=== PATIENT | female | born 1940 | race Caucasian/White ===

== ENCOUNTER 2023-11-29 09:17 | Inpatient (IN) | payer MEDICARE, SELFPAY ==
[2023-11-29] VITALS (11 sets, daily range): BP systolic 111–133; BP diastolic 34–78; PULSE 69–78; RESP 16–38; TEMP 36.6–37.2; O2SAT 96–100; BMI 28.1; BMI 28.0
--- NOTE | 2023-11-29 | ECG_ITS ---
Test Reason : SOB/CHEST PAIN Blood Pressure : / mmHG Vent. Rate : 070 BPM Atrial Rate : 070 BPM P-R Int : 278 ms QRS Dur : 142 ms QT Int : 422 ms P-R-T Axes : 090 -73 059 degrees QTc Int : 455 ms Atrial-paced rhythm with prolonged AV conduction Right bundle branch block Left anterior fascicular block Bifascicular block Abnormal ECG No previous ECGs available Referred By: Lulu Lew Electronically Signed By:WILFREDO ERICKSON
--- NOTE | ~2023-11-29 | XR_ITS ---
EXAMINATION: XR CHEST CLINICAL INFORMATION: Congestive heart failure COMPARISON: None available. TECHNIQUE: Frontal view of the chest was obtained. FINDINGS: Dual lead pacer noted unchanged and intact. Sternotomy wires intact. No significant abnormality is noted involving the heart, lungs, mediastinum, bony thorax or soft tissues. XR/XR chest 1V IMPRESSION: Unremarkable examination. Electronically signed by: Usama Brito MD 12/08/2023 11:06 AM EDT RP
--- NOTE | ~2023-11-29 | XR_ITS ---
EXAMINATION: XR CHEST CLINICAL INFORMATION: Dyspnea. COMPARISON: None available. TECHNIQUE: Frontal view of the chest was obtained. FINDINGS: Left-sided pacer with leads overlying the expected location of the right atrium and right ventricle. Median sternotomy wires. Coronary artery calcifications versus stent. No significant cardiomediastinal contour abnormality. No dense consolidation, pleural effusion or pneumothorax. No acute osseous findings. XR/XR chest 1V IMPRESSION: No acute cardiopulmonary findings. Electronically signed by: Jo Baez MD 11/29/2023 11:39 AM EDT
--- NOTE | ~2023-11-29 | XR_ITS ---
EXAMINATION: XR CHEST CLINICAL INFORMATION: Increased shortness of breath. COMPARISON: Chest radiograph dated 11/29/2023. TECHNIQUE: Frontal view of the chest was obtained. FINDINGS: The lungs are clear. The cardiomediastinal silhouette is normal in size. There is no pleural effusion or pneumothorax. No acute osseous abnormality. XR/XR chest 1V IMPRESSION: No acute cardiopulmonary findings. Electronically signed by: Naman James MD 12/01/2023 09:51 AM EDT
--- NOTE | 2023-11-29 09:49 | ED.SOB ---
HPI - SOB/Dyspnea General Chief Complaint: General Medical Stated Complaint: SOB, weakness, A&OX4 Time Seen by Provider: 11/29/23 09:22 Source: patient and old records reviewed Mode of arrival: EMS Limitations: no limitations History of Present Illness ED Provider: RENETTA DUONG Narrative: 83 yo female with PMH of STEMI on plavix, VTE on eliquis, CHF on diuretics, ASD repair s/p sternotomy, HTN, DM, HLD, GERD, PPM for SSS here with c/o getting her Pfizer COVID vaccine on Saturday and then that night started to feel ill with fevers, malaise, chest pain, dyspnea. She feels overall not well. She denies this happening before. She takes all of her medications. Her doctors are at [facility]. She has used inhalers in the past. Her breathing is labored with ambulation. [facility] 2022 hemoglobin 10.2 MD elicited complaint: shortness of breath Pertinent past history: congestive heart failure Onset (ago): day(s) (1) Context: other (s/p vaccine) Timing: constant Severity: moderate Exacerbating factors: exertion Relieving factors: rest Known history of: congestive heart failure Associated symptoms: chest pain, fever and other (malaise, fatigue chills) Treatment prior to arrival: none Related Data Home Medications ?Medication ?Instructions ?Recorded ?Confirmed apixaban 5 mg tablet (Eliquis) 5 mg PO BID 11/29/23 aripiprazole 10 mg tablet 10 mg PO BEDTIME 11/29/23 clopidogrel 75 mg tablet 75 mg PO DAILY 11/29/23 duloxetine 60 mg capsule,delayed 120 mg PO DAILY 11/29/23 release empagliflozin 25 mg tablet 25 mg PO DAILY 11/29/23 (Jardiance) ezetimibe 10 mg tablet 10 mg PO DAILY 11/29/23 glipizide 5 mg tablet, extended 5 mg PO DAILY 11/29/23 release 24 hr lamotrigine 100 mg tablet 100 mg PO BEDTIME 11/29/23 lorazepam 0.5 mg tablet 0.5 mg PO DAILY PRN anxiety attack 11/29/23 metoprolol succinate 100 mg 50 mg PO DAILY 11/29/23 tablet,extended release 24 hr pantoprazole 40 mg tablet,delayed 40 mg PO BID 11/29/23 release ranolazine 500 mg tablet,extended 500 mg PO BID 11/29/23 release,12 hr rosuvastatin 40 mg tablet 40 mg PO DAILY 11/29/23 sitagliptin phosphate 100 mg 100 mg PO DAILY 11/29/23 tablet (Januvia) torsemide 10 mg tablet mg PO 11/29/23 Allergies Allergy/AdvReac Type Severity Reaction Status Date / Time Penicillins Allergy Anaphylaxis Verified 11/29/23 09:26 vancomycin Allergy Hives Verified 11/29/23 09:26 Review of Systems Review of Systems: Constitutional : No Fever, No Chills ENT/Mouth : No Hoarseness, No sore throat, No Rhinorrhea Eyes: No Redness, No Discharge, No Vision Changes Cardiovascular : pos Chest Pain, positive SOB, positive Dyspnea on Exertion, No Edema, pos orthopnea Respiratory : positive Cough, No Sputum, no Wheezing, Gastrointestinal : No Nausea, No Vomiting, No Diarrhea, No abdominal Pain Genitourinary : No Dysuria, No Hematuria Musculoskeletal : No joint pain, No Myalgias Skin : No rash Neuro : No Weakness, No Numbness, No Headache Psych : No anxiety, depression All other systems reviewed and are negative [facility] Past Medical History Attestation statement: The following information was validated with the patient. Source: old records reviewed Medical History Sick sinus syndrome Pacemaker Diabetes Hyperlipidemia HTN (hypertension) Pulmonary embolus ASD (atrial septal defect) CAD (coronary artery disease) Social History Social History (Updated 11/29/23 @ 09:53 by Lulu Lew DO) Patient Tobacco Use Status: Never used Tobacco Smoked in Last 30 Days: No Use of substances other than those prescribed or required for medical reasons: No Advance Directives: Yes Advance Directives Information Provided: Yes Advance Directives on File: No Physical Exam Vital Signs: Vital Signs: Last Vital Signs Temp 98.8 F 11/29/23 11:50 Pulse 70 11/29/23 11:50 Resp 23 H 11/29/23 11:50 BP 126/54 L 11/29/23 11:50 Pulse Ox 99 11/29/23 11:09 O2 Del Method Nasal Cannula 11/29/23 11:09 O2 Flow Rate 2 11/29/23 11:09 BMI result Body Mass Index 28.1 Appearance: Alert. Oriented X3. No acute distress. Eyes: Pupils equal, round and reactive to light. ENT: Pharynx normal. Neck: Normal inspection. Neck supple. CVS: Normal heart rate and rhythm. Pulses normal. Respiratory: No respiratory distress. Breath sounds bases diminished Abdomen: Soft and nontender. Skin: Skin warm and dry. pale appearing skin color. Normal skin turgor. Extremities: No lower extremity edema. No calf ttp Neuro: Oriented X 3. No motor deficit. No sensory deficit. Course Course Course Narrative: recent CAD and STEMI crit under 30 has had on and off black stools type and screen one unit of blood and likely IV lasix after ordered denies rectal bleeding that she is aware of IV protonix ordered Medications Administered Discontinued Medications Generic Name Dose Route Start Last Admin Trade Name Freq PRN Reason Stop Dose Admin Pantoprazole Sodium 40 mg 11/29/23 10:18 11/29/23 11:06 Pantoprazole Sodium 40 Mg/10 Ml Vial IVPUSH 11/29/23 10:19 40 mg ONCE ONE Administration Medical Decision Making Medical Decision Making [facility] Narrative: 83 yo female with PMH of STEMI on plavix, VTE on eliquis, CHF on diuretics, ASD repair s/p sternotomy, HTN, DM, HLD, GERD, PPM for SSS here with c/o fatigue, fevers, chills, MACIAS and chest pains post COVID vaccine on Saturday. She became ill the night of her vaccine. At this time will need basic labs, CXR, viral panel, BNP and troponin. Doubt VTE given her very aggressive plavix and eliquis use - she states her applied psychology chair is aware. At this time could viral syndrome, CHF, pneumonitis, anemia given pallor Differential Diagnosis Differential Diagnoses: The differential diagnosis associated with the presentation includes viral syndrome, CHF, pneumonitis, anemia Admission/Observation Consideration of admission/observation: Escalation of care including admission/observation considered admit Consult Healthcare Provider Management of the patient was discussed with: Hospitalist Lab Data [facility] Lab Attestation statement: I reviewed the patient's lab results. 11/29/23 10:05 11/29/23 10:05 Labs: Lab Results 11/29/23 11/29/23 11/29/23 Range/Units 10:04 10:05 10:12 WBC 7.5 (4.8-10.8) X10*3/uL RBC 3.89 L (4.20-5.50) X10*6/uL Hgb 7.1 L (12.0-16.0) g/dl Hct 26.4 L (37.0-47.0) % MCV 67.9 L (80.0-98.0) fL MCH 18.3 L (27.0-33.0) pg MCHC 26.9 L (31.0-35.0) g/dl RDW 18.8 H (11.0-16.0) % Plt Count 322 (160-400) X10*3/uL MPV 9.8 (9.4-12.3) fL Immature Gran % (Auto) 0.4 (0.0-0.4) % Neut % (Auto) 80.4 H (45-73) % Lymph % (Auto) 6.8 L (20-40) % [place] % (Auto) 10.3 (2-11) % Eos % (Auto) 1.6 (0-4) % Baso % (Auto) 0.5 (0-2) % Lymph # (Auto) 0.5 L (1.2-4.9) X10*3/uL [place] # (Auto) 0.8 (0.1-1.2) X10*3/uL Eos # (Auto) 0.1 (0.0-0.4) X10*3/uL Baso # (Auto) 0.0 (0.0-0.2) X10*3/uL Abs Immat Gran (auto) 0.03 (0.00-0.03) X10*3/uL Absolute Neuts (auto) 6.0 (2.0-8.3) x10*3/uL Absolute Nucleated RBC 0.030 H (0.0-0.012) X10*3/uL Nucleated RBC % (auto) 0.4 H (0.0-0.2) /100WBC VBG pH 7.37 (7.32-7.43) VBG pCO2 58 mmHg VBG pO2 49 mmHg VBG HCO3 34 H (22-26) mmol/L VBG O2 Saturation 73.0 % VBG Base Excess 8.0 mmol/L Sodium 141 (135-145) mmol/L Potassium 3.4 (3.3-5.1) mmol/L Chloride 102 (96-108) mmol/L Carbon Dioxide 33 H (22-29) mmol/L Anion Gap 9 L (12-20) BUN 16 (9-16) mg/dL Creatinine 0.88 (0.5-1.4) mg/dL Estim Creat Clear Calc 51.3 Estimated GFR > 60 Random Glucose 214 H (60-115) mg/dL Calcium 9.2 (8.4-10.2) mg/dL Magnesium 2.4 (1.6-2.6) mg/dL Total Bilirubin 0.5 (0.0-1.0) mg/dL Direct Bilirubin 0.2 (0.0-0.5) mg/dL AST 15 (5-31) U/L ALT 12 (0-31) U/L Alkaline Phosphatase 100 (39-117) U/L Troponin I High Sens 9.8 (<3.5-17.0) ng/L C-Reactive Protein 1.22 H (< or = 0.50) mg/dL B-Natriuretic Peptide 726 H (<100) pg/mL Total Protein 6.7 (6.5-8.0) g/dL Albumin 3.8 (3.5-5.0) g/dL Lipase 19 (8-78) U/L Procalcitonin 0.13 ng/mL Urine Color Yellow Urine Appearance Clear Urine pH 5.5 (5.0-9.0) Ur Specific [place] 1.015 (1.005-1.025) Urine Protein Trace (Neg-Trace) mg/dL Urine Glucose (UA) >=1000 H (Negative) mg/dL Urine Ketones Negative (Negative) mg/dL Urine Blood Negative (Negative) Urine Nitrite Negative (Negative) Ur Leukocyte Esterase Small (1+) H (Negative) Urine RBC 0-2 (0-2) /HPF Urine WBC 21-50 H (0-5) /HPF Ur Squamous Epith Cells 3-5 (0-2) /HPF Urine Bacteria None Seen (None Seen) Hyaline Casts 0-2 (0-2) /LPF Stool Occult Blood (NEGATIVE) Influenza Type A (PCR) NEGATIVE (Negative) Influenza Type B (PCR) NEGATIVE (Negative) RSV RNA Qual (PCR) NEGATIVE (Negative) SARS-CoV-2 RNA (RT-PCR) NEGATIVE (Negative) Blood Type Antibody Screen Crossmatch 11/29/23 Range/Units 10:30 WBC (4.8-10.8) X10*3/uL RBC (4.20-5.50) X10*6/uL Hgb (12.0-16.0) g/dl Hct (37.0-47.0) % MCV (80.0-98.0) fL MCH (27.0-33.0) pg MCHC (31.0-35.0) g/dl RDW (11.0-16.0) % Plt Count (160-400) X10*3/uL MPV (9.4-12.3) fL Immature Gran % (Auto) (0.0-0.4) % Neut % (Auto) (45-73) % Lymph % (Auto) (20-40) % [place] % (Auto) (2-11) % Eos % (Auto) (0-4) % Baso % (Auto) (0-2) % Lymph # (Auto) (1.2-4.9) X10*3/uL [place] # (Auto) (0.1-1.2) X10*3/uL Eos # (Auto) (0.0-0.4) X10*3/uL Baso # (Auto) (0.0-0.2) X10*3/uL Abs Immat Gran (auto) (0.00-0.03) X10*3/uL Absolute Neuts (auto) (2.0-8.3) x10*3/uL Absolute Nucleated RBC (0.0-0.012) X10*3/uL Nucleated RBC % (auto) (0.0-0.2) /100WBC VBG pH (7.32-7.43) VBG pCO2 mmHg VBG pO2 mmHg VBG HCO3 (22-26) mmol/L VBG O2 Saturation % VBG Base Excess mmol/L Sodium (135-145) mmol/L Potassium (3.3-5.1) mmol/L Chloride (96-108) mmol/L Carbon Dioxide (22-29) mmol/L Anion Gap (12-20) BUN (9-16) mg/dL Creatinine (0.5-1.4) mg/dL Estim Creat Clear Calc Estimated GFR Random Glucose (60-115) mg/dL Calcium (8.4-10.2) mg/dL Magnesium (1.6-2.6) mg/dL Total Bilirubin (0.0-1.0) mg/dL Direct Bilirubin (0.0-0.5) mg/dL AST (5-31) U/L ALT (0-31) U/L Alkaline Phosphatase (39-117) U/L Troponin I High Sens (<3.5-17.0) ng/L C-Reactive Protein (< or = 0.50) mg/dL B-Natriuretic Peptide (<100) pg/mL Total Protein (6.5-8.0) g/dL Albumin (3.5-5.0) g/dL Lipase (8-78) U/L Procalcitonin ng/mL Urine Color Urine Appearance Urine pH (5.0-9.0) Ur Specific [place] (1.005-1.025) Urine Protein (Neg-Trace) mg/dL Urine Glucose (UA) (Negative) mg/dL Urine Ketones (Negative) mg/dL Urine Blood (Negative) Urine Nitrite (Negative) Ur Leukocyte Esterase (Negative) Urine RBC (0-2) /HPF Urine WBC (0-5) /HPF Ur Squamous Epith Cells (0-2) /HPF Urine Bacteria (None Seen) Hyaline Casts (0-2) /LPF Stool Occult Blood NEGATIVE (NEGATIVE) Influenza Type A (PCR) (Negative) Influenza Type B (PCR) (Negative) RSV RNA Qual (PCR) (Negative) SARS-CoV-2 RNA (RT-PCR) (Negative) Blood Type A Positive Antibody Screen NEGATIVE Crossmatch See Detail Independent Interpretation I performed an independent interpretation of an: EKG and Plain X-Ray Interpretation: Rate: 70 Rhythm: av paced [place]: left Normal P waves. 1st degree RBBB ST T wave : no COLT inverted t waves V1-V2. qTC: 455 prior studies: no prior but no acute ischemia The study has been interpreted contemporaneously by me. . Radiology Impression Discussion of test interpretation with radiology: I have reviewed the radiologist's reading. Independent Historian Clinical information obtained from an independent historian. History obtained from or confirmed by: EMS External Record Review External record reviewed: Outpatient record Critical Care Time Critical Care Time Critical Care Time: Yes Total Critical Care Time: 35 Attestation: IV lasix, nitro paste, consult, ECHO, review of records I attest to this time spent taking care of the patient Discharge Plan Discharge Clinical Impression: Malaise CHF (congestive heart failure) Qualifiers: Heart failure type: unspecified Heart failure chronicity: acute on chronic Qualified Code(s): I50.9 - Heart failure, unspecified Anemia Qualifiers: Anemia type: unspecified type Qualified Code(s): D64.9 - Anemia, unspecified Patient Disposition: Admitted As Inpatient Print Language: [place]
--- NOTE | 2023-11-29 09:50 | PC.NURSE ---
Pt brought in by ambulance from home, reports she got the covid booster on Saturday and since then has felt unwell. Pt reports S/S of SOB, sharp chest pains on left chest, general malaise. Pt has significant cardiac hx, pacemaker on demand. Alert and oriented, breathing even and unlabored while at rest, noted to have increased SOB with talking. Skin warm and dry. No O2 at baseline.
[2023-11-29 10:10] LABS: MANUAL DIFF FLAG NO
--- NOTE | 2023-11-29 10:13 | MHC.EDTECH ---
Patient change attendant, EKG was taken and read by the provider, Blood drawn and send to the lab,vitals taken and call dan within pt reach
[2023-11-29 10:15] LABS: Basophils Percent Auto 0.5 % (0-2); Eosinophils Absolute Auto 0.1 X10*3/uL (0.0-0.4); Eosinophils Percent Auto 1.6 % (0-4); Hematocrit 26.4 % (37.0-47.0); Hemoglobin 7.1 g/dl (12.0-16.0); Imm Gran Abs Auto 0.03 X10*3/uL (0.00-0.03); Imm Gran Pct Auto 0.4 % (0.0-0.4); Lymphocytes Absolute Auto 0.5 X10*3/uL (1.2-4.9); Lymphocytes Percent Auto 6.8 % (20-40); Mean Corpuscular HGB Conc 26.9 g/dl (31.0-35.0); Mean Corpuscular Hemoglobin 18.3 pg (27.0-33.0); Mean Corpuscular Volume 67.9 fL (80.0-98.0); Mean Platelet Volume 9.8 fL (9.4-12.3); Monocytes Absolute Auto 0.8 X10*3/uL (0.1-1.2); Monocytes Percent Auto 10.3 % (2-11); NRBC Pct Auto 0.4 /100WBC (0.0-0.2); Neutrophils Percent Auto 80.4 % (45-73); Platelet Count 322 X10*3/uL (160-400); Red Blood Count 3.89 X10*6/uL (4.20-5.50); Red Cell Distribution Width 18.8 % (11.0-16.0); White Blood Count 7.5 X10*3/uL (4.8-10.8)
[2023-11-29 10:15] LABS: Venous Blood Gas Refer to POC result
[2023-11-29 10:16] LABS: VBG HCO3 34 mmol/L (22-26); VBG pCO2 58 mmHg; VBG pH 7.37 (7.32-7.43); VBG pO2 49 mmHg
[2023-11-29 10:21] LABS: Appearance Urine Clear; Color Urine Yellow; Glucose Urine UA >=1000 mg/dL (Negative); Leukocyte Esterase Urine Small (1+) (Negative); Nitrite Urine Negative (Negative); PH 5.5 (5.0-9.0); Specific Gravity - Urine 1.015 (1.005-1.025); UMIC TRIGGER UACC YES; Urine Blood Negative (Negative); Urine Ketones Negative (Negative); Urine Protein Trace mg/dL (Neg-Trace)
[2023-11-29 10:26] LABS: Bacteria Urine None Seen (None Seen); Hyaline Casts Urine 0-2 /LPF (0-2); RBC Urine 0-2 /HPF (0-2); UACC Culture Trigger YES; WBC Urine 21-50 /HPF (0-5)
--- NOTE | 2023-11-29 10:28 | MHC.EDTECH ---
Called Hemo lab at [facility] Pt last lab was 01/17/23 HgB was 10.2 faxing results
--- NOTE | 2023-11-29 10:29 | MHC.EDTECH ---
called [facility] lab at [facility] most recent CBC is 01/17/23 HgB was 10.2 faxing results
[2023-11-29 10:34] LABS: B Type Natriuretic Peptide 726 pg/mL (<100)
[2023-11-29 10:38] LABS: Alanine Aminotransferase 12 U/L (0-31); Albumin Level 3.8 g/dL (3.5-5.0); Alkaline Phosphatase 100 U/L (39-117); Anion Gap 9 (12-20); Aspartate Amino Transferase 15 U/L (5-31); Bilirubin Direct 0.2 mg/dL (0.0-0.5); Bilirubin Total 0.5 mg/dL (0.0-1.0); Blood Urea Nitrogen 16 mg/dL (9-16); C Reactive Protein 1.22 mg/dL (< or = 0.50); Calcium 9.2 mg/dL (8.4-10.2); Carbon Dioxide 33 mmol/L (22-29); Chloride 102 mmol/L (96-108); Creatinine Clr Calc Pharmacy 51.3; Estimated Glomerular Filt Rate > 60; Glucose Random 214 mg/dL (60-115); Lipase 19 U/L (8-78); Magnesium 2.4 mg/dL (1.6-2.6); Potassium 3.4 mmol/L (3.3-5.1); Sodium 141 mmol/L (135-145); Total Protein 6.7 g/dL (6.5-8.0)
[2023-11-29 10:39] LABS: Troponin-I High Sensitivity 9.8 ng/L (<3.5-17.0)
[2023-11-29 10:45] LABS: OBS Int Ctl Valid YES; OBS1 NEGATIVE (NEGATIVE)
[2023-11-29 10:52] LABS: Procalcitonin 0.13 ng/mL
[2023-11-29 10:53] LABS: Influenza A PCR NEGATIVE (Negative); Influenza B PCR NEGATIVE (Negative); Resp Syncy Virus RNA Qual PCR NEGATIVE (Negative); SARS COV2 PCR INHOUSE NEGATIVE (Negative)
[2023-11-29] MEDS: Pantoprazole Sodium 40 MG/10 ML VIAL IVPUSH ×2 (11:06→18:29)
--- NOTE | 2023-11-29 11:22 | PC.NURSE ---
Pt has two points of IV access, VSS. Placed on O2 via 2L NC for comfort per MD. Alert and oriented, on dental service technician.
--- NOTE | 2023-11-29 11:51 | PC.NURSE ---
This RN remained in the room for first 15 mins of transfusion. Vitals remained stable, pt denied any new complaints or changes. No transfusion-related reaction at this time
[2023-11-29] MEDS: Furosemide 20 MG/2 ML VIAL IVPUSH (12:54)
--- NOTE | 2023-11-29 12:55 | PC.NURSE ---
Per provider, orders to give the lasix approx half way through blood transfusion. Pt is tolerating well, denies new symptoms
--- NOTE | 2023-11-29 13:04 | PHA.MEDREC ---
Addendum entered by Ezra Alcaraz 11/29/23 13:39: Reviewed by [facility] Original Note: Pharmacy Consult ? Medication Reconciliation Pharmacy has completed the medication reconciliation. Spoke to patient to confirm med list. Patient states she does not take Lorazepam 0.5 mg. Patient confirmed she does take both Eliquis 5 mg and Clopidogrel 75 mg, however she thinks the Dr will be change one of them.
--- NOTE | 2023-11-29 14:35 | PC.NURSE ---
Blood transfusion ended, pt reports feeling well. VSS. No signs of resp distress. No signs of transfusion-related reactions.
--- NOTE | 2023-11-29 15:46 | PM.IMHP ---
History of Present Illness Date of Service: 11/29/23 Attending physician on admission: Omer Rosa Chief Complaint: SOB, generalized weakness Pt is an 83-year-old female with a PMH significant for?CAD, NSTEMI on Plavix, AFib on Eliquis, unspecified CHF, HTN, [id number] type 2 diabetes, SSS s/p pacemaker in place, HTN, HLD, and GERD who presents to the ED with?SOB, MACIAS, and malaise x2 days. Patient reports symptoms began shortly after receiving a COVID booster shot on Saturday. Initially felt sore in both of her upper arms, but then began experiencing shortness a breath, dyspnea, and unsteadiness on her feet especially with exertion. Also perhaps has had worsening lightheadedness and dizziness, though patient admits these symptoms are chronic and is difficult for her to say. Has been experiencing dark colored stools for a long time though unable to further specify length. Denies any nausea, vomiting, abdominal pain. No chest pain/pressure or palpitations. Denies any GERD like symptoms. No hematemesis, hemoptysis, or hematochezia. Denies any NSAID use. No recent falls at home. Denies lower leg edema. Follows with [facility]. In the ED pt was tachypneic up to 28 and soft BP as low as 111/51. Labs were significant for microcytic anemia of 7.1/26.4 and MCV 69, BNP 726, and procalcitonin of 0.13. No leukocytosis No significant electrolyte abnormalities. Renal function and hepatic function baseline. Stool negative for occult blood. UA with small amount of leukocyte esterase and wbc's 21-50, but no bacteria seen. Tested negative for flu, COVID, RSV. CXR showed no acute cardiopulmonary. EKG demonstrated atrial paced rhythm with prolonged AV conduction with RBBB, but no significant ST elevations or depressions. Pt was treated with furosemide 20 mg IV, Protonix, and transfused 1 unit PRBCs. Pt will be admitted to the hospital for treatment and further evaluation of symptomatic anemia likely from UGIB. Review of Systems Review of Systems: SOB, MACIAS Lightheadedness, dizziness Generalized weakness, malaise Dark-colored stools Denies fever, chills, nausea, vomiting, abdominal pain No hematemesis, hemoptysis, or hematochezia No chest pain/pressure, palpitations [facility] Medical History Sick sinus syndrome Pacemaker Diabetes Hyperlipidemia HTN (hypertension) Pulmonary embolus ASD (atrial septal defect) CAD (coronary artery disease) Social History Patient Tobacco Use Status: Never used Tobacco Smoked in Last 30 Days: No Use of substances other than those prescribed or required for medical reasons: No Advance Directives: Yes Advance Directives Information Provided: Yes Advance Directives on File: No Meds Allergies Allergy/AdvReac Type Severity Reaction Status Date / Time Penicillins Allergy Anaphylaxis Verified 11/29/23 09: vancomycin Allergy Hives Verified 11/29/23 09:26 Home Medications ?Medication ?Instructions ?Recorded ?Confirmed ?Last Taken ?Type apixaban 5 mg tablet (Eliquis) 5 mg PO BID 11/29/23 11/29/23 11/29/23 History aripiprazole 10 mg tablet 10 mg PO BEDTIME 11/29/23 11/29/23 11/28/23 History clopidogrel 75 mg tablet 75 mg PO DAILY 11/29/23 11/29/23 11/29/23 History duloxetine 60 mg capsule,delayed 120 mg PO DAILY 11/29/23 11/29/23 11/29/23 History release empagliflozin 25 mg tablet 25 mg PO DAILY 11/29/23 11/29/23 11/29/23 History (Jardiance) ezetimibe 10 mg tablet 10 mg PO DAILY 11/29/23 11/29/23 11/29/23 History glipizide 5 mg tablet, extended 5 mg PO DAILY 11/29/23 11/29/23 11/29/23 History release 24 hr lamotrigine 100 mg tablet 100 mg PO BEDTIME 11/29/23 11/29/23 11/28/23 History metoprolol succinate 100 mg 50 mg PO DAILY 11/29/23 11/29/23 11/29/23 History tablet,extended release 24 hr pantoprazole 40 mg tablet,delayed 40 mg PO BID 11/29/23 11/29/23 11/29/23 History release ranolazine 500 mg tablet,extended 500 mg PO BID 11/29/23 11/29/23 11/29/23 History release,12 hr rosuvastatin 40 mg tablet 40 mg PO DAILY 11/29/23 11/29/23 11/29/23 History sitagliptin phosphate 100 mg 100 mg PO DAILY 11/29/23 11/29/23 11/29/23 History tablet (Januvia) torsemide 10 mg tablet 20 mg PO DAILY 11/29/23 11/29/23 11/29/23 History Physical Exam Vital Signs and Narrative: Vital Signs: Last Vital Signs Temp 99 F 11/29/23 14:33 Pulse 71 11/29/23 14:33 Resp 28 H 11/29/23 14:33 BP 125/53 L 11/29/23 14:33 Pulse Ox 100 11/29/23 14:05 O2 Del Method Nasal Cannula 11/29/23 14:05 O2 Flow Rate 2 11/29/23 14:05 BMI result Body Mass Index 28.1 General: AOx3, no acute distress Resp: CTA bilaterally CVS: S1, S2, RRR, 2/6 murmur GI: +BS, NT, no distention Skin: Warm, dry Neuro: Cranial nerves II-XII grossly intact bilaterally. Motor grossly intact bilaterally Extremities: No edema Psych: Appropriate affect Results Labs 11/29/23 10:05 11/29/23 10:05 Labs: Laboratory Results - last 24 hr 11/29/23 11/29/23 11/29/23 10:04 10:05 10:12 MCV 67.9 L MCH 18.3 L MCHC 26.9 L RDW 18.8 H Plt Count 322 MPV 9.8 Immature Gran % (Auto) 0.4 Neut % (Auto) 80.4 H Lymph % (Auto) 6.8 L [place] % (Auto) 10.3 Eos % (Auto) 1.6 Baso % (Auto) 0.5 Lymph # (Auto) 0.5 L [place] # (Auto) 0.8 Eos # (Auto) 0.1 Baso # (Auto) 0.0 Abs Immat Gran (auto) 0.03 Absolute Neuts (auto) 6.0 Absolute Nucleated RBC 0.030 H Nucleated RBC % (auto) 0.4 H VBG pH 7.37 VBG pCO2 58 VBG pO2 49 VBG HCO3 34 H VBG O2 Saturation 73.0 VBG Base Excess 8.0 Anion Gap 9 L Estim Creat Clear Calc 51.3 Estimated GFR > 60 Random Glucose 214 H Calcium 9.2 Magnesium 2.4 Total Bilirubin 0.5 Direct Bilirubin 0.2 AST 15 ALT 12 Alkaline Phosphatase 100 Troponin I High Sens 9.8 C-Reactive Protein 1.22 H B-Natriuretic Peptide 726 H Total Protein 6.7 Albumin 3.8 Lipase 19 Procalcitonin 0.13 Urine Color Yellow Urine Appearance Clear Urine pH 5.5 Ur Specific [place] 1.015 Urine Protein Trace Urine Glucose (UA) >=1000 H Urine Ketones Negative Urine Blood Negative Urine Nitrite Negative Ur Leukocyte Esterase Small (1+) H Urine RBC 0-2 Urine WBC 21-50 H Ur Squamous Epith Cells 3-5 Urine Bacteria None Seen Hyaline Casts 0-2 Stool Occult Blood Influenza Type A (PCR) NEGATIVE Influenza Type B (PCR) NEGATIVE RSV RNA Qual (PCR) NEGATIVE SARS-CoV-2 RNA (RT-PCR) NEGATIVE Blood Type Antibody Screen Crossmatch 11/29/23 10:30 MCV MCH MCHC RDW Plt Count MPV Immature Gran % (Auto) Neut % (Auto) Lymph % (Auto) [place] % (Auto) Eos % (Auto) Baso % (Auto) Lymph # (Auto) [place] # (Auto) Eos # (Auto) Baso # (Auto) Abs Immat Gran (auto) Absolute Neuts (auto) Absolute Nucleated RBC Nucleated RBC % (auto) VBG pH VBG pCO2 VBG pO2 VBG HCO3 VBG O2 Saturation VBG Base Excess Anion Gap Estim Creat Clear Calc Estimated GFR Random Glucose Calcium Magnesium Total Bilirubin Direct Bilirubin AST ALT Alkaline Phosphatase Troponin I High Sens C-Reactive Protein B-Natriuretic Peptide Total Protein Albumin Lipase Procalcitonin Urine Color Urine Appearance Urine pH Ur Specific [place] Urine Protein Urine Glucose (UA) Urine Ketones Urine Blood Urine Nitrite Ur Leukocyte Esterase Urine RBC Urine WBC Ur Squamous Epith Cells Urine Bacteria Hyaline Casts Stool Occult Blood NEGATIVE Influenza Type A (PCR) Influenza Type B (PCR) RSV RNA Qual (PCR) SARS-CoV-2 RNA (RT-PCR) Blood Type A Positive Antibody Screen NEGATIVE Crossmatch See Detail Imaging Radiologist's Impressions: Impressions Chest X-Ray 11/29/23 09:38 IMPRESSION: No acute cardiopulmonary findings. Electronically signed by: Jo Baez MD 11/29/2023 11:39 AM EDT Assessment and Plan (1) Anemia: Qualifiers: Anemia type: unspecified type Qualified Code(s): D64.9 - Anemia, unspecified Status: Acute Plan Pt is an 83-year-old female with a PMH significant for?CAD, NSTEMI on Plavix, AFib on Eliquis, unspecified CHF, HTN, [id number]-[id number] type 2 diabetes, SSS s/p pacemaker in place, HTN, HLD, and GERD who presents to the ED with?SOB, MACIAS, and malaise x2 days. Pt will be admitted to the hospital for treatment and further evaluation of symptomatic anemia likely from UGIB. Symptomatic anemia Patient with SOB, MACIAS, malaise, lightheadedness and dizziness, dark-colored stools for past weeks to months H&H 7.1/26.7 with MCV 67.9 Concerning for UGIB in the setting of Plavix and Eliquis Patient given IV Protonix and transfused 1 unit PRBCs in the ED Will treat with Protonix b.i.d. Hold Plavix and Eliquis GI consult NPO after midnight for likely EGD Check iron studies Follow CBC CHF unspecified Not in acute exacerbation BNP elevated, but baseline unknown and likely in the setting of anemia Clinically patient appears euvolemic; CXR negative for pulmonary edema or pleural effusions Continue home torsemide AFib Hold Eliquis Continue metoprolol CAD/HLD Hold Plavix Continue ezetimibe, statin, ranolazine [id number]-npwuvxtpl type 2 diabetes Continue glipizide, Januvia Sliding-scale insulin Diabetic diet Mood disorder Continue omeprazole, duloxetine, lamotrigine DNR/DNI, verified with pt and family at bedside Attending:?Dr. Rosa DVT Prophylaxis: Pneumatic compression due to anemia Pt will require a hospitalization of at least two nights for treatment of?symptomatic anemia concerning for UGIB. Patient has been transfused 1 unit of PRBCs and will require additional hospitalization for close monitoring of labs as well as consultation with Gastroenterology and likely endoscopy. Quality Stroke Does the patient have a stroke diagnosis?: No VTE Prior VTE?: No VTE Risk Level:: Medical - moderate - high VTE Device Contraindication: Treatment Not Indicated VTE Drug Contraindication: N/A - Med Ordered
[2023-11-29 17:48] LABS: Iron 11 mcg/dL (30-160); Percent Iron Saturation 3 % (15-50); Total Iron Binding Capacity 384 mcg/dL (228-428); Unsaturated Iron Binding 373 ug/dL
[2023-11-29 18:37] LABS: Glucose, Whole Blood 142 mg/dL (60-115)
[2023-11-29] MEDS: ARIPiprazole 10 MG TABLET PO (20:18)
[2023-11-29] MEDS: lamoTRIgine 100 MG TABLET PO (20:18)
[2023-11-29] MEDS: Acetaminophen 325 MG TABLET 650 MG PO (20:18)
[2023-11-29] MEDS: Ranolazine 500 MG TAB.ER.12H PO (20:18)
[2023-11-29 20:19] LABS: Glucose, Whole Blood 179 mg/dL (60-115)
[2023-11-29] MEDS: 0.9 % Sodium Chloride Flush 3 ML SYRINGE IVFLUSH (20:23)
[2023-11-29] MEDS: Insulin Lispro 100 UNIT/ML 3 ML VIAL SUBCUT (21:03)
[2023-11-30 04:00] VITALS: BP 128/73; PULSE 80; RESP 18; TEMP 36; O2SAT 100
[2023-11-30] MEDS: Pantoprazole Sodium 40 MG/10 ML VIAL IVPUSH ×2 (05:33→16:11)
[2023-11-30 07:09] VITALS: BP 131/58; PULSE 86; RESP 16; TEMP 36.3; O2SAT 100
[2023-11-30 07:32] LABS: Hematocrit 30.2 % (37.0-47.0); Hemoglobin 8.5 g/dl (12.0-16.0); Mean Corpuscular HGB Conc 28.1 g/dl (31.0-35.0); Mean Corpuscular Volume 71.1 fL (80.0-98.0); Platelet Count 297 X10*3/uL (160-400); Red Blood Count 4.25 X10*6/uL (4.20-5.50); Red Cell Distribution Width 20.4 % (11.0-16.0); White Blood Count 10.3 X10*3/uL (4.8-10.8)
[2023-11-30] MEDS: DULoxetine HCl 60 MG CAPSULE.DR 120 MG PO (07:39)
[2023-11-30] MEDS: Ranolazine 500 MG TAB.ER.12H PO ×2 (07:39→20:32)
[2023-11-30] MEDS: Atorvastatin Calcium 80 MG TABLET PO (07:39)
[2023-11-30] MEDS: Ezetimibe 10 MG TABLET PO (07:39)
[2023-11-30] MEDS: 0.9 % Sodium Chloride Flush 3 ML SYRINGE IVFLUSH ×3 (07:40→20:32)
[2023-11-30] MEDS: Torsemide 20 MG TABLET PO (07:40)
[2023-11-30] MEDS: Metoprolol Succinate ER 50 MG TAB.ER.24H PO (07:40)
[2023-11-30 07:44] LABS: Anion Gap 9 (12-20); Blood Urea Nitrogen 16 mg/dL (9-16); Calcium 9.5 mg/dL (8.4-10.2); Carbon Dioxide 36 mmol/L (22-29); Chloride 102 mmol/L (96-108); Estimated Glomerular Filt Rate 58; Glucose Random 104 mg/dL (60-115); Potassium 3.6 mmol/L (3.3-5.1); Sodium 143 mmol/L (135-145)
[2023-11-30 07:56] LABS: Glucose, Whole Blood 113 mg/dL (60-115)
[2023-11-30 07:59] VITALS: O2SAT 95
[2023-11-30 11:25] LABS: Glucose, Whole Blood 103 mg/dL (60-115)
--- NOTE | 2023-11-30 12:06 | MHC.CM.PN ---
CM attempted to meet with patient for CM assessment. Patient visiting w/ family and requests this CM return later this afternoon.
--- NOTE | 2023-11-30 12:58 | HO.PM.IMPN ---
Subjective Subjective Date of Service: 11/30/23 Interval History: Offers no acute complaints this morning feels better denies shortness of breath, no chest pain, no lightheadedness, no dizziness, no palpitations, no acute overnight events Denies melena, no hematemesis. Review of Systems All other system reviewed and are negative. Physical Exam Vital Signs: Vital Signs: Last Vital Signs Temp 97.4 F 11/30/23 07:09 Pulse 86 11/30/23 07:09 Resp 16 11/30/23 07:09 BP 131/58 L 11/30/23 07:09 Pulse Ox 95 11/30/23 07:59 O2 Del Method Nasal Cannula 11/30/23 07:59 O2 Flow Rate 2 11/30/23 07:59 BMI result Body Mass Index 28.0 Const: Other: General resting comfortably in no acute distress. Neck supple no JVD. CVS regular rate rhythm, Respiratory lungs clear to auscultation, no respiratory distress, no wheeze, no rhonchi. Gastrointestinal abdomen soft, non tender, bowel sounds audible Extremities no edema. Neuro non focal Skin no rash Psych appropriate affect Objective Data Active Medications Acetaminophen (Acetaminophen 325 Mg Tablet) 650 mg PO Q6H PRN PRN Reason: Pain, Mild (Pain Scale 1-3), fever or headache Last Admin: 11/29/23 20:18 Dose: 650 mg Documented By: CHRISTOPHE Aripiprazole (Aripiprazole 10 Mg Tablet) 10 mg PO BEDTIME [facility] Last Admin: 11/29/23 20:18 Dose: 10 mg Documented By: CHRISTOPHE Atorvastatin Calcium (Atorvastatin Calcium 80 Mg Tablet) 80 mg PO DAILY [facility] Last Admin: 11/30/23 07:39 Dose: 80 mg Documented By: LINDA Benzonatate (Benzonatate 100 Mg Capsule) 100 mg PO TID PRN PRN Reason: Cough Calcium Carbonate (Calcium Carbonate 750 Mg Tab.Chew) 750 mg PO Q4H PRN PRN Reason: Heartburn Duloxetine HCl (Duloxetine Hcl 60 Mg Capsule.Dr) 120 mg PO DAILY [facility] Last Admin: 11/30/23 07:39 Dose: 120 mg Documented By: LINDA Ezetimibe (Ezetimibe 10 Mg Tablet) 10 mg PO DAILY [facility] Last Admin: 11/30/23 07:39 Dose: 10 mg Documented By: LINDA Glipizide (Glipizide Xl 5 Mg Tab.Er.24) 5 mg PO DAILY [facility] Last Admin: 11/30/23 07:37 Dose: Not Given Documented By: LINDA Non-Admin Reason: NPO Glucose (Glucose Gel 15 Gm Gel..Gram.) 15 gm PO Q15M PRN; Protocol PRN Reason: per Hypoglycemia Standing Ord. Dextrose (D10) 250 mls @ 750 mls/hr IV Q15M PRN; Protocol PRN Reason: per Hypoglycemia Standing Ord. Insulin Human Lispro (Insulin Lispro 100 Unit/Ml 3 Ml Vial) 0 unit SUBCUT QIDACHS [facility]; Protocol Last Admin: 11/30/23 11:52 Dose: Not Given Documented By: LINDA Non-Admin Reason: No Insulin Coverage Lamotrigine (Lamotrigine 100 Mg Tablet) 100 mg PO BEDTIME [facility] Last Admin: 11/29/23 20:18 Dose: 100 mg Documented By: CHRISTOPHE Magnesium Hydroxide (Milk Of Magnesia 30 Ml Oral.Susp) 30 ml PO DAILY PRN PRN Reason: Constipation Melatonin (Melatonin 3 Mg Tablet) 6 mg PO BEDTIME PRN PRN Reason: Insomnia Metoprolol Succinate (Metoprolol Succinate Er 50 Mg Tab.Er.24h) 50 mg PO DAILY [facility]; Protocol Last Admin: 11/30/23 07:40 Dose: 50 mg Documented By: LINDA Ondansetron HCl (Ondansetron Hcl 4 Mg/2 Ml Vial) 4 mg IVPUSH Q8H PRN PRN Reason: Nausea and Vomiting Pantoprazole Sodium (Pantoprazole Sodium 40 Mg/10 Ml Vial) 40 mg IVPUSH BID@0630,1630 [facility] Last Admin: 11/30/23 05:33 Dose: 40 mg Documented By: CHRISTOPHE Ranolazine (Ranolazine 500 Mg Tab.Er.12h) 500 mg PO BID [facility] Last Admin: 11/30/23 07:39 Dose: 500 mg Documented By: LINDA Sitagliptin Phosphate (Sitagliptin Phosphate 100 Mg Tablet) 100 mg PO DAILY [facility] Last Admin: 11/30/23 07:37 Dose: Not Given Documented By: LINDA Non-Admin Reason: NPO Sodium Chloride (0.9 % Sodium Chloride Flush 3 Ml Syringe) 3 ml IVFLUSH QSHIFT [facility] Last Admin: 11/30/23 07:40 Dose: 3 ml Documented By: LINDA Torsemide (Torsemide 20 Mg Tablet) 20 mg PO DAILY [facility]; Protocol Last Admin: 11/30/23 07:40 Dose: 20 mg Documented By: LINDA Labs 11/30/23 05:50 11/30/23 05:50 Labs: Laboratory Results - last 24 hr 11/29/23 11/29/23 11/29/23 10:05 10:30 18:34 MCV MCH MCHC RDW Plt Count MPV Absolute Nucleated RBC Nucleated RBC % (auto) Anion Gap Estim Creat Clear Calc Estimated GFR POC Glucose 142 H Random Glucose Calcium Iron 11 L TIBC 384 % Saturation 3 L Unsat Iron Binding 373 Crossmatch See Detail 11/29/23 11/30/23 11/30/23 20:09 05:50 07:51 MCV 71.1 L MCH 20.0 L MCHC 28.1 L RDW 20.4 H Plt Count 297 MPV 10.0 Absolute Nucleated RBC 0.000 Nucleated RBC % (auto) 0.0 Anion Gap 9 L Estim Creat Clear Calc 49.0 Estimated GFR 58 POC Glucose 179 H 113 Random Glucose 104 Calcium 9.5 Iron TIBC % Saturation Unsat Iron Binding Crossmatch 11/30/23 11:21 MCV MCH MCHC RDW Plt Count MPV Absolute Nucleated RBC Nucleated RBC % (auto) Anion Gap Estim Creat Clear Calc Estimated GFR POC Glucose 103 Random Glucose Calcium Iron TIBC % Saturation Unsat Iron Binding Crossmatch Microbiology Microbiology Results: Microbiology 11/29/23 Unknown Urine Culture - Final Urine clean catch - Clean Catch Midstream Assessment and Plan (1) Malaise: Status: Acute (2) Anemia: Status: Acute (3) CHF (congestive heart failure): Status: Acute (4) Iron deficiency anemia: Status: Acute Plan 83-year-old female with a PMH significant for?CAD, NSTEMI on Plavix, AFib on Eliquis, unspecified CHF, HTN, [id number] type 2 diabetes, SSS s/p pacemaker in place, HTN, HLD, and GERD who presents to the ED with?SOB, MACIAS, and malaise x2 days. Pt will be admitted to the hospital for treatment and further evaluation of symptomatic anemia likely from UGIB. Symptomatic anemia Shortness of breath, lightheadedness and dizziness resolved H&H 7.1/26.7 treated with 1 unit of packed RBC hematocrit improved to 30.2 Iron studies consistent with iron deficiency anemia, monitor CBC Likely GIB in the setting of Plavix and Eliquis Continue Protonix b.i.d. Hold Plavix and Eliquis GI consult Clear liquid diet Iron deficiency anemia Treat with iron supplement. CHF unspecified (echo not available) Not in acute exacerbation BNP elevated, but baseline unknown and likely in the setting of anemia Clinically patient appears euvolemic; CXR negative for pulmonary edema or pleural effusions Continue home torsemide AFib Hold Eliquis Continue metoprolol CAD/HLD Hold Plavix Continue ezetimibe, statin, ranolazine Uas-hipguob-pgvbchnqx type 2 diabetes Blood sugar 113 hold glipizide, and Januvia Sliding-scale insulin Diabetic diet Mood disorder Continue duloxetine, lamotrigine DNR/DNI, verified with pt and family at bedside DVT Prophylaxis: Pneumatic compression due to anemia Pt will require continued inpatient hospitalization for treatment of?symptomatic anemia concerning for GIB will require close CBC monitoring and expert consultation for further workup including upper endoscopy and colonoscopy. Quality Stroke Does the patient have a stroke diagnosis?: No VTE Prior VTE?: No VTE Risk Level:: Medical - moderate - high VTE Device Contraindication: Treatment Not Indicated VTE Drug Contraindication: N/A - Med Ordered
--- NOTE | 2023-11-30 13:19 | MHC.CM.PN ---
Patient lives in an apartment w/ . Ambulates w/ a rollator. Has a CUSTOMER SALES REPRESENTATIVE 2hrs/wk through [facility]. Requesting increase in hours - [facility] referral sent via [facility]. PCP Yobany Weinberg MD Reports she has an HCP naming daughter Marii and son Ace as HCA's. Copy requested. Family to bring in. DP: Home, resume [facility] services w/ ? increase in hours. Family to transport. CM will continue to follow.
[2023-11-30 15:37] VITALS: BP 130/62; PULSE 76; RESP 20; TEMP 36.2; O2SAT 98
[2023-11-30 16:13] LABS: Glucose, Whole Blood 95 mg/dL (60-115)
[2023-11-30 19:41] VITALS: BP 145/65; PULSE 77; RESP 18; TEMP 36.8; O2SAT 98
--- NOTE | 2023-11-30 19:55 | P.EN_ITS ---
Event Note Date of Service: 11/30/23 Event Note: GI Consult-Full note dictated-History from patient, RN, and EMR Imp: Iron deficiency microcytic anemia in 83 yo female on 2 blood thinners with a reported fairly longstanding history of partially black stools, history of GERD and Gill's esophagus, and on a chronic PPI. She also describes occasional dysphagia/choking while eating. Her stool was Heme negative x 1 here. She denies any other new GI symptoms such as change in BM's or hematochezia. Her last EGD was approx 3 or 4 years ago at [facility]. Her last colonoscopy was > 5 years ago in [place]. Denies ASA/NSAIDs. Diff dx: Chronic GI blood loss from an UGI source such as esophagitis, gastritis, PUD, AVM, or neoplasm. A lower GI source and small bowel source may be another possibility. Rec: EGD on Saturday, 12/01. Full consent obtained for this, including risks of bleeding and perforation. Continue IV PPI, hold blood thinners(last dose was Saturday), follow Hgb and transfuse to maintain Hgb > 8.5-9.0. Consider Cardiology consult for clearance if need be. We did review that if the EGD is negative then I would recommend a colonoscopy, as well as a possible small bowel video capsule study. She does not feel up to doing a colonoscopy prep tomorrow so we can consider that for later in the week pending the EGD results. She was comfortable with this plan. Thanks Time Spent With Patient Time: Total time managing care of this patient today ____ minutes.
[2023-11-30 20:06] LABS: Glucose, Whole Blood 82 mg/dL (60-115)
[2023-11-30] MEDS: ARIPiprazole 10 MG TABLET PO (20:32)
[2023-11-30] MEDS: lamoTRIgine 100 MG TABLET PO (20:32)
--- NOTE | 2023-11-30 20:57 | CONS_ITS ---
DATE OF SERVICE: 11/30/2023 REASON FOR CONSULTATION: Iron-deficiency anemia with reported melena. HISTORY OF PRESENT ILLNESS: This has been obtained from the patient, the medical record, and the nurse. The patient is an 83-year-old female on chronic Eliquis and clopidogrel, who presents with progressive shortness of breath and weakness. She was subsequently found to have a hemoglobin of 7.1 on admission with an MCV of 68. Iron studies were notable for an iron of 11 with iron saturation of 3%. Of note, her stool was Hemoccult negative in the lab. The patient describes a history of reflux and Gill esophagus with the last upper endoscopy about 3 or 4 years ago at [facility]. She is on chronic PPI for that. She does not use any aspirin or NSAIDs, tobacco, nor alcohol. She has noticed a fairly long-standing history of some black stool mixed with otherwise normal-appearing brown stool. She has not had any other change in her bowel habits and has not noticed any hematochezia. She does report that her PPI is working well for reflux, but she has noted some intermittent episodes of dysphagia and/or choking while eating. She denies any abdominal pain, jaundice, nor weight loss. She has not had GI bleeding before. Her last colonoscopy was over 5 years ago and she does report that prior to that, she had been having colonoscopies every 3 to 5 years without any significant findings as far as she can recall. She denies any known family history of colorectal cancer. Since admission, she did receive a unit of blood and feels a little bit better. She still feels weak. MEDICATIONS: At home include clopidogrel, Eliquis, Abilify, Duloxetine, Jardiance, ezetimibe, glipizide, Lamictal, metoprolol, pantoprazole, ranolazine, rosuvastatin, Januvia, and torsemide. Current medications include torsemide, ranolazine, pantoprazole IV, Zofran p.r.n., milk of magnesia p.r.n., metoprolol, melatonin, Lamictal, sliding scale insulin, Lasix, Zetia, duloxetine, Tums, Tessalon, atorvastatin, Abilify, and acetaminophen. PAST MEDICAL HISTORY: Pacemaker, complete hysterectomy, and open heart surgery for atrial septal defect in 1961. She does have coronary artery disease with previously placed stents. She also describes an episode of ischemic colon but did not require surgery for that. She does have diabetes. She has history of COPD, atrial fibrillation, hypertension, CHF, hyperlipidemia, GERD with reported Gill esophagus, and previous CA. SOCIAL HISTORY: She is . She does not smoke nor use any alcohol. REVIEW OF SYSTEMS: CONSTITUTIONAL: She has been feeling weak at home with some shortness of breath. CARDIAC: No chest pain. PULMONARY: No coughing or hemoptysis. GI: As above. URINARY: No dysuria, no hematuria. NEUROLOGIC: No headaches or seizures. PHYSICAL EXAMINATION: GENERAL: The patient is a pleasant, pale, alert, comfortable-appearing female. SKIN: Warm and dry. Anicteric sclerae. NECK: Supple. CARDIAC: Normal S1, S2 with a systolic murmur. ABDOMEN: Soft, nondistended, nontender without mass. EXTREMITIES: Without edema. NEUROLOGICAL: She is alert and oriented and answers questions appropriately. LABORATORY DATA: As above. Stool Hemoccult negative. Hemoglobin up to 8.5 this morning after the unit of blood. Platelets 297,000, white blood cell count 10.3. Normal electrolytes, BUN 16, creatinine 0.9. BUN on admission was 16 as well. Normal LFTs. Chest x-ray describes no acute cardiopulmonary findings. IMPRESSION: Given the patient's clinical history, she clearly is having some chronic gastrointestinal blood loss despite the negative Hemoccult stool specimen given the microcytic anemia and low iron studies while on her 2 blood thinners. She does have some intermittent dysphagia but no other particularly localizing GI symptoms other than some blackish stool mixed with brown stool intermittently. There has been no sign of lower gastrointestinal bleeding. We did review that this most likely represents gastrointestinal bleeding and ideally she should undergo upper endoscopy and colonoscopy. At this point, she does not feel up to going through a colonoscopy and therefore, I recommended we simply proceed with an upper endoscopy on December 01 with monitored anesthesia care. We reviewed that if the upper endoscopy shows a definitive source of anemia, then perhaps we can hold off on a colonoscopy. However, if the upper endoscopy is completely negative, then we could proceed with colonoscopy later in the week when she is feeling more up to having a bowel prep. We also reviewed that she may need a small bowel capsule study at some point as well. In the meantime, her blood thinners will be held. She will have followup laboratories and be transfused as needed to maintain hemoglobin between 8.5 and 9. She will have a Cardiology consult if that is felt to be needed by the hospitalists for adequate clearance prior to the procedures and anesthesia. She will continue on the IV PPI. Full consent was obtained for the endoscopy, including risks of bleeding and perforation. The patient is comfortable with this plan. Thank you for the consultation. MD TAO Flood/RICKEY / [phone]
--- NOTE | 2023-11-30 21:00 | MHC.SHP ---
Pre-Procedural Eval Section A - 24 Hr Update-Section A only Date of Service: 12/02/23 The patient is an INPATIENT: Yes The patient has been examined within 24 hours of the surgical procedure. The History & Physical has been completed within 30 days and I have reviewed it.: Yes Section B - Complete if H&P > 30 days Chief Complaint: Symptomatic anemia Allergies: Allergies Allergy/AdvReac Type Severity Reaction Status Date / Time Penicillins Allergy Anaphylaxis Verified 11/29/23 09:26 vancomycin Allergy Hives Verified 11/29/23 09:26 Plan I have reviewed the history and physical and performed a pertinent physical examination on my patient. No changes have occurred unless specified. Time Spent With Patient Time: Total time managing care of this patient today ____ minutes.
[2023-12-01] VITALS (10 sets, daily range): BP systolic 116–130; BP diastolic 57–62; PULSE 70–81; RESP 17–20; TEMP 36–36.6; O2SAT 94–100
[2023-12-01] MEDS: Pantoprazole Sodium 40 MG/10 ML VIAL IVPUSH ×2 (05:39→15:55)
[2023-12-01 06:56] LABS: MANUAL DIFF FLAG NO
[2023-12-01 07:05] LABS: Basophils Percent Auto 0.5 % (0-2); Eosinophils Absolute Auto 0.1 X10*3/uL (0.0-0.4); Eosinophils Percent Auto 1.6 % (0-4); Hemoglobin 8.1 g/dl (12.0-16.0); Imm Gran Abs Auto 0.03 X10*3/uL (0.00-0.03); Imm Gran Pct Auto 0.3 % (0.0-0.4); Lymphocytes Absolute Auto 1.2 X10*3/uL (1.2-4.9); Lymphocytes Percent Auto 13.4 % (20-40); Mean Corpuscular HGB Conc 27.9 g/dl (31.0-35.0); Mean Corpuscular Hemoglobin 20.1 pg (27.0-33.0); Mean Platelet Volume 10.3 fL (9.4-12.3); Monocytes Absolute Auto 0.9 X10*3/uL (0.1-1.2); Monocytes Percent Auto 9.8 % (2-11); Neutrophils Absolute Auto 6.5 x10*3/uL (2.0-8.3); Neutrophils Percent Auto 74.4 % (45-73); Platelet Count 293 X10*3/uL (160-400); Red Blood Count 4.03 X10*6/uL (4.20-5.50); Red Cell Distribution Width 20.7 % (11.0-16.0); White Blood Count 8.8 X10*3/uL (4.8-10.8)
[2023-12-01 07:12] LABS: Glucose, Whole Blood 64 mg/dL (60-115)
[2023-12-01 07:36] LABS: Glucose, Whole Blood 78 mg/dL (60-115)
[2023-12-01] MEDS: Atorvastatin Calcium 80 MG TABLET PO (07:40)
[2023-12-01] MEDS: DULoxetine HCl 60 MG CAPSULE.DR 120 MG PO (07:40)
[2023-12-01] MEDS: Ranolazine 500 MG TAB.ER.12H PO ×2 (07:40→20:19)
[2023-12-01] MEDS: Metoprolol Succinate ER 50 MG TAB.ER.24H PO (07:40)
[2023-12-01] MEDS: Ezetimibe 10 MG TABLET PO (07:40)
[2023-12-01] MEDS: Torsemide 20 MG TABLET PO (07:41)
--- NOTE | 2023-12-01 09:31 | HO.PM.IMPN ---
Subjective Subjective Date of Service: 12/01/23 Interval History: Complaining of shortness of breath, orthopnea admits to have it chronically, fullness in mid chest, denies hematemesis, no melena, no nausea, no vomiting, no other acute issues overnight. Review of Systems All other system reviewed and negative. Physical Exam Vital Signs: Vital Signs: Last Vital Signs Temp 97.1 F 12/01/23 07:23 Pulse 80 12/01/23 07:23 Resp 20 12/01/23 07:23 BP 128/62 12/01/23 07:23 Pulse Ox 100 12/01/23 07:23 O2 Del Method Nasal Cannula 12/01/23 07:23 O2 Flow Rate 2 12/01/23 07:23 BMI result Body Mass Index 28.0 Const: Other: General resting comfortably in no acute distress. Neck supple ,+ JVD. CVS regular rate rhythm, Respiratory lungs bibasilar crackles, no respiratory distress, no wheeze, no rhonchi. Gastrointestinal abdomen soft, non tender, bowel sounds audible Extremities no edema. Neuro non focal Skin no rash Psych appropriate affect Objective Data Active Medications Acetaminophen (Acetaminophen 325 Mg Tablet) 650 mg PO Q6H PRN PRN Reason: Pain, Mild (Pain Scale 1-3), fever or headache Last Admin: 11/29/23 20:18 Dose: 650 mg Documented By: CHRISTOPHE Aripiprazole (Aripiprazole 10 Mg Tablet) 10 mg PO BEDTIME [facility] Last Admin: 11/30/23 20:32 Dose: 10 mg Documented By: CHRISTOPHE Atorvastatin Calcium (Atorvastatin Calcium 80 Mg Tablet) 80 mg PO DAILY [facility] Last Admin: 12/01/23 07:40 Dose: 80 mg Documented By: LINDA Benzonatate (Benzonatate 100 Mg Capsule) 100 mg PO TID PRN PRN Reason: Cough Calcium Carbonate (Calcium Carbonate 750 Mg Tab.Chew) 750 mg PO Q4H PRN PRN Reason: Heartburn Duloxetine HCl (Duloxetine Hcl 60 Mg Capsule.Dr) 120 mg PO DAILY [facility] Last Admin: 12/01/23 07:40 Dose: 120 mg Documented By: LINDA Ezetimibe (Ezetimibe 10 Mg Tablet) 10 mg PO DAILY [facility] Last Admin: 12/01/23 07:40 Dose: 10 mg Documented By: LINDA Furosemide (Furosemide 40 Mg/4 Ml Vial) 40 mg IVPUSH ONCE ONE; Protocol Stop: 12/01/23 09:31 Glucose (Glucose Gel 15 Gm Gel..Gram.) 15 gm PO Q15M PRN; Protocol PRN Reason: per Hypoglycemia Standing Ord. Dextrose (D10) 250 mls @ 750 mls/hr IV Q15M PRN; Protocol PRN Reason: per Hypoglycemia Standing Ord. Insulin Human Lispro (Insulin Lispro 100 Unit/Ml 3 Ml Vial) 0 unit SUBCUT QIDACHS [facility]; Protocol Last Admin: 12/01/23 07:30 Dose: Not Given Documented By: LINDA Non-Admin Reason: No Insulin Coverage Lamotrigine (Lamotrigine 100 Mg Tablet) 100 mg PO BEDTIME [facility] Last Admin: 11/30/23 20:32 Dose: 100 mg Documented By: CHRISTOPHE Magnesium Hydroxide (Milk Of Magnesia 30 Ml Oral.Susp) 30 ml PO DAILY PRN PRN Reason: Constipation Melatonin (Melatonin 3 Mg Tablet) 6 mg PO BEDTIME PRN PRN Reason: Insomnia Metoprolol Succinate (Metoprolol Succinate Er 50 Mg Tab.Er.24h) 50 mg PO DAILY [facility]; Protocol Last Admin: 12/01/23 07:40 Dose: 50 mg Documented By: LINDA Ondansetron HCl (Ondansetron Hcl 4 Mg/2 Ml Vial) 4 mg IVPUSH Q8H PRN PRN Reason: Nausea and Vomiting Pantoprazole Sodium (Pantoprazole Sodium 40 Mg/10 Ml Vial) 40 mg IVPUSH BID@0630,1630 [facility] Last Admin: 12/01/23 05:39 Dose: 40 mg Documented By: CHRISTOPHE Ranolazine (Ranolazine 500 Mg Tab.Er.12h) 500 mg PO BID [facility] Last Admin: 12/01/23 07:40 Dose: 500 mg Documented By: LINDA Sodium Chloride (0.9 % Sodium Chloride Flush 3 Ml Syringe) 3 ml IVFLUSH QSHIFT [facility] Last Admin: 11/30/23 20:32 Dose: 3 ml Documented By: CHRISTOPHE Torsemide (Torsemide 20 Mg Tablet) 20 mg PO DAILY [facility]; Protocol Last Admin: 12/01/23 07:41 Dose: 20 mg Documented By: HO.BEIT Labs 12/01/23 05:32 11/30/23 05:50 Labs: Laboratory Results - last 24 hr 11/30/23 11/30/23 11/30/23 11:21 16:09 20:01 MCV MCH MCHC RDW Plt Count MPV Immature Gran % (Auto) Neut % (Auto) Lymph % (Auto) Brooks % (Auto) Eos % (Auto) Baso % (Auto) Lymph # (Auto) Brooks # (Auto) Eos # (Auto) Baso # (Auto) Abs Immat Gran (auto) Absolute Neuts (auto) Absolute Nucleated RBC Nucleated RBC % (auto) POC Glucose 103 95 82 12/01/23 12/01/23 12/01/23 05:32 07:07 07:33 MCV 72.0 L MCH 20.1 L MCHC 27.9 L RDW 20.7 H Plt Count 293 MPV 10.3 Immature Gran % (Auto) 0.3 Neut % (Auto) 74.4 H Lymph % (Auto) 13.4 L Brooks % (Auto) 9.8 Eos % (Auto) 1.6 Baso % (Auto) 0.5 Lymph # (Auto) 1.2 Brooks # (Auto) 0.9 Eos # (Auto) 0.1 Baso # (Auto) 0.0 Abs Immat Gran (auto) 0.03 Absolute Neuts (auto) 6.5 Absolute Nucleated RBC 0.000 Nucleated RBC % (auto) 0.0 POC Glucose 64 78 Microbiology Microbiology Results: Microbiology 11/29/23 Unknown Urine Culture - Final Urine clean catch - Clean Catch Midstream Assessment and Plan (1) Iron deficiency anemia: Status: Acute (2) CHF (congestive heart failure): Status: Acute (3) Anemia: Status: Acute Plan 83-year-old female with a PMH significant for?CAD, NSTEMI on Plavix, AFib on Eliquis, unspecified CHF, HTN, [id number] type 2 diabetes, SSS s/p pacemaker in place, HTN, HLD, and GERD who presents to the ED with?SOB, MACIAS, and malaise x2 days. Pt will be admitted to the hospital for treatment and further evaluation of symptomatic anemia likely from UGIB. Symptomatic anemia lightheadedness and dizziness resolved, continued to have shortness of breath H&H 7.1/26.7 treated with 1 unit of packed RBC hematocrit improved to 30.2 today 29. Less this patient maybe midodrine Iron studies consistent with iron deficiency anemia, monitor CBC Likely GIB with underlying history of GERD/Gill's esophagus Continue iv Protonix b.i.d. Hold Plavix and Eliquis Seen by GI they recommend EGD on Friday 12/01 Full liquid diet/NPO after midnight Likely will need to postpone procedure for 12/02 to optimize fluid status Iron deficiency anemia due to GI bleed Acute CHF unspecified exacerbation (echo not available) Noted to have orthopnea, crackles and JVD , had normal examination yesterday Repeat chest x-ray negative for pulmonary edema and effusion BNP elevated, but baseline unknown Will treat with IV Lasix 40 b.i.d., hold home dose of torsemide 20mg Obtain echocardiogram/cardiology consult AFib Hold Eliquis Continue metoprolol CAD/HLD Hold Plavix Continue ezetimibe, statin, ranolazine Wgy-eqepzsd-zonsaajxy type 2 diabetes Blood sugar 113, on clear liquid diet, hold glipizide, and Januvia Sliding-scale insulin Diabetic diet Mood disorder Continue duloxetine, and lamotrigine DNR/DNI, verified with pt and family at bedside DVT Prophylaxis: Pneumatic compression due to anemia Pt will require continued inpatient hospitalization for treatment of?symptomatic anemia concerning for GIB will require close CBC monitoring and expert consultation for further workup including upper endoscopy and colonoscopy. Also require further testing and treatment for acute CHF exacerbation. Quality Stroke Does the patient have a stroke diagnosis?: No VTE Prior VTE?: No VTE Risk Level:: Medical - moderate - high VTE Device Contraindication: Treatment Not Indicated VTE Drug Contraindication: N/A - Med Ordered
--- NOTE | 2023-12-01 09:33 | PC.NURSE ---
Patient c/o SOB,feels like she can not get enough air,Sat 100% on 2 L of oxygen,Dr. Rosa made aware <CxR pending,Echo pending,IV lasix ordered
[2023-12-01] MEDS: Furosemide 40 MG/4 ML VIAL IVPUSH ×2 (09:59→18:06)
[2023-12-01] MEDS: 0.9 % Sodium Chloride Flush 3 ML SYRINGE IVFLUSH ×2 (10:06→15:41)
[2023-12-01 11:14] LABS: Glucose, Whole Blood 236 mg/dL (60-115)
[2023-12-01] MEDS: Insulin Lispro 100 UNIT/ML 3 ML VIAL SUBCUT (11:24)
[2023-12-01] MEDS: Spironolactone 25 MG TABLET PO (15:54)
[2023-12-01 16:16] LABS: Glucose, Whole Blood 89 mg/dL (60-115)
[2023-12-01 20:13] LABS: Glucose, Whole Blood 130 mg/dL (60-115)
[2023-12-01] MEDS: ARIPiprazole 10 MG TABLET PO (20:18)
[2023-12-01] MEDS: Acetaminophen 325 MG TABLET 650 MG PO (20:19)
[2023-12-01] MEDS: lamoTRIgine 100 MG TABLET PO (20:19)
[2023-12-02] VITALS (9 sets, daily range): BP systolic 107–134; BP diastolic 55–63; PULSE 71–96; RESP 16–20; TEMP 36–36.7; O2SAT 94–99; BMI 28.0
[2023-12-02] MEDS: Pantoprazole Sodium 40 MG/10 ML VIAL IVPUSH (05:35)
[2023-12-02 06:53] LABS: MANUAL DIFF FLAG NO
--- NOTE | 2023-12-02 07:00 | CA_ITS ---
Transthoracic Echocardiogram Patient (Last, First, Middle): Brigitte Gregory J Gender: Female Date of : 1940 Age: 83 Procedure Date: 12/02/2023 Procedure Type: Transthoracic Echocardiogram Location: S3E Height: 167.64 cm Weight: 78.47 kg BSA: 1.88 m2 Heart Rate: 77 bpm BP: 107 / 55 mmHg Silk Finisher: SB Referring MD: Omer Rosa MD Symptoms: soh/cad Study Quality: Adequate ECG Rhythm: Ventriculary paced rhythm Conclusions: - The left ventricular systolic function is hyperdynamic. The visually estimated ejection fraction is >70%. - Slight intraventricular and LVOT gradient. Peak resting LVOT gradient 18 mm Hg; no significant increase with Valsalva. - There is mild aortic valve regurgitation. - There is mild tricuspid valve regurgitation. Findings Left Ventricle Normal left ventricular cavity size. The left ventricular systolic function is hyperdynamic. The visually estimated ejection fraction is >70%. There is no evidence of regional wall motion abnormalities. There is no dynamic left ventricular outflow tract obstruction. Diastolic function is indeterminate on the basis of available data. There is mild septal asymmetric hypertrophy. Slight intraventricular and LVOT gradient. Peak resting LVOT gradient 18 mm Hg; no significant increase with Valsalva. Right Ventricle Normal right ventricular cavity size. There is low normal right ventricular systolic function. Atria Both atria are normal in size. Aortic Valve There is a normal trileaflet aortic valve. There is mild calcification of the aortic valve. There is no aortic valve stenosis. There is mild aortic valve regurgitation. Mitral Valve The mitral valve appears normal. There is mild mitral annular calcification. There is mild mitral valve regurgitation. There is no mitral valve stenosis. Pulmonic Valve The pulmonic valve is likely normal. Tricuspid Valve Normal tricuspid valve structure. There is mild tricuspid valve regurgitation. Borderline RVSP. Great Vessels The asc aorta is normal in size. Venous The inferior vena cava is normal in size and collapses greater than 50% with inspiration. Pericardium/Pleural There is no evidence of pericardial effusion. Prior Study Comparison No prior study available for comparison. Measurements 2D Linear Measurements IVSd: 1.12 0.6-0.9/0.6-1.0 cm LVIDd: 4.36 3.9-5.3/4.2-5.9 cm LVIDd Index: 2.32 2.4-3.2/2.2-3.1 cm/m2 LVIDs: 2.80 2.0-3.6 cm LVPWd: 0.77 0.7-1.1 cm LA Diam: 4.50 2.7-3.8/3.0-4.0 cm LAIDs Index: 2.39 1.5-2.3 cm/m2 LV Mass: 167.10 67-162/88-224 g LV Mass Index: 88.88 43-95/49-115 g/m2 LVOT Diam: 2.00 3.0+(-)1.3 cm 2D Systolic Function EF 4C: 66.80 >55% EF 2C: 71.80 >55% EF BiP: 69.60 >55% Mitral Valve MV Pk E: 1.42 MV Decel Time: 187.00 E'Lateral: 13.00 E'Medial: 8.63 E/E' Med: 16.50 E/E' Lat: 10.90 Aortic Valve AoV Pk Rivera: 1.91 AoV Mn Rivera: 1.36 AoV VTI: 0.36 AoV Pk Grad: 15.00 Aov Mn Grad: 8.00 MOO Cont.VTI: 3.17 LVOT LVOT Pk Rivera: 1.84 LVOT Mn Rivera: 1.34 LVOT VTI: 0.36 LVOT Pk Grad: 14.00 LVOT Mn Grad: 8.00 LVOT Diam: 2.00 LVOT Area: 3.14 Diastolic Function MV Pk E: 1.42 E'Medial: 8.63 E/E' Med: 16.50 E' Laterial: 13.00 E/E' Lat: 10.90 Right Ventricle TAPSE (mm): 15.90 TVS' Rivera: 10.20 Tricuspid Valve TR Pk Rivera: 2.82 TR Pk Grad: 32.00 RA Press: 3.00 RVSP: 35.00 Great Vessels Aorta Sinus of Valsalva: 2.90 2.0-3.5 cm Ao Asc: 3.40 2.1-3.4 cm Pulmonary Valve PV Pk Rivera: 1.31 Peak PV Grad: 7.00 Updated in Other Vendor System with Status of Final Bruce Sharpe MD electronically signed on 12/02/2023 11:43:16 AM with status of Final
[2023-12-02 07:23] LABS: Basophils Percent Auto 0.6 % (0-2); Eosinophils Absolute Auto 0.2 X10*3/uL (0.0-0.4); Eosinophils Percent Auto 3.5 % (0-4); Hematocrit 34.5 % (37.0-47.0); Hemoglobin 10.2 g/dl (12.0-16.0); Imm Gran Abs Auto 0.02 X10*3/uL (0.00-0.03); Imm Gran Pct Auto 0.3 % (0.0-0.4); Lymphocytes Absolute Auto 1.2 X10*3/uL (1.2-4.9); Lymphocytes Percent Auto 19.5 % (20-40); Mean Corpuscular HGB Conc 29.6 g/dl (31.0-35.0); Mean Corpuscular Hemoglobin 21.3 pg (27.0-33.0); Mean Corpuscular Volume 71.9 fL (80.0-98.0); Mean Platelet Volume 10.1 fL (9.4-12.3); Monocytes Absolute Auto 0.8 X10*3/uL (0.1-1.2); Monocytes Percent Auto 12.1 % (2-11); Platelet Count 307 X10*3/uL (160-400); Red Cell Distribution Width 22.2 % (11.0-16.0); White Blood Count 6.2 X10*3/uL (4.8-10.8)
[2023-12-02 07:32] LABS: B Type Natriuretic Peptide 201 pg/mL (<100)
[2023-12-02 07:35] LABS: Anion Gap 11 (12-20); Blood Urea Nitrogen 16 mg/dL (9-16); Calcium 9.9 mg/dL (8.4-10.2); Chloride 94 mmol/L (96-108); Creatinine Clr Calc Pharmacy 51.3; Estimated Glomerular Filt Rate > 60; Glucose Random 124 mg/dL (60-115); Potassium 3.8 mmol/L (3.3-5.1); Sodium 142 mmol/L (135-145)
[2023-12-02 07:39] LABS: Glucose, Whole Blood 122 mg/dL (60-115)
[2023-12-02 07:50] LABS: Carbon Dioxide 41 mmol/L (22-29)
[2023-12-02 08:12] LABS: Magnesium 2.1 mg/dL (1.6-2.6)
[2023-12-02] MEDS: Atorvastatin Calcium 80 MG TABLET PO (09:22)
[2023-12-02] MEDS: Furosemide 40 MG/4 ML VIAL IVPUSH ×2 (09:22→17:49)
[2023-12-02] MEDS: DULoxetine HCl 60 MG CAPSULE.DR 120 MG PO (09:22)
[2023-12-02] MEDS: Ezetimibe 10 MG TABLET PO (09:22)
[2023-12-02] MEDS: Ranolazine 500 MG TAB.ER.12H PO ×2 (09:22→20:47)
[2023-12-02] MEDS: Metoprolol Succinate ER 50 MG TAB.ER.24H PO (09:22)
[2023-12-02] MEDS: 0.9 % Sodium Chloride Flush 3 ML SYRINGE IVFLUSH ×3 (09:23→20:51)
--- NOTE | 2023-12-02 09:53 | P.CONCA_ITS ---
History of Present Illness History of Present Illness Date of Service: 12/02/23 Chief complaint: Symptomatic anemia Narrative: This is a cardiology consultation regarding preoperative risk stratification for endoscopy. Patient follows up at [facility] For cardiology. Many comorbidities including coronary disease, paroxysmal atrial fibrillation, congestive heart failure, diabetes, pacemaker among others. She is on both Plavix as well as Eliquis. Recently had COVID booster shot and then complaining of shortness of breath and unsteadiness and then she was admitted. Found to be anemic and plan for EGD. We have been asked to see her from cardiac. Patient states that she is chronically short of breath and feels just about the same as before. She states she can only walk a few yd or so before she feels short of breath. Uncertain etiology. It seems she might also have some pulmonary issues, possibly COPD. She is not on oxygen at baseline but she states she is remarkably better after getting Supplemental oxygen here. Otherwise, she states this nothing new overall. Review of Systems 2 Review of Systems: Yes all other systems are reviewed and are negative Constitutional: Constitutional: Reports as per HPI and Reports no additional constitutional complaints Eyes: Eyes: Reports as per HPI and Denies no additional eye complaints ENT: Denies system reviewed and no additional complaints, except as documented and Reports as per HPI Cardiovascular: Cardiovascular: Reports as per HPI, Reports no additional cardiovascular complaints, Denies acrocyanosis, Denies cool extremities, Denies chest pain, Denies leg edema, Denies lightheadedness, Denies palpitations and Reports dyspnea Respiratory: Respiratory: Reports as per HPI, Denies no additional respiratory complaints and Reports dyspnea Gastrointestinal: Gastrointestinal: Reports as per HPI and Denies no additional gastrointestinal complaints Genitourinary: Genitourinary: Reports as per HPI Musculoskeletal: Musculoskeletal: Reports no additional musculoskeletal complaints and Reports as per HPI Integumentary/Breasts: Skin/Breast: Reports system reviewed and no additional complaints, except as docu Neurologic: Reports system reviewed and no additional complaints, except as documented and Reports as per HPI Psychiatric: Psychiatric: Reports no additional psychiatric complaints and Reports as per HPI Endocrine: Endocrine: Reports no additional endocrine complaints, Reports as per HPI and Denies palpitations Hematologic/Lymphatic: Hematologic/Lymphatic: Reports no additional hematologic/lymphatic complaints and Reports as per HPI Allergic/Immunologic: Allergic/Immunologic: Reports no additional allergic/immunologic complaints and Reports as per HPI [facility] Past Medical History Medical History Sick sinus syndrome Pacemaker Diabetes Hyperlipidemia HTN (hypertension) Pulmonary embolus ASD (atrial septal defect) CAD (coronary artery disease) Family History Pertinent family history: No pertinent family history Social History Social History Household Members: Spouse Housing: Apartment Housing Other:: four stairs up to apartment Do you presently have visiting nurse or other home services: Yes ([facility]) Patient Tobacco Use Status: Never used Tobacco Smoked in Last 30 Days: No Use of substances other than those prescribed or required for medical reasons: No Currently Displaying Signs/Symptoms of Drug Intoxication Withdrawal: No Have you been hit, kicked, punched, or otherwise hurt by someone within the past year? If so, by whom?: No Do you feel safe in your current relationship?: Yes Is there a partner from a previous relationship who is making you feel unsafe now?: No Are you made to feel afraid or neglected: No Advance Directives: Yes Advance Directives Information Provided: Yes Advance Directives on File: No Advance Directives Date on File: 11/29/23 Do you have a plan to hurt others: No Plan Recently lost weight without trying: No Eating poorly because of decreased appetite: No Nutrition Risks: No Nutritional Risk Patient : No : No Poor oral hygiene: No service: No Meds Allergies Allergy/AdvReac Type Severity Reaction Status Date / Time Penicillins Allergy Anaphylaxis Verified 11/29/23 09:26 vancomycin Allergy Hives Verified 11/29/23 09:26 Active Medications: Current Medications Acetaminophen (Acetaminophen 325 Mg Tablet) 650 mg PO Q6H PRN PRN Reason: Pain, Mild (Pain Scale 1-3), fever or headache Last Admin: 12/01/23 20:19 Dose: 650 mg Aripiprazole (Aripiprazole 10 Mg Tablet) 10 mg PO BEDTIME [facility] Last Admin: 12/01/23 20:18 Dose: 10 mg Atorvastatin Calcium (Atorvastatin Calcium 80 Mg Tablet) 80 mg PO DAILY [facility] Last Admin: 12/02/23 09:22 Dose: 80 mg Benzonatate (Benzonatate 100 Mg Capsule) 100 mg PO TID PRN PRN Reason: Cough Calcium Carbonate (Calcium Carbonate 750 Mg Tab.Chew) 750 mg PO Q4H PRN PRN Reason: Heartburn Duloxetine HCl (Duloxetine Hcl 60 Mg Capsule.Dr) 120 mg PO DAILY [facility] Last Admin: 12/02/23 09:22 Dose: 120 mg Ezetimibe (Ezetimibe 10 Mg Tablet) 10 mg PO DAILY [facility] Last Admin: 12/02/23 09:22 Dose: 10 mg Furosemide (Furosemide 40 Mg/4 Ml Vial) 40 mg IVPUSH BID@0900,1800 [facility]; Protocol Last Admin: 12/02/23 09:22 Dose: 40 mg Glucose (Glucose Gel 15 Gm Gel..Gram.) 15 gm PO Q15M PRN; Protocol PRN Reason: per Hypoglycemia Standing Ord. Dextrose (D10) 250 mls @ 750 mls/hr IV Q15M PRN; Protocol PRN Reason: per Hypoglycemia Standing Ord. Insulin Human Lispro (Insulin Lispro 100 Unit/Ml 3 Ml Vial) 0 unit SUBCUT QIDACHS [facility]; Protocol Last Admin: 12/02/23 07:41 Dose: Not Given Lamotrigine (Lamotrigine 100 Mg Tablet) 100 mg PO BEDTIME [facility] Last Admin: 12/01/23 20:19 Dose: 100 mg Magnesium Hydroxide (Milk Of Magnesia 30 Ml Oral.Susp) 30 ml PO DAILY PRN PRN Reason: Constipation Melatonin (Melatonin 3 Mg Tablet) 6 mg PO BEDTIME PRN PRN Reason: Insomnia Metoprolol Succinate (Metoprolol Succinate Er 50 Mg Tab.Er.24h) 50 mg PO DAILY [facility]; Protocol Last Admin: 12/02/23 09:22 Dose: 50 mg Ondansetron HCl (Ondansetron Hcl 4 Mg/2 Ml Vial) 4 mg IVPUSH Q8H PRN PRN Reason: Nausea and Vomiting Pantoprazole Sodium (Pantoprazole Sodium 40 Mg/10 Ml Vial) 40 mg IVPUSH BID@0630,1630 [facility] Last Admin: 12/02/23 05:35 Dose: 40 mg Ranolazine (Ranolazine 500 Mg Tab.Er.12h) 500 mg PO BID [facility] Last Admin: 12/02/23 09:22 Dose: 500 mg Sodium Chloride (0.9 % Sodium Chloride Flush 3 Ml Syringe) 3 ml IVFLUSH QSHIFT [facility] Last Admin: 12/02/23 09:23 Dose: 3 ml Home Medications ?Medication ?Instructions ?Recorded ?Confirmed ?Last Taken ?Type apixaban 5 mg tablet (Eliquis) 5 mg PO BID 11/29/23 11/29/23 11/29/23 History aripiprazole 10 mg tablet 10 mg PO BEDTIME 11/29/23 11/29/23 11/28/23 History clopidogrel 75 mg tablet 75 mg PO DAILY 11/29/23 11/29/23 11/29/23 History duloxetine 60 mg capsule,delayed 120 mg PO DAILY 11/29/23 11/29/23 11/29/23 History release empagliflozin 25 mg tablet 25 mg PO DAILY 11/29/23 11/29/23 11/29/23 History (Jardiance) ezetimibe 10 mg tablet 10 mg PO DAILY 11/29/23 11/29/23 11/29/23 History glipizide 5 mg tablet, extended 5 mg PO DAILY 11/29/23 11/29/23 11/29/23 History release 24 hr lamotrigine 100 mg tablet 100 mg PO BEDTIME 11/29/23 11/29/23 11/28/23 History metoprolol succinate 100 mg 50 mg PO DAILY 11/29/23 11/29/23 11/29/23 History tablet,extended release 24 hr pantoprazole 40 mg tablet,delayed 40 mg PO BID 11/29/23 11/29/23 11/29/23 History release ranolazine 500 mg tablet,extended 500 mg PO BID 11/29/23 11/29/23 11/29/23 History release,12 hr rosuvastatin 40 mg tablet 40 mg PO DAILY 11/29/23 11/29/23 11/29/23 History sitagliptin phosphate 100 mg 100 mg PO DAILY 11/29/23 11/29/23 11/29/23 History tablet (Januvia) torsemide 10 mg tablet 20 mg PO DAILY 11/29/23 11/29/23 11/29/23 History Physical Exam 2 Vital Signs: Vital Signs: Last Vital Signs Temp 98.0 F 12/02/23 07:20 Pulse 74 12/02/23 07:20 Resp 16 12/02/23 07:20 BP 134/63 12/02/23 07:20 Pulse Ox 95 12/02/23 07:20 O2 Del Method Nasal Cannula 12/02/23 07:20 O2 Flow Rate 1 12/02/23 07:20 BMI result Body Mass Index 28.0 Const: General: comfortable and no acute distress O rientation/consciousness: patient oriented x3 HEENT: Other: Unremarkable Head: Yes normal to inspection Neck: Neck: Yes normal visual inspection Chest: Chest palpation & inspection: normal inspection of the chest Resp: Other: Few scattered crackles Cardio: Palpation: normal PMI Heart sounds: S1 normal heart sound present, S2 normal heart sound present, no gallops, Murmur heart sound present systolic II/ and at the right sternal border and no rubs GI: Palpation (GI): Soft to palpation Back/Spine/Pelvis: Other: unremarkable Skin: General skin exam: no rashes or lesions noted Neuro: General: patient oriented x3 Extrem: General: Yes normal to inspection Psych: Mental Status: mental status grossly normal Objective Labs and Meds 12/02/23 05:15 12/02/23 05:15 Lab results: Laboratory Results - last 24 hr 11/29/23 12/01/23 12/01/23 10:30 11:10 16:09 WBC RBC Hgb Hct MCV MCH MCHC RDW Plt Count MPV Immature Gran % (Auto) Neut % (Auto) Lymph % (Auto) Day % (Auto) Eos % (Auto) Baso % (Auto) Lymph # (Auto) Day # (Auto) Eos # (Auto) Baso # (Auto) Abs Immat Gran (auto) Absolute Neuts (auto) Absolute Nucleated RBC Nucleated RBC % (auto) Sodium Potassium Chloride Carbon Dioxide Anion Gap BUN Creatinine Estim Creat Clear Calc Estimated GFR POC Glucose 236 H 89 Random Glucose Calcium Magnesium B-Natriuretic Peptide Blood Type A Positive Antibody Screen NEGATIVE Crossmatch See Detail 12/01/23 12/02/23 12/02/23 20:08 05:14 05:15 WBC 6.2 RBC 4.80 Hgb 10.2 L D Hct 34.5 L MCV 71.9 L MCH 21.3 L MCHC 29.6 L RDW 22.2 H Plt Count 307 MPV 10.1 Immature Gran % (Auto) 0.3 Neut % (Auto) 64.0 Lymph % (Auto) 19.5 L Day % (Auto) 12.1 H Eos % (Auto) 3.5 Baso % (Auto) 0.6 Lymph # (Auto) 1.2 Day # (Auto) 0.8 Eos # (Auto) 0.2 Baso # (Auto) 0.0 Abs Immat Gran (auto) 0.02 Absolute Neuts (auto) 4.0 Absolute Nucleated RBC 0.000 Nucleated RBC % (auto) 0.0 Sodium 142 Potassium 3.8 Chloride 94 L Carbon Dioxide 41 H* Anion Gap 11 L BUN 16 Creatinine 0.88 Estim Creat Clear Calc 51.3 Estimated GFR > 60 POC Glucose 130 H Random Glucose 124 H Calcium 9.9 Magnesium 2.1 B-Natriuretic Peptide 201 H Blood Type Antibody Screen Crossmatch 12/02/23 07:23 WBC RBC Hgb Hct MCV MCH MCHC RDW Plt Count MPV Immature Gran % (Auto) Neut % (Auto) Lymph % (Auto) Day % (Auto) Eos % (Auto) Baso % (Auto) Lymph # (Auto) Day # (Auto) Eos # (Auto) Baso # (Auto) Abs Immat Gran (auto) Absolute Neuts (auto) Absolute Nucleated RBC Nucleated RBC % (auto) Sodium Potassium Chloride Carbon Dioxide Anion Gap BUN Creatinine Estim Creat Clear Calc Estimated GFR POC Glucose 122 H Random Glucose Calcium Magnesium B-Natriuretic Peptide Blood Type Antibody Screen Crossmatch ECG Interpretation: EKG with atrial paced rhythm at 70/Min; bifascicular block pattern. Imaging Radiologist's impression: Impressions Chest X-Ray 12/01/23 09:38 IMPRESSION: No acute cardiopulmonary findings. Electronically signed by: Naman James MD 12/01/2023 09:51 AM EDT RP Assessment and Plan (1) Preoperative cardiovascular examination: Status: Acute (2) Iron deficiency anemia: Status: Acute (3) CHF (congestive heart failure): Qualifiers: Heart failure chronicity: acute on chronic Heart failure type: u nspecified Qualified Code(s): I50.9 - Heart failure, unspecified Status: Acute Plan Cardiac catheterization data reviewed from 03/2023. Left main with minimal irregularities. Patent LAD stent. First diagonal, ostial 65% stenosis. Circumflex with minimal irregularities. PDA with 55% proximal stenosis. LVEDP was slightly elevated at 21 mm Hg. In the current labs-admission hemoglobin 7.1. Currently improved to 10.2 post transfusions. MCV is quite low suggestive of iron deficiency. Elevated CO2 and low chloride levels. High sensitivity troponin within range. Cardiac BNP was elevated at 726 upon arrival but improved to 101. Overall, known coronary disease, unknown LV function, possible COPD with some suggestion of CO2 retention on labs, anemia. Likely multifactorial etiology for shortness of breath. We will get an echocardiogram. Unless any overt abnormalities of concern on the echocardiogram, she will be able to proceed with endoscopy. She is on empiric diuretics for presumed heart failure components. That could have been in fact precipitated by the anemia. Discussed with family who are in agreement. Will request OP records. When cleared for anticoag, just use Eliquis only. No Plavix. Procedures Date of Service Date of Service: 12/02/23
[2023-12-02 11:01] LABS: Venous Blood Gas Refer to POC result
[2023-12-02 11:02] LABS: VBG Base Excess 18.8 mmol/L; VBG HCO3 46 mmol/L (22-26); VBG pCO2 63 mmHg; VBG pH 7.46 (7.32-7.43); VBG pO2 54 mmHg
[2023-12-02 11:17] LABS: Glucose, Whole Blood 116 mg/dL (60-115)
[2023-12-02 13:29] LABS: Glucose, Whole Blood 131 mg/dL (60-115)
[2023-12-02] MEDS: Lactated Ringers 1,000 ML 100 ML IVCONT (13:33)
--- NOTE | 2023-12-02 13:37 | HO.PM.IMPN ---
Subjective Subjective Date of Service: 12/02/23 Interval History: dyspnea improved has COPD/asthma No hematemesis, hematochezia, or melena. Review of Systems Review of Systems: Yes all other systems are reviewed and are negative Physical Exam Vital Signs: Vital Signs: Last Vital Signs Temp 97.7 F 12/02/23 13:09 Pulse 76 12/02/23 13:09 Resp 18 12/02/23 13:09 BP 126/62 12/02/23 13:09 Pulse Ox 95 12/02/23 13:09 O2 Del Method Nasal Cannula 12/02/23 13:09 O2 Flow Rate 1 12/02/23 13:09 BMI result Body Mass Index 28.0 Gen: in no acute distress HEENT: sclera anicteric, moist mucus membranes Neck: supple Lungs: bibasilar inspiratory crackles Heart: regular rate and rhythm, no murmurs Abd: soft, non-tender, non-distended Ext: no edema Skin: warm/well-perfused Neuro: alert and oriented x3, no focal findings Psych: appropriate affect Objective Data Active Medications Acetaminophen (Acetaminophen 325 Mg Tablet) 650 mg PO Q6H PRN PRN Reason: Pain, Mild (Pain Scale 1-3), fever or headache Last Admin: 12/01/23 20:19 Dose: 650 mg Documented By: CHRISTOPHE Acetazolamide (Acetazolamide 250 Mg Tablet) 250 mg PO BID [facility] Stop: 12/02/23 21:01 Last Admin: 12/02/23 13:03 Dose: Not Given Documented By: CHIKI Non-Admin Reason: NPO Aripiprazole (Aripiprazole 10 Mg Tablet) 10 mg PO BEDTIME [facility] Last Admin: 12/01/23 20:18 Dose: 10 mg Documented By: CHRISTOPHE Atorvastatin Calcium (Atorvastatin Calcium 80 Mg Tablet) 80 mg PO DAILY [facility] Last Admin: 12/02/23 09:22 Dose: 80 mg Documented By: CHIKI Benzonatate (Benzonatate 100 Mg Capsule) 100 mg PO TID PRN PRN Reason: Cough Calcium Carbonate (Calcium Carbonate 750 Mg Tab.Chew) 750 mg PO Q4H PRN PRN Reason: Heartburn Duloxetine HCl (Duloxetine Hcl 60 Mg Capsule.) 120 mg PO DAILY [facility] Last Admin: 12/02/23 09:22 Dose: 120 mg Documented By: CHIKI Ezetimibe (Ezetimibe 10 Mg Tablet) 10 mg PO DAILY [facility] Last Admin: 12/02/23 09:22 Dose: 10 mg Documented By: CHIKI Furosemide (Furosemide 40 Mg/4 Ml Vial) 40 mg IVPUSH BID@0900,1800 [facility]; Protocol Last Admin: 12/02/23 09:22 Dose: 40 mg Documented By: CHIKI Glucose (Glucose Gel 15 Gm Gel..Gram.) 15 gm PO Q15M PRN; Protocol PRN Reason: per Hypoglycemia Standing Ord. Dextrose (D10) 250 mls @ 750 mls/hr IV Q15M PRN; Protocol PRN Reason: per Hypoglycemia Standing Ord. Lactated Ringer's (Lr) 1,000 mls @ 100 mls/hr IVCONT .Q10H [facility] Last Admin: 12/02/23 13:33 Dose: 100 mls/hr Documented By: GIBSON Insulin Human Lispro (Insulin Lispro 100 Unit/Ml 3 Ml Vial) 0 unit SUBCUT QIDACHS [facility]; Protocol Last Admin: 12/02/23 11:39 Dose: Not Given Documented By: CHIKI Non-Admin Reason: No Insulin Coverage Lamotrigine (Lamotrigine 100 Mg Tablet) 100 mg PO BEDTIME [facility] Last Admin: 12/01/23 20:19 Dose: 100 mg Documented By: CHRISTOPHE Magnesium Hydroxide (Milk Of Magnesia 30 Ml Oral.Susp) 30 ml PO DAILY PRN PRN Reason: Constipation Melatonin (Melatonin 3 Mg Tablet) 6 mg PO BEDTIME PRN PRN Reason: Insomnia Metoprolol Succinate (Metoprolol Succinate Er 50 Mg Tab.Er.24h) 50 mg PO DAILY [facility]; Protocol Last Admin: 12/02/23 09:22 Dose: 50 mg Documented By: CHIKI Ondansetron HCl (Ondansetron Hcl 4 Mg/2 Ml Vial) 4 mg IVPUSH Q8H PRN PRN Reason: Nausea and Vomiting Pantoprazole Sodium (Pantoprazole Sodium 40 Mg/10 Ml Vial) 40 mg IVPUSH BID@0630,1630 [facility] Last Admin: 12/02/23 05:35 Dose: 40 mg Documented By: CHRISTOPHE Ranolazine (Ranolazine 500 Mg Tab.Er.12h) 500 mg PO BID [facility] Last Admin: 12/02/23 09:22 Dose: 500 mg Documented By: CHIKI Sodium Chloride (0.9 % Sodium Chloride Flush 3 Ml Syringe) 3 ml IVFLUSH QSHIFT [facility] Last Admin: 12/02/23 09:23 Dose: 3 ml Documented By: CHIKI Labs 12/02/23 05:15 12/02/23 05:15 Labs: Laboratory Results - last 24 hr 11/29/23 12/01/23 12/01/23 10:30 16:09 20:08 MCV MCH MCHC RDW Plt Count MPV Immature Gran % (Auto) Neut % (Auto) Lymph % (Auto) Allen % (Auto) Eos % (Auto) Baso % (Auto) Lymph # (Auto) Allen # (Auto) Eos # (Auto) Baso # (Auto) Abs Immat Gran (auto) Absolute Neuts (auto) Absolute Nucleated RBC Nucleated RBC % (auto) VBG pH VBG pCO2 VBG pO2 VBG HCO3 VBG O2 Saturation VBG Base Excess Anion Gap Estim Creat Clear Calc Estimated GFR POC Glucose 89 130 H Random Glucose Calcium Magnesium B-Natriuretic Peptide Blood Type A Positive Antibody Screen NEGATIVE Crossmatch See Detail 12/02/23 12/02/23 12/02/23 05:14 05:15 07:23 MCV 71.9 L MCH 21.3 L MCHC 29.6 L RDW 22.2 H Plt Count 307 MPV 10.1 Immature Gran % (Auto) 0.3 Neut % (Auto) 64.0 Lymph % (Auto) 19.5 L Allen % (Auto) 12.1 H Eos % (Auto) 3.5 Baso % (Auto) 0.6 Lymph # (Auto) 1.2 Allen # (Auto) 0.8 Eos # (Auto) 0.2 Baso # (Auto) 0.0 Abs Immat Gran (auto) 0.02 Absolute Neuts (auto) 4.0 Absolute Nucleated RBC 0.000 Nucleated RBC % (auto) 0.0 VBG pH VBG pCO2 VBG pO2 VBG HCO3 VBG O2 Saturation VBG Base Excess Anion Gap 11 L Estim Creat Clear Calc 51.3 Estimated GFR > 60 POC Glucose 122 H Random Glucose 124 H Calcium 9.9 Magnesium 2.1 B-Natriuretic Peptide 201 H Blood Type Antibody Screen Crossmatch 12/02/23 12/02/23 12/02/23 10:48 10:56 11:02 MCV MCH MCHC RDW Plt Count MPV Immature Gran % (Auto) Neut % (Auto) Lymph % (Auto) Allen % (Auto) Eos % (Auto) Baso % (Auto) Lymph # (Auto) Allen # (Auto) Eos # (Auto) Baso # (Auto) Abs Immat Gran (auto) Absolute Neuts (auto) Absolute Nucleated RBC Nucleated RBC % (auto) VBG pH 7.46 H VBG pCO2 63 VBG pO2 54 VBG HCO3 46 H VBG O2 Saturation 85.0 VBG Base Excess 18.8 Anion Gap Estim Creat Clear Calc Estimated GFR POC Glucose 116 H Random Glucose Calcium Magnesium B-Natriuretic Peptide Blood Type A Positive Antibody Screen NEGATIVE Crossmatch 12/02/23 13:22 MCV MCH MCHC RDW Plt Count MPV Immature Gran % (Auto) Neut % (Auto) Lymph % (Auto) Allen % (Auto) Eos % (Auto) Baso % (Auto) Lymph # (Auto) Allen # (Auto) Eos # (Auto) Baso # (Auto) Abs Immat Gran (auto) Absolute Neuts (auto) Absolute Nucleated RBC Nucleated RBC % (auto) VBG pH VBG pCO2 VBG pO2 VBG HCO3 VBG O2 Saturation VBG Base Excess Anion Gap Estim Creat Clear Calc Estimated GFR POC Glucose 131 H Random Glucose Calcium Magnesium B-Natriuretic Peptide Blood Type Antibody Screen Crossmatch Assessment and Plan (1) Iron deficiency anemia: Status: Acute (2) CHF (congestive heart failure): Status: Acute (3) Anemia: Status: Acute Plan d4 83yo F with CAD s/p PCI on clopidogrel, AF on apixaban, HFpEF, HTN, DM2, SSS s/p PPM, HTN, HLD, GERD presenting with 2d of exertional dyspnea, found to have severe anemia likely from UGIB chronic blood loss/iron deficiency anemia due to likely UGIB - improved after 2u pRBCs treanfused - underlying hx of GERD + Gill's esophagus. Continue IV PPI. - hold clopidogrel + apixaban - GI consulted, plan EGD today - replete Fe when taking POs acute/chronic HFpEF - continue IV furosemide; home torsemide 20 mg daily at home - negative 2330 mL over last 24h; monitor lytes + I/O + BNP - TTE 12/01: - The left ventricular systolic function is hyperdynamic. The visually estimated ejection fraction is >70%. - Slight intraventricular and LVOT gradient. Peak resting LVOT gradient 18 mm Hg; no significant increase with Valsalva. - There is mild aortic valve regurgitation. - There is mild tricuspid valve regurgitation. - Cardiology consulted; no further preoperative workup needed - continue metoprolol succinate AHRF due to CHF vs COPD/asthma - home O2 eval prior to discharge metabolic alkalosis likely due to chronic respiratory acidosis - acetazolamide, repeat BMP + VBG in AM AF - hold apixaban; continue metoprolol succinate CAD - hold clopidogrel; continue ranolazine, ezetimibite, atorvastatin - per Cardiology, when cleared for anticoagulation, just apixaban, not clopidogrel DM2 - luisito-dose lispro mood disorder - duloxetine + lamotrigine + aripiprazole VTE ppx - SCDs; no heparin due to GIB dispo - plan home with VNA In my clinical judgment, the patient requires continued inpatient hospitalization for the following reasons: inpt endoscopy Total time managing care of this patient today: 45 minutes. Quality Stroke Does the patient have a stroke diagnosis?: No VTE Prior VTE?: No VTE Risk Level:: Medical - moderate - high VTE Device Contraindication: Treatment Not Indicated VTE Drug Contraindication: N/A - Med Ordered
--- NOTE | 2023-12-02 14:10 | P.CONAN_ITS ---
HPI - Anesthesia Eval Consult details Narrative: 83 yo F presenting for EGD. Admitted for possible UGIB. Pacemaker. Anesthesia Pre-Procedure Meds Is the patient on any of the following meds?: GLP1/DPP4 and SGLT2 Inhib PMFSH Active Problems Active Problems: All Active Problems Preoperative cardiovascular examination (Acute) Iron deficiency anemia (Acute) Malaise (Acute) Anemia (Acute) CHF (congestive heart failure) (Acute) Past Medical History Medical History Sick sinus syndrome Pacemaker Diabetes Hyperlipidemia HTN (hypertension) Pulmonary embolus ASD (atrial septal defect) CAD (coronary artery disease) Family History Family history of problems with anesthesia: No Surgical History History of Problems with Anesthesia: No Social History Social History Household Members: Spouse Housing: Apartment Housing Other:: four stairs up to apartment Are you a primary companion caregiver to a significant other at home: Yes Do you presently have visiting nurse or other home services: Yes Patient Tobacco Use Status: Never used Tobacco Smoked in Last 30 Days: No Use of substances other than those prescribed or required for medical reasons: No Currently Displaying Signs/Symptoms of Drug Intoxication Withdrawal: No Have you been hit, kicked, punched, or otherwise hurt by someone within the past year? If so, by whom?: No Do you feel safe in your current relationship?: Yes Is there a partner from a previous relationship who is making you feel unsafe now?: No Are you made to feel afraid or neglected: No Are you DNR?: Yes Advance Directives: Yes Advance Directives Information Provided: Yes Advance Directives on File: No Advance Directives Date on File: 11/29/23 Do you have a plan to hurt others: No Plan Recently lost weight without trying: No Eating poorly because of decreased appetite: No Nutrition Risks: No Nutritional Risk Patient : No : No Poor oral hygiene: No service: No Meds Allergies Allergy/AdvReac Type Severity Reaction Status Date / Time Penicillins Allergy Anaphylaxis Verified 11/29/23 09:26 vancomycin Allergy Hives Verified 11/29/23 09:26 Active Medications: Current Medications Acetaminophen (Acetaminophen 325 Mg Tablet) 650 mg PO Q6H PRN PRN Reason: Pain, Mild (Pain Scale 1-3), fever or headache Last Admin: 12/01/23 20:19 Dose: 650 mg Acetazolamide (Acetazolamide 250 Mg Tablet) 250 mg PO BID [facility] Stop: 12/02/23 21:01 Last Admin: 12/02/23 13:03 Dose: Not Given Aripiprazole (Aripiprazole 10 Mg Tablet) 10 mg PO BEDTIME [facility] Last Admin: 12/01/23 20:18 Dose: 10 mg Atorvastatin Calcium (Atorvastatin Calcium 80 Mg Tablet) 80 mg PO DAILY [facility] Last Admin: 12/02/23 09:22 Dose: 80 mg Benzonatate (Benzonatate 100 Mg Capsule) 100 mg PO TID PRN PRN Reason: Cough Calcium Carbonate (Calcium Carbonate 750 Mg Tab.Chew) 750 mg PO Q4H PRN PRN Reason: Heartburn Duloxetine HCl (Duloxetine Hcl 60 Mg Capsule.Dr) 120 mg PO DAILY [facility] Last Admin: 12/02/23 09:22 Dose: 120 mg Ezetimibe (Ezetimibe 10 Mg Tablet) 10 mg PO DAILY [facility] Last Admin: 12/02/23 09:22 Dose: 10 mg Furosemide (Furosemide 40 Mg/4 Ml Vial) 40 mg IVPUSH BID@0900,1800 [facility]; Protocol Last Admin: 12/02/23 09:22 Dose: 40 mg Glucose (Glucose Gel 15 Gm Gel..Gram.) 15 gm PO Q15M PRN; Protocol PRN Reason: per Hypoglycemia Standing Ord. Dextrose (D10) 250 mls @ 750 mls/hr IV Q15M PRN; Protocol PRN Reason: per Hypoglycemia Standing Ord. Lactated Ringer's (Lr) 1,000 mls @ 100 mls/hr IVCONT .Q10H [facility] Last Admin: 12/02/23 13:33 Dose: 100 mls/hr Insulin Human Lispro (Insulin Lispro 100 Unit/Ml 3 Ml Vial) 0 unit SUBCUT QIDACHS [facility]; Protocol Last Admin: 12/02/23 11:39 Dose: Not Given Lamotrigine (Lamotrigine 100 Mg Tablet) 100 mg PO BEDTIME [facility] Last Admin: 12/01/23 20:19 Dose: 100 mg Magnesium Hydroxide (Milk Of Magnesia 30 Ml Oral.Susp) 30 ml PO DAILY PRN PRN Reason: Constipation Melatonin (Melatonin 3 Mg Tablet) 6 mg PO BEDTIME PRN PRN Reason: Insomnia Metoprolol Succinate (Metoprolol Succinate Er 50 Mg Tab.Er.24h) 50 mg PO DAILY [facility]; Protocol Last Admin: 12/02/23 09:22 Dose: 50 mg Ondansetron HCl (Ondansetron Hcl 4 Mg/2 Ml Vial) 4 mg IVPUSH Q8H PRN PRN Reason: Nausea and Vomiting Pantoprazole Sodium (Pantoprazole Sodium 40 Mg/10 Ml Vial) 40 mg IVPUSH BID@0630,1630 [facility] Last Admin: 12/02/23 05:35 Dose: 40 mg Ranolazine (Ranolazine 500 Mg Tab.Er.12h) 500 mg PO BID [facility] Last Admin: 12/02/23 09:22 Dose: 500 mg Sodium Chloride (0.9 % Sodium Chloride Flush 3 Ml Syringe) 3 ml IVFLUSH QSHIFT [facility] Last Admin: 12/02/23 09:23 Dose: 3 ml Home Medications ?Medication ?Instructions ?Recorded ?Confirmed ?Last Taken ?Type apixaban 5 mg tablet (Eliquis) 5 mg PO BID 11/29/23 11/29/23 11/29/23 History aripiprazole 10 mg tablet 10 mg PO BEDTIME 11/29/23 11/29/23 11/28/23 History clopidogrel 75 mg tablet 75 mg PO DAILY 11/29/23 11/29/23 11/29/23 History duloxetine 60 mg capsule,delayed 120 mg PO DAILY 11/29/23 11/29/23 11/29/23 History release empagliflozin 25 mg tablet 25 mg PO DAILY 11/29/23 11/29/23 11/29/23 History (Jardiance) ezetimibe 10 mg tablet 10 mg PO DAILY 11/29/23 11/29/23 11/29/23 History glipizide 5 mg tablet, extended 5 mg PO DAILY 11/29/23 11/29/23 11/29/23 History release 24 hr lamotrigine 100 mg tablet 100 mg PO BEDTIME 11/29/23 11/29/23 11/28/23 History metoprolol succinate 100 mg 50 mg PO DAILY 11/29/23 11/29/23 11/29/23 History tablet,extended release 24 hr pantoprazole 40 mg tablet,delayed 40 mg PO BID 11/29/23 11/29/23 11/29/23 History release ranolazine 500 mg tablet,extended 500 mg PO BID 11/29/23 11/29/23 11/29/23 History release,12 hr rosuvastatin 40 mg tablet 40 mg PO DAILY 11/29/23 11/29/23 11/29/23 History sitagliptin phosphate 100 mg 100 mg PO DAILY 11/29/23 11/29/23 11/29/23 History tablet (Januvia) torsemide 10 mg tablet 20 mg PO DAILY 11/29/23 11/29/23 11/29/23 History Exam Exam Date and Time: 12/02/23 1410 Height,Weight and Vital Signs: Height 5 ft 6 in Weight 78.8 kg Last Vital Signs Temp 97.7 F 12/02/23 13:09 Pulse 76 12/02/23 13:09 Resp 18 12/02/23 13:09 BP 126/62 12/02/23 13:09 Pulse Ox 95 12/02/23 13:09 O2 Del Method Nasal Cannula 12/02/23 13:09 O2 Flow Rate 1 12/02/23 13:09 Pertinent Lab Results Pertinent Lab Results: Laboratory Tests 11/29/23 11/29/23 11/29/23 10:04 10:05 10:12 WBC 7.5 RBC 3.89 L Hgb 7.1 L Hct 26.4 L MCV 67.9 L MCH 18.3 L MCHC 26.9 L RDW 18.8 H Plt Count 322 MPV 9.8 Immature Gran % (Auto) 0.4 Neut % (Auto) 80.4 H Lymph % (Auto) 6.8 L [place] % (Auto) 10.3 Eos % (Auto) 1.6 Baso % (Auto) 0.5 Lymph # (Auto) 0.5 L [place] # (Auto) 0.8 Eos # (Auto) 0.1 Baso # (Auto) 0.0 Abs Immat Gran (auto) 0.03 Absolute Neuts (auto) 6.0 Absolute Nucleated RBC 0.030 H Nucleated RBC % (auto) 0.4 H VBG pH 7.37 VBG pCO2 58 VBG pO2 49 VBG HCO3 34 H VBG O2 Saturation 73.0 VBG Base Excess 8.0 Sodium 141 Potassium 3.4 Chloride 102 Carbon Dioxide 33 H Anion Gap 9 L BUN 16 Creatinine 0.88 Estim Creat Clear Calc 51.3 Estimated GFR > 60 POC Glucose Random Glucose 214 H Calcium 9.2 Magnesium 2.4 Iron 11 L TIBC 384 % Saturation 3 L Unsat Iron Binding 373 Total Bilirubin 0.5 Direct Bilirubin 0.2 AST 15 ALT 12 Alkaline Phosphatase 100 Troponin I High Sens 9.8 C-Reactive Protein 1.22 H B-Natriuretic Peptide 726 H Total Protein 6.7 Albumin 3.8 Lipase 19 Procalcitonin 0.13 Urine Color Yellow Urine Appearance Clear Urine pH 5.5 Ur Specific [place] 1.015 Urine Protein Trace Urine Glucose (UA) >=1000 H Urine Ketones Negative Urine Blood Negative Urine Nitrite Negative Ur Leukocyte Esterase Small (1+) H Urine RBC 0-2 Urine WBC 21-50 H Ur Squamous Epith Cells 3-5 Urine Bacteria None Seen Hyaline Casts 0-2 Stool Occult Blood Influenza Type A (PCR) NEGATIVE Influenza Type B (PCR) NEGATIVE RSV RNA Qual (PCR) NEGATIVE SARS-CoV-2 RNA (RT-PCR) NEGATIVE Blood Type Antibody Screen Crossmatch 11/29/23 11/29/23 11/29/23 10:30 18:34 20:09 WBC RBC Hgb Hct MCV MCH MCHC RDW Plt Count MPV Immature Gran % (Auto) Neut % (Auto) Lymph % (Auto) [place] % (Auto) Eos % (Auto) Baso % (Auto) Lymph # (Auto) [place] # (Auto) Eos # (Auto) Baso # (Auto) Abs Immat Gran (auto) Absolute Neuts (auto) Absolute Nucleated RBC Nucleated RBC % (auto) VBG pH VBG pCO2 VBG pO2 VBG HCO3 VBG O2 Saturation VBG Base Excess Sodium Potassium Chloride Carbon Dioxide Anion Gap BUN Creatinine Estim Creat Clear Calc Estimated GFR POC Glucose 142 H 179 H Random Glucose Calcium Magnesium Iron TIBC % Saturation Unsat Iron Binding Total Bilirubin Direct Bilirubin AST ALT Alkaline Phosphatase Troponin I High Sens C-Reactive Protein B-Natriuretic Peptide Total Protein Albumin Lipase Procalcitonin Urine Color Urine Appearance Urine pH Ur Specific [place] Urine Protein Urine Glucose (UA) Urine Ketones Urine Blood Urine Nitrite Ur Leukocyte Esterase Urine RBC Urine WBC Ur Squamous Epith Cells Urine Bacteria Hyaline Casts Stool Occult Blood NEGATIVE Influenza Type A (PCR) Influenza Type B (PCR) RSV RNA Qual (PCR) SARS-CoV-2 RNA (RT-PCR) Blood Type A Positive Antibody Screen NEGATIVE Crossmatch See Detail 11/30/23 11/30/23 11/30/23 05:50 07:51 11:21 WBC 10.3 RBC 4.25 Hgb 8.5 L Hct 30.2 L MCV 71.1 L MCH 20.0 L MCHC 28.1 L RDW 20.4 H Plt Count 297 MPV 10.0 Immature Gran % (Auto) Neut % (Auto) Lymph % (Auto) [place] % (Auto) Eos % (Auto) Baso % (Auto) Lymph # (Auto) [place] # (Auto) Eos # (Auto) Baso # (Auto) Abs Immat Gran (auto) Absolute Neuts (auto) Absolute Nucleated RBC 0.000 Nucleated RBC % (auto) 0.0 VBG pH VBG pCO2 VBG pO2 VBG HCO3 VBG O2 Saturation VBG Base Excess Sodium 143 Potassium 3.6 Chloride 102 Carbon Dioxide 36 H Anion Gap 9 L BUN 16 Creatinine 0.92 Estim Creat Clear Calc 49.0 Estimated GFR 58 POC Glucose 113 103 Random Glucose 104 Calcium 9.5 Magnesium Iron TIBC % Saturation Unsat Iron Binding Total Bilirubin Direct Bilirubin AST ALT Alkaline Phosphatase Troponin I High Sens C-Reactive Protein B-Natriuretic Peptide Total Protein Albumin Lipase Procalcitonin Urine Color Urine Appearance Urine pH Ur Specific [place] Urine Protein Urine Glucose (UA) Urine Ketones Urine Blood Urine Nitrite Ur Leukocyte Esterase Urine RBC Urine WBC Ur Squamous Epith Cells Urine Bacteria Hyaline Casts Stool Occult Blood Influenza Type A (PCR) Influenza Type B (PCR) RSV RNA Qual (PCR) SARS-CoV-2 RNA (RT-PCR) Blood Type Antibody Screen Crossmatch 11/30/23 11/30/23 12/01/23 16:09 20:01 05:32 WBC 8.8 RBC 4.03 L Hgb 8.1 L Hct 29.0 L MCV 72.0 L MCH 20.1 L MCHC 27.9 L RDW 20.7 H Plt Count 293 MPV 10.3 Immature Gran % (Auto) 0.3 Neut % (Auto) 74.4 H Lymph % (Auto) 13.4 L [place] % (Auto) 9.8 Eos % (Auto) 1.6 Baso % (Auto) 0.5 Lymph # (Auto) 1.2 [place] # (Auto) 0.9 Eos # (Auto) 0.1 Baso # (Auto) 0.0 Abs Immat Gran (auto) 0.03 Absolute Neuts (auto) 6.5 Absolute Nucleated RBC 0.000 Nucleated RBC % (auto) 0.0 VBG pH VBG pCO2 VBG pO2 VBG HCO3 VBG O2 Saturation VBG Base Excess Sodium Potassium Chloride Carbon Dioxide Anion Gap BUN Creatinine Estim Creat Clear Calc Estimated GFR POC Glucose 95 82 Random Glucose Calcium Magnesium Iron TIBC % Saturation Unsat Iron Binding Total Bilirubin Direct Bilirubin AST ALT Alkaline Phosphatase Troponin I High Sens C-Reactive Protein B-Natriuretic Peptide Total Protein Albumin Lipase Procalcitonin Urine Color Urine Appearance Urine pH Ur Specific [place] Urine Protein Urine Glucose (UA) Urine Ketones Urine Blood Urine Nitrite Ur Leukocyte Esterase Urine RBC Urine WBC Ur Squamous Epith Cells Urine Bacteria Hyaline Casts Stool Occult Blood Influenza Type A (PCR) Influenza Type B (PCR) RSV RNA Qual (PCR) SARS-CoV-2 RNA (RT-PCR) Blood Type Antibody Screen Crossmatch 12/01/23 12/01/23 12/01/23 07:07 07:33 11:10 WBC RBC Hgb Hct MCV MCH MCHC RDW Plt Count MPV Immature Gran % (Auto) Neut % (Auto) Lymph % (Auto) [place] % (Auto) Eos % (Auto) Baso % (Auto) Lymph # (Auto) [place] # (Auto) Eos # (Auto) Baso # (Auto) Abs Immat Gran (auto) Absolute Neuts (auto) Absolute Nucleated RBC Nucleated RBC % (auto) VBG pH VBG pCO2 VBG pO2 VBG HCO3 VBG O2 Saturation VBG Base Excess Sodium Potassium Chloride Carbon Dioxide Anion Gap BUN Creatinine Estim Creat Clear Calc Estimated GFR POC Glucose 64 78 236 H Random Glucose Calcium Magnesium Iron TIBC % Saturation Unsat Iron Binding Total Bilirubin Direct Bilirubin AST ALT Alkaline Phosphatase Troponin I High Sens C-Reactive Protein B-Natriuretic Peptide Total Protein Albumin Lipase Procalcitonin Urine Color Urine Appearance Urine pH Ur Specific [place] Urine Protein Urine Glucose (UA) Urine Ketones Urine Blood Urine Nitrite Ur Leukocyte Esterase Urine RBC Urine WBC Ur Squamous Epith Cells Urine Bacteria Hyaline Casts Stool Occult Blood Influenza Type A (PCR) Influenza Type B (PCR) RSV RNA Qual (PCR) SARS-CoV-2 RNA (RT-PCR) Blood Type Antibody Screen Crossmatch 12/01/23 12/01/23 12/02/23 16:09 20:08 05:14 WBC RBC Hgb Hct MCV MCH MCHC RDW Plt Count MPV Immature Gran % (Auto) Neut % (Auto) Lymph % (Auto) [place] % (Auto) Eos % (Auto) Baso % (Auto) Lymph # (Auto) [place] # (Auto) Eos # (Auto) Baso # (Auto) Abs Immat Gran (auto) Absolute Neuts (auto) Absolute Nucleated RBC Nucleated RBC % (auto) VBG pH VBG pCO2 VBG pO2 VBG HCO3 VBG O2 Saturation VBG Base Excess Sodium Potassium Chloride Carbon Dioxide Anion Gap BUN Creatinine Estim Creat Clear Calc Estimated GFR POC Glucose 89 130 H Random Glucose Calcium Magnesium Iron TIBC % Saturation Unsat Iron Binding Total Bilirubin Direct Bilirubin AST ALT Alkaline Phosphatase Troponin I High Sens C-Reactive Protein B-Natriuretic Peptide 201 H Total Protein Albumin Lipase Procalcitonin Urine Color Urine Appearance Urine pH Ur Specific [place] Urine Protein Urine Glucose (UA) Urine Ketones Urine Blood Urine Nitrite Ur Leukocyte Esterase Urine RBC Urine WBC Ur Squamous Epith Cells Urine Bacteria Hyaline Casts Stool Occult Blood Influenza Type A (PCR) Influenza Type B (PCR) RSV RNA Qual (PCR) SARS-CoV-2 RNA (RT-PCR) Blood Type Antibody Screen Crossmatch 12/02/23 12/02/23 12/02/23 05:15 07:23 10:48 WBC 6.2 RBC 4.80 Hgb 10.2 L D Hct 34.5 L MCV 71.9 L MCH 21.3 L MCHC 29.6 L RDW 22.2 H Plt Count 307 MPV 10.1 Immature Gran % (Auto) 0.3 Neut % (Auto) 64.0 Lymph % (Auto) 19.5 L [place] % (Auto) 12.1 H Eos % (Auto) 3.5 Baso % (Auto) 0.6 Lymph # (Auto) 1.2 [place] # (Auto) 0.8 Eos # (Auto) 0.2 Baso # (Auto) 0.0 Abs Immat Gran (auto) 0.02 Absolute Neuts (auto) 4.0 Absolute Nucleated RBC 0.000 Nucleated RBC % (auto) 0.0 VBG pH VBG pCO2 VBG pO2 VBG HCO3 VBG O2 Saturation VBG Base Excess Sodium 142 Potassium 3.8 Chloride 94 L Carbon Dioxide 41 H* Anion Gap 11 L BUN 16 Creatinine 0.88 Estim Creat Clear Calc 51.3 Estimated GFR > 60 POC Glucose 122 H Random Glucose 124 H Calcium 9.9 Magnesium 2.1 Iron TIBC % Saturation Unsat Iron Binding Total Bilirubin Direct Bilirubin AST ALT Alkaline Phosphatase Troponin I High Sens C-Reactive Protein B-Natriuretic Peptide Total Protein Albumin Lipase Procalcitonin Urine Color Urine Appearance Urine pH Ur Specific [place] Urine Protein Urine Glucose (UA) Urine Ketones Urine Blood Urine Nitrite Ur Leukocyte Esterase Urine RBC Urine WBC Ur Squamous Epith Cells Urine Bacteria Hyaline Casts Stool Occult Blood Influenza Type A (PCR) Influenza Type B (PCR) RSV RNA Qual (PCR) SARS-CoV-2 RNA (RT-PCR) Blood Type A Positive Antibody Screen NEGATIVE Crossmatch 12/02/23 12/02/23 12/02/23 10:56 11:02 13:22 WBC RBC Hgb Hct MCV MCH MCHC RDW Plt Count MPV Immature Gran % (Auto) Neut % (Auto) Lymph % (Auto) [place] % (Auto) Eos % (Auto) Baso % (Auto) Lymph # (Auto) [place] # (Auto) Eos # (Auto) Baso # (Auto) Abs Immat Gran (auto) Absolute Neuts (auto) Absolute Nucleated RBC Nucleated RBC % (auto) VBG pH 7.46 H VBG pCO2 63 VBG pO2 54 VBG HCO3 46 H VBG O2 Saturation 85.0 VBG Base Excess 18.8 Sodium Potassium Chloride Carbon Dioxide Anion Gap BUN Creatinine Estim Creat Clear Calc Estimated GFR POC Glucose 116 H 131 H Random Glucose Calcium Magnesium Iron TIBC % Saturation Unsat Iron Binding Total Bilirubin Direct Bilirubin AST ALT Alkaline Phosphatase Troponin I High Sens C-Reactive Protein B-Natriuretic Peptide Total Protein Albumin Lipase Procalcitonin Urine Color Urine Appearance Urine pH Ur Specific [place] Urine Protein Urine Glucose (UA) Urine Ketones Urine Blood Urine Nitrite Ur Leukocyte Esterase Urine RBC Urine WBC Ur Squamous Epith Cells Urine Bacteria Hyaline Casts Stool Occult Blood Influenza Type A (PCR) Influenza Type B (PCR) RSV RNA Qual (PCR) SARS-CoV-2 RNA (RT-PCR) Blood Type Antibody Screen Crossmatch Airway Mallampati Class: II TM Dist: >3cm Neck ROM: Full Loose/Missing/Broken Teeth: No (patient denies any loose or broken teeth) Heart: S1S2 Lungs: CTAB Assessment and Plan Assessment Anesthesia Assessment: Anesthesia Plan Discussed and Chart Reviewed Final Anesthetic Review Family History of Problems with Anesthesia: No History of Problems with Anesthesia: No NPO: Yes ASA Class: III Final Preanesthetic Review: No Changes in Pt Med Stat, Meds/Allgs Chart Reviewed, Consent Obtained/Reviewed, Anes Risks/Benef Reviewed and DNR Form (If Appl.) (DNR/DNI suspended for perioperative period) Patient Risk: Intermediate Procedure Risk: Low Anesthetic Plan Anesthetic Plan: MAC: and Agree w/ Assess. and Plan Disposition: Standard PACU
--- NOTE | 2023-12-02 14:57 | PM.OP ---
Brief Operative Note Date of Service: 12/02/23 Pre-op diagnosis: Anemia, ? Melena Post-op diagnosis: other (Hiatal hernia, Gill's esophagus, minimal changes of gastritis with erythema) Procedure: EGD Surgeon: Jatin Ramires MD Anesthesia: MAC Was an Service Center Supervisor used for this Procedure?: No Estimated blood loss (mL): 0 Pathology: none sent Condition: stable Disposition: PACU
--- NOTE | 2023-12-02 14:59 | PM.EVENT ---
Event Note Date of Service: 12/02/23 Event Note: GI-EGD-Full note dictated Findings: 1. 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 No esophagitis nor any lesions. Biopsies not taken. Hiatal hernia mucosa WNL. 2. Minimal gastric erythema 3. Minimal duodenitis Rec: Full liquid diet. PO PPI with omeprazole 40mg QD. F/U Hgb. I did speak with her before the procedure about the possibility of her needing a colonoscopy if the upper endo was not revealing. However, at that time she did not want to do it. I will review things again with her and her family to see what they want to do in light of her presentation with anemia, nondiagnostic EGD, and needing to be on 1 or 2 blood thinners. Thanks Time Spent With Patient Time: Total time managing care of this patient today ____ minutes.
--- NOTE | 2023-12-02 15:26 | MHC.CM.PN ---
PER ROUNDS PT MAY [facility] PLAN REMAINS HOME WITH BASTING PULLER THRU [facility]
[2023-12-02 16:28] LABS: Glucose, Whole Blood 127 mg/dL (60-115)
--- NOTE | 2023-12-02 17:57 | PM.EVENT ---
Event Note Date of Service: 12/02/23 Event Note: GI Followup I spoke with the patient and her son, Ace(he was on the phone), regarding the nondiagnostic EGD findings in regard to any definitive source of blood loss. We reviewed the need for a colonoscopy to R/O a lower GI source of bleeding such as a colon cancer, polyps, etc. prior to being discharged on a blood thinner. She is presently agreeable. I will order the prep for Saturday and will schedule the procedure for Saturday, 12/03, with me or Dr. Garza. Full consent has been obtained for this, including risks of bleeding and perforation. The patient and her son were comfortable with this plan. Thanks Time Spent With Patient Time: Total time managing care of this patient today ____ minutes.
[2023-12-02 20:16] LABS: Glucose, Whole Blood 242 mg/dL (60-115)
[2023-12-02] MEDS: Insulin Lispro 100 UNIT/ML 3 ML VIAL SUBCUT (20:47)
[2023-12-02] MEDS: ARIPiprazole 10 MG TABLET PO (20:47)
[2023-12-02] MEDS: lamoTRIgine 100 MG TABLET PO (20:47)
[2023-12-02] MEDS: acetaZOLAMIDE 250 MG TABLET PO (20:47)
--- NOTE | 2023-12-02 23:59 | OP_ITS ---
DATE OF SERVICE: 12/02/2023 SURGEON: Jatin Ramires MD INDICATIONS: The patient presents for evaluation of anemia and question of melena. Full consent has been obtained from her for this, including risks of bleeding and perforation. PREOPERATIVE DIAGNOSIS: POSTOPERATIVE DIAGNOSIS: PROCEDURE PERFORMED: Esophagogastroduodenoscopy. ESTIMATED BLOOD LOSS: COMPLICATIONS: ANESTHESIA: Monitored anesthesia care. ASSISTANTS: SPECIMENS: PREOPERATIVE DIAGNOSES: Anemia and question of melena. POSTOPERATIVE DIAGNOSES: Anemia and question of melena, hiatal hernia, Gill esophagus, minimal gastritis, minimal duodenitis. DESCRIPTION OF PROCEDURE: The patient was placed in the left lateral decubitus position. The Olympus video gastroscope was passed in the posterior oropharynx and upper esophagus under direct vision. The scope was passed slowly into the distal esophagus. The gastroesophageal junction appeared at 37 cm. At this level were changes of Gill mucosa extending from about 37 cm of the EG junction to 36 cm in a noncircumferential pattern. There was no evidence of any overlying esophagitis nor any lesions. The scope entered the stomach. There was a small hiatal hernia with normal-appearing mucosa. The scope was advanced to the pylorus, and the duodenum was cannulated to the descending portion. The duodenum including the bulb was inspected. I did advance the scope well past the 2nd and 3rd portions and as far as it would allow me. I did not visualize any mucosal abnormalities such as angiodysplasias or ulceration. There was some very minimal duodenitis in the duodenal bulb. The scope was withdrawn back to the stomach. The gastric antrum had some minimal areas of erythema, but no erosions or ulceration. There was good peristalsis. The scope was retroflexed visualizing the proximal stomach carefully, which appeared normal, without any sign of mass or ulceration. The scope was straightened. The scope was withdrawn back in the esophagus. I did not obtain biopsies at the Gill esophagus as she has had that done in the past with her previous endoscopies up in [place] and in [place]. I do not think that would be relevant for clinical information at this point. Proximal to 36 cm, the esophageal mucosa appeared normal. The scope was withdrawn from the patient. She tolerated the procedure well and was returned to the recovery area in stable condition. IMPRESSION: 1. 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 2. Minimal gastritis. 3. Minimal duodenitis. PLAN: Today's findings on her upper endoscopy would not necessarily account for her anemia, although she is on 2 chronic blood thinners, and perhaps, she is having more oozing than one would expect from these areas routinely. Nonetheless, I have spoken to her about a colonoscopy. When I spoke to her prior to today's procedure, she was not particularly eager to have that done. At this point, I will switch her to an oral PPI, advance her to a full liquid diet, and continue to follow her blood work. I will speak with her and her family again about a possible colonoscopy as I do think that would be important given her presentation with significant anemia and her potential need to go back on at least 1 blood thinner. MD TAO Flood/RICKEY / [id number] MTDD
[2023-12-03] VITALS (9 sets, daily range): BP systolic 92–139; BP diastolic 48–67; PULSE 73–91; RESP 14–20; TEMP 36–36.6; O2SAT 91–97
[2023-12-03 05:42] LABS: MANUAL DIFF FLAG NO
[2023-12-03] MEDS: Omeprazole 40 MG CAPSULE.DR PO (05:45)
[2023-12-03 05:49] LABS: VBG Base Excess 14.5 mmol/L; VBG HCO3 40 mmol/L (22-26); VBG pCO2 55 mmHg; VBG pH 7.47 (7.32-7.43); VBG pO2 79 mmHg
[2023-12-03 05:50] LABS: Basophils Percent Auto 0.5 % (0-2); Eosinophils Absolute Auto 0.3 X10*3/uL (0.0-0.4); Eosinophils Percent Auto 3.4 % (0-4); Hematocrit 38.4 % (37.0-47.0); Hemoglobin 11.3 g/dl (12.0-16.0); Imm Gran Abs Auto 0.03 X10*3/uL (0.00-0.03); Imm Gran Pct Auto 0.4 % (0.0-0.4); Lymphocytes Absolute Auto 1.2 X10*3/uL (1.2-4.9); Lymphocytes Percent Auto 16.7 % (20-40); Mean Corpuscular HGB Conc 29.4 g/dl (31.0-35.0); Mean Corpuscular Hemoglobin 21.3 pg (27.0-33.0); Mean Corpuscular Volume 72.5 fL (80.0-98.0); Mean Platelet Volume 9.9 fL (9.4-12.3); Monocytes Absolute Auto 0.9 X10*3/uL (0.1-1.2); Monocytes Percent Auto 12.3 % (2-11); Neutrophils Absolute Auto 4.9 x10*3/uL (2.0-8.3); Neutrophils Percent Auto 66.7 % (45-73); Platelet Count 325 X10*3/uL (160-400); Red Cell Distribution Width 23.4 % (11.0-16.0); White Blood Count 7.4 X10*3/uL (4.8-10.8)
[2023-12-03 05:51] LABS: Venous Blood Gas Refer to POC result
[2023-12-03 06:36] LABS: Anion Gap 12 (12-20); Blood Urea Nitrogen 18 mg/dL (9-16); Carbon Dioxide 36 mmol/L (22-29); Chloride 96 mmol/L (96-108); Creatinine Clr Calc Pharmacy 50.7; Estimated Glomerular Filt Rate > 60; Glucose Random 129 mg/dL (60-115); Magnesium 2.2 mg/dL (1.6-2.6); Sodium 141 mmol/L (135-145)
[2023-12-03 06:53] LABS: B Type Natriuretic Peptide 739 pg/mL (<100)
[2023-12-03 07:42] LABS: Glucose, Whole Blood 141 mg/dL (60-115)
[2023-12-03] MEDS: Atorvastatin Calcium 80 MG TABLET PO (08:21)
[2023-12-03] MEDS: Ranolazine 500 MG TAB.ER.12H PO ×2 (08:21→20:54)
[2023-12-03] MEDS: DULoxetine HCl 60 MG CAPSULE.DR 120 MG PO (08:22)
[2023-12-03] MEDS: Ezetimibe 10 MG TABLET PO (08:22)
[2023-12-03] MEDS: Metoprolol Succinate ER 50 MG TAB.ER.24H PO (08:22)
[2023-12-03] MEDS: 0.9 % Sodium Chloride Flush 3 ML SYRINGE IVFLUSH ×3 (08:22→20:56)
[2023-12-03] MEDS: Furosemide 40 MG/4 ML VIAL IVPUSH (08:22)
--- NOTE | 2023-12-03 08:22 | HO.POSTANES ---
Post Anesthesia Evaluation Post Anesthesia Evaluation Date of Service: 12/02/23 Vital Signs: Vital Signs Temp Pulse Resp BP Pulse Ox O2 Del Method O2 Flow Rate 12/03/23 07:59 97.9 F 74 18 122/59 L 97 Nasal Cannula 2 12/03/23 03:27 96.9 F 79 20 139/67 94 Nasal Cannula 2 Anesthesia: Monitored Mental Status: Awake Pain Control: Satisfactory Nausea/Vomiting: None
[2023-12-03] MEDS: Potassium Chloride/H20 10 MEQ/100 ML PIGGYBACK 100 MEQ IV (08:55)
--- NOTE | 2023-12-03 10:44 | HO.PM.IMPN ---
Subjective Subjective Date of Service: 12/03/23 Interval History: had EGD yesterday and agreed to colonoscopy today but now declines it dyspnea improved no abd pain Review of Systems Review of Systems: Yes all other systems are reviewed and are negative Physical Exam Vital Signs: Vital Signs: Last Vital Signs Temp 97.9 F 12/03/23 07:59 Pulse 74 12/03/23 08:22 Resp 18 12/03/23 07:59 BP 122/59 L 12/03/23 08:22 Pulse Ox 97 12/03/23 07:59 O2 Del Method Nasal Cannula 12/03/23 07:59 O2 Flow Rate 2 12/03/23 07:59 BMI result Body Mass Index 28.0 Gen: in no acute distress HEENT: sclera anicteric, moist mucus membranes Neck: supple, no JVD Lungs: clear bilaterally Heart: regular rate and rhythm, no murmurs Abd: soft, non-tender, non-distended Ext: no edema Skin: warm/well-perfused Neuro: alert and oriented x3, no focal findings Psych: appropriate affect Objective Data Active Medications Acetaminophen (Acetaminophen 325 Mg Tablet) 650 mg PO Q6H PRN PRN Reason: Pain, Mild (Pain Scale 1-3), fever or headache Last Admin: 12/01/23 20:19 Dose: 650 mg Documented By: CHRISTOPHE Apixaban (Apixaban 5 Mg Tablet) 5 mg PO BID [facility] Aripiprazole (Aripiprazole 10 Mg Tablet) 10 mg PO BEDTIME [facility] Last Admin: 12/02/23 20:47 Dose: 10 mg Documented By: HELDER Atorvastatin Calcium (Atorvastatin Calcium 80 Mg Tablet) 80 mg PO DAILY [facility] Last Admin: 12/03/23 08:21 Dose: 80 mg Documented By: NEY Benzonatate (Benzonatate 100 Mg Capsule) 100 mg PO TID PRN PRN Reason: Cough Bisacodyl (Bisacodyl 5 Mg Tablet.) 10 mg PO ONCE ONE Stop: 12/03/23 15:01 Calcium Carbonate (Calcium Carbonate 750 Mg Tab.Chew) 750 mg PO Q4H PRN PRN Reason: Heartburn Duloxetine HCl (Duloxetine Hcl 60 Mg Capsule.) 120 mg PO DAILY [facility] Last Admin: 12/03/23 08:22 Dose: 120 mg Documented By: NEY Ezetimibe (Ezetimibe 10 Mg Tablet) 10 mg PO DAILY [facility] Last Admin: 12/03/23 08:22 Dose: 10 mg Documented By: NYE Ferrous Sulfate (Ferrous Sulfate 324 Mg Tablet.) 324 mg PO DAILY [facility] Furosemide (Furosemide 40 Mg Tablet) 40 mg PO BID@0900,1800 [facility]; Protocol Glucose (Glucose Gel 15 Gm Gel..Gram.) 15 gm PO Q15M PRN; Protocol PRN Reason: per Hypoglycemia Standing Ord. Dextrose (D10) 250 mls @ 750 mls/hr IV Q15M PRN; Protocol PRN Reason: per Hypoglycemia Standing Ord. Insulin Human Lispro (Insulin Lispro 100 Unit/Ml 3 Ml Vial) 0 unit SUBCUT QIDACHS [facility]; Protocol Last Admin: 12/03/23 07:51 Dose: Not Given Documented By: NEY Non-Admin Reason: No Insulin Coverage Lamotrigine (Lamotrigine 100 Mg Tablet) 100 mg PO BEDTIME [facility] Last Admin: 12/02/23 20:47 Dose: 100 mg Documented By: HELDER Magnesium Hydroxide (Milk Of Magnesia 30 Ml Oral.Susp) 30 ml PO DAILY PRN PRN Reason: Constipation Melatonin (Melatonin 3 Mg Tablet) 6 mg PO BEDTIME PRN PRN Reason: Insomnia Metoprolol Succinate (Metoprolol Succinate Er 50 Mg Tab.Er.24h) 50 mg PO DAILY [facility]; Protocol Last Admin: 12/03/23 08:22 Dose: 50 mg Documented By: NEY Naloxone HCl (Naloxone Hcl 0.4 Mg/Ml Vial) 0.04 mg IVPUSH Q5M PRN PRN Reason: Excessive sedation or RR < 8 Omeprazole (Omeprazole 40 Mg Capsule.) 40 mg PO DAILY@0630 [facility] Last Admin: 12/03/23 05:45 Dose: 40 mg Documented By: HELDER Ondansetron HCl (Ondansetron Hcl 4 Mg/2 Ml Vial) 4 mg IVPUSH Q8H PRN PRN Reason: Nausea and Vomiting Ranolazine (Ranolazine 500 Mg Tab.Er.12h) 500 mg PO BID [facility] Last Admin: 12/03/23 08:21 Dose: 500 mg Documented By: NEY Sodium Chloride (0.9 % Sodium Chloride Flush 3 Ml Syringe) 3 ml IVFLUSH QSHIFT [facility] Last Admin: 12/03/23 08:22 Dose: 3 ml Documented By: NEY Labs 12/03/23 05:37 12/03/23 05:37 Labs: Laboratory Results - last 24 hr 12/02/23 12/02/23 12/02/23 10:48 10:56 11:02 MCV MCH MCHC RDW Plt Count MPV Immature Gran % (Auto) Neut % (Auto) Lymph % (Auto) [place] % (Auto) Eos % (Auto) Baso % (Auto) Lymph # (Auto) [place] # (Auto) Eos # (Auto) Baso # (Auto) Abs Immat Gran (auto) Absolute Neuts (auto) Absolute Nucleated RBC Nucleated RBC % (auto) PT INR VBG pH 7.46 H VBG pCO2 63 VBG pO2 54 VBG HCO3 46 H VBG O2 Saturation 85.0 VBG Base Excess 18.8 Anion Gap Estim Creat Clear Calc Estimated GFR POC Glucose 116 H Random Glucose Calcium Magnesium B-Natriuretic Peptide Blood Type A Positive Antibody Screen NEGATIVE 12/02/23 12/02/23 12/02/23 13:22 16:17 20:04 MCV MCH MCHC RDW Plt Count MPV Immature Gran % (Auto) Neut % (Auto) Lymph % (Auto) [place] % (Auto) Eos % (Auto) Baso % (Auto) Lymph # (Auto) [place] # (Auto) Eos # (Auto) Baso # (Auto) Abs Immat Gran (auto) Absolute Neuts (auto) Absolute Nucleated RBC Nucleated RBC % (auto) PT INR VBG pH VBG pCO2 VBG pO2 VBG HCO3 VBG O2 Saturation VBG Base Excess Anion Gap Estim Creat Clear Calc Estimated GFR POC Glucose 131 H 127 H 242 H Random Glucose Calcium Magnesium B-Natriuretic Peptide Blood Type Antibody Screen 12/03/23 12/03/23 12/03/23 05:37 05:45 07:32 MCV 72.5 L MCH 21.3 L MCHC 29.4 L RDW 23.4 H Plt Count 325 MPV 9.9 Immature Gran % (Auto) 0.4 Neut % (Auto) 66.7 Lymph % (Auto) 16.[address] [place] % (Auto) 12.3 H Eos % (Auto) 3.4 Baso % (Auto) 0.5 Lymph # (Auto) 1.2 [place] # (Auto) 0.9 Eos # (Auto) 0.3 Baso # (Auto) 0.0 Abs Immat Gran (auto) 0.03 Absolute Neuts (auto) 4.9 Absolute Nucleated RBC 0.000 Nucleated RBC % (auto) 0.0 PT 12.0 INR 1.0 VBG pH 7.47 H VBG pCO2 55 VBG pO2 79 VBG HCO3 40 H VBG O2 Saturation 98.0 VBG Base Excess 14.5 Anion Gap 12 Estim Creat Clear Calc 50.7 Estimated GFR > 60 POC Glucose 141 H Random Glucose 129 H Calcium 10.0 Magnesium 2.2 B-Natriuretic Peptide 739 H Blood Type Antibody Screen Assessment and Plan (1) Iron deficiency anemia: Status: Acute (2) CHF (congestive heart failure): Status: Acute (3) Anemia: Status: Acute Plan d5 83yo F with CAD s/p PCI on clopidogrel, AF on apixaban, HFpEF, HTN, DM2, SSS s/p PPM, HTN, HLD, GERD presenting with 2d of exertional dyspnea, found to have severe anemia likely from UGIB chronic blood loss/iron deficiency anemia due to likely UGIB - improved after 2u pRBCs transfused - underlying hx of GERD + Gill's esophagus - replete iron - EGD done 12/[address] Ramires showin. 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 No esophagitis nor any lesions. Biopsies not taken. Hiatal hernia mucosa WNL. 2. Minimal gastric erythema 3. Minimal duodenitis - declines colonoscopy now - was on clopidogrel + apixaban, which were held; resume apixaban and does not need clopidogrel per Cardiology - will monitor H+H tomorrow and recheck as outpt in 1 wk as well acute/chronic HFpEF - appears euvolemic now; place back on home torsemide 20 mg daily - TTE 12/01: - The left ventricular systolic function is hyperdynamic. The visually estimated ejection fraction is >70%. - Slight intraventricular and LVOT gradient. Peak resting LVOT gradient 18 mm Hg; no significant increase with Valsalva. - There is mild aortic valve regurgitation. - There is mild tricuspid valve regurgitation. - Cardiology consulted; no further preoperative workup needed - continue metoprolol succinate hypoK - replete, recheck level in AM AHRF due to CHF vs COPD/asthma - home O2 eval prior to discharge metabolic alkalosis likely due to chronic respiratory acidosis - improved after acetazolamide AF - resume apixaban; continue metoprolol succinate CAD - discontinue clopidogrel per Cardiology; continue ranolazine, ezetimibite, atorvastatin DM2 - luisito-dose lispro mood disorder - duloxetine + lamotrigine + aripiprazole VTE ppx - apixaban dispo - PT eval pending In my clinical judgment, the patient requires continued inpatient hospitalization for the following reasons: monitoring for GI bleeding Total time managing care of this patient today: 40 minutes. Quality Stroke Does the patient have a stroke diagnosis?: No VTE Prior VTE?: No VTE Risk Level:: Medical - moderate - high VTE Device Contraindication: Treatment Not Indicated VTE Drug Contraindication: N/A - Med Ordered
[2023-12-03] MEDS: Torsemide 20 MG TABLET PO (11:09)
[2023-12-03] MEDS: Ferrous Sulfate 324 MG TABLET.DR PO (11:09)
[2023-12-03] MEDS: Potassium Chloride Packet 20 MEQ PACKET 40 MEQ PO (11:09)
[2023-12-03] MEDS: Apixaban 5 MG TABLET PO ×2 (11:09→20:54)
[2023-12-03 12:04] LABS: Glucose, Whole Blood 211 mg/dL (60-115)
[2023-12-03] MEDS: Insulin Lispro 100 UNIT/ML 3 ML VIAL SUBCUT ×2 (12:18→20:55)
--- NOTE | 2023-12-03 15:27 | MHC.CM.PN ---
P.T. HAS RECOMMENDED STR FOR PT, PT IS AGREEABLE TO THE PLAN AND HAS NO PREFERENCE TO STR FACILITY. BROAD REFERRAL SENT TO CONTRACTED FACILITIES, AWAITING RESPONSES. CM WILL FOLLOW FOR ANY CHANGE TO PLAN.
[2023-12-03 16:07] LABS: Glucose, Whole Blood 131 mg/dL (60-115)
[2023-12-03 20:49] LABS: Glucose, Whole Blood 152 mg/dL (60-115)
[2023-12-03] MEDS: ARIPiprazole 10 MG TABLET PO (20:55)
[2023-12-03] MEDS: lamoTRIgine 100 MG TABLET PO (20:55)
[2023-12-04] VITALS (10 sets, daily range): BP systolic 111–135; BP diastolic 57–67; PULSE 62–80; RESP 15–20; TEMP 36–36.7; O2SAT 90–100
[2023-12-04] MEDS: Omeprazole 40 MG CAPSULE.DR PO (05:29)
[2023-12-04 06:58] LABS: MANUAL DIFF FLAG NO
[2023-12-04 07:12] LABS: Basophils Absolute Auto 0.1 X10*3/uL (0.0-0.2); Basophils Percent Auto 0.8 % (0-2); Eosinophils Absolute Auto 0.3 X10*3/uL (0.0-0.4); Eosinophils Percent Auto 3.6 % (0-4); Hematocrit 38.7 % (37.0-47.0); Hemoglobin 11.2 g/dl (12.0-16.0); Imm Gran Abs Auto 0.02 X10*3/uL (0.00-0.03); Imm Gran Pct Auto 0.3 % (0.0-0.4); Lymphocytes Absolute Auto 1.8 X10*3/uL (1.2-4.9); Lymphocytes Percent Auto 24.3 % (20-40); Mean Corpuscular HGB Conc 28.9 g/dl (31.0-35.0); Mean Corpuscular Volume 72.6 fL (80.0-98.0); Mean Platelet Volume 10.6 fL (9.4-12.3); Monocytes Absolute Auto 0.7 X10*3/uL (0.1-1.2); Monocytes Percent Auto 9.6 % (2-11); Neutrophils Absolute Auto 4.7 x10*3/uL (2.0-8.3); Neutrophils Percent Auto 61.4 % (45-73); Platelet Count 354 X10*3/uL (160-400); Red Blood Count 5.33 X10*6/uL (4.20-5.50); Red Cell Distribution Width 24.3 % (11.0-16.0); White Blood Count 7.6 X10*3/uL (4.8-10.8)
[2023-12-04 07:28] LABS: Glucose, Whole Blood 143 mg/dL (60-115)
[2023-12-04 07:34] LABS: B Type Natriuretic Peptide 337 pg/mL (<100)
[2023-12-04 07:37] LABS: Anion Gap 14 (12-20); Blood Urea Nitrogen 21 mg/dL (9-16); Calcium 10.1 mg/dL (8.4-10.2); Carbon Dioxide 34 mmol/L (22-29); Chloride 97 mmol/L (96-108); Glucose Fasting 136 mg/dL (60-99); Glucose Random 136 mg/dL (60-115); Magnesium 2.4 mg/dL (1.6-2.6); Potassium 3.7 mmol/L (3.3-5.1); Sodium 141 mmol/L (135-145)
[2023-12-04 07:48] LABS: Estimated Glomerular Filt Rate 47
[2023-12-04] MEDS: Ezetimibe 10 MG TABLET PO (08:04)
[2023-12-04] MEDS: 0.9 % Sodium Chloride Flush 3 ML SYRINGE IVFLUSH ×3 (08:04→20:46)
[2023-12-04] MEDS: Metoprolol Succinate ER 50 MG TAB.ER.24H PO (08:04)
[2023-12-04] MEDS: Atorvastatin Calcium 80 MG TABLET PO (08:05)
[2023-12-04] MEDS: Torsemide 20 MG TABLET PO (08:05)
[2023-12-04] MEDS: DULoxetine HCl 60 MG CAPSULE.DR 120 MG PO (08:05)
[2023-12-04] MEDS: Ranolazine 500 MG TAB.ER.12H PO ×2 (08:05→20:43)
[2023-12-04] MEDS: Apixaban 5 MG TABLET PO ×2 (08:05→20:43)
[2023-12-04] MEDS: Ferrous Sulfate 324 MG TABLET.DR PO (08:05)
--- NOTE | 2023-12-04 10:32 | MHC.CM.PN ---
Addendum entered by Mi Martinez 12/04/23 15:46: PER [facility], [employer] IS REQUESTING A PEER TO PEER REVIEW FOR APPROVAL FOR STR. [employer] WILL F/U WITH PROVIDER (PER JEREMIAS AT [facility], WILL CALL OUR PROVIDER BETWEEN 3 PM TO 4: 40 PM TODAY OR BETWEEN 9 AM AND 11 AM TOMORROW 12/04, PROVIDER MADE AWARE. PT UPDATED ON SITUATION. Original Note: DP: PT HAS BEEN MEDICALLY CLEARED FOR DC TO SHORT TERM REHAB AT [facility] (PT FIRST CHOICE FOR REHAB) PENDING INSURANCE AUTH. CENTER WILL BEGIN THE PROCESS. FINAL IMM DELIVERED. CM WILL AWAIT AUTH
--- NOTE | 2023-12-04 11:03 | P.PNIM_ITS ---
Subjective Subjective Date of Service: 12/04/23 Interval History: tolerating Eliquis, no overt GI bleed off O2, no dyspnea Review of Systems Review of Systems: Yes all other systems are reviewed and are negative Physical Exam 2 Vital Signs: Vital Signs: Last Vital Signs Temp 96.8 F 12/04/23 07:15 Pulse 62 12/04/23 09:32 Resp 20 12/04/23 07:15 BP 135/65 12/04/23 08:04 Pulse Ox 90 L 12/04/23 09:32 O2 Del Method Room Air 12/04/23 08:08 O2 Flow Rate 2 12/04/23 07:15 BMI result Body Mass Index 28.0 Gen: in no acute distress HEENT: sclera anicteric, moist mucus membranes Neck: supple, no JVD Lungs: clear bilaterally Heart: regular rate and rhythm, no murmurs Abd: soft, non-tender, non-distended Ext: no edema Skin: warm/well-perfused Neuro: alert and oriented x3, no focal findings Psych: appropriate affect Objective Data Active Medications Acetaminophen (Acetaminophen 325 Mg Tablet) 650 mg PO Q6H PRN PRN Reason: Pain, Mild (Pain Scale 1-3), fever or headache Last Admin: 12/01/23 20:19 Dose: 650 mg Documented By: CHRISTOPHE Apixaban (Apixaban 5 Mg Tablet) 5 mg PO BID [facility] Last Admin: 12/04/23 08:05 Dose: 5 mg Documented By: NEY Aripiprazole (Aripiprazole 10 Mg Tablet) 10 mg PO BEDTIME [facility] Last Admin: 12/03/23 20:55 Dose: 10 mg Documented By: HELDER Atorvastatin Calcium (Atorvastatin Calcium 80 Mg Tablet) 80 mg PO DAILY [facility] Last Admin: 12/04/23 08:05 Dose: 80 mg Documented By: NEY Benzonatate (Benzonatate 100 Mg Capsule) 100 mg PO TID PRN PRN Reason: Cough Calcium Carbonate (Calcium Carbonate 750 Mg Tab.Chew) 750 mg PO Q4H PRN PRN Reason: Heartburn Duloxetine HCl (Duloxetine Hcl 60 Mg Capsule.Dr) 120 mg PO DAILY [facility] Last Admin: 12/04/23 08:05 Dose: 120 mg Documented By: NEY Ezetimibe (Ezetimibe 10 Mg Tablet) 10 mg PO DAILY [facility] Last Admin: 12/04/23 08:04 Dose: 10 mg Documented By: NEY Ferrous Sulfate (Ferrous Sulfate 324 Mg Tablet.) 324 mg PO DAILY [facility] Last Admin: 12/04/23 08:05 Dose: 324 mg Documented By: NEY Glucose (Glucose Gel 15 Gm Gel..Gram.) 15 gm PO Q15M PRN; Protocol PRN Reason: per Hypoglycemia Standing Ord. Dextrose (D10) 250 mls @ 750 mls/hr IV Q15M PRN; Protocol PRN Reason: per Hypoglycemia Standing Ord. Insulin Human Lispro (Insulin Lispro 100 Unit/Ml 3 Ml Vial) 0 unit SUBCUT QIDACHS [facility]; Protocol Last Admin: 12/04/23 07:51 Dose: Not Given Documented By: NEY Non-Admin Reason: No Insulin Coverage Lamotrigine (Lamotrigine 100 Mg Tablet) 100 mg PO BEDTIME [facility] Last Admin: 12/03/23 20:55 Dose: 100 mg Documented By: HELDER Magnesium Hydroxide (Milk Of Magnesia 30 Ml Oral.Susp) 30 ml PO DAILY PRN PRN Reason: Constipation Melatonin (Melatonin 3 Mg Tablet) 6 mg PO BEDTIME PRN PRN Reason: Insomnia Metoprolol Succinate (Metoprolol Succinate Er 50 Mg Tab.Er.24h) 50 mg PO DAILY [facility]; Protocol Last Admin: 12/04/23 08:04 Dose: 50 mg Documented By: NEY Naloxone HCl (Naloxone Hcl 0.4 Mg/Ml Vial) 0.04 mg IVPUSH Q5M PRN PRN Reason: Excessive sedation or RR < 8 Omeprazole (Omeprazole 40 Mg Capsule.) 40 mg PO DAILY@0630 [facility] Last Admin: 12/04/23 05:29 Dose: 40 mg Documented By: HELDER Ondansetron HCl (Ondansetron Hcl 4 Mg/2 Ml Vial) 4 mg IVPUSH Q8H PRN PRN Reason: Nausea and Vomiting Ranolazine (Ranolazine 500 Mg Tab.Er.12h) 500 mg PO BID [facility] Last Admin: 12/04/23 08:05 Dose: 500 mg Documented By: NEY Sodium Chloride (0.9 % Sodium Chloride Flush 3 Ml Syringe) 3 ml IVFLUSH QSHIFT [facility] Last Admin: 12/04/23 08:04 Dose: 3 ml Documented By: NEY Torsemide (Torsemide 20 Mg Tablet) 20 mg PO DAILY [facility]; Protocol Last Admin: 12/04/23 08:05 Dose: 20 mg Documented By: NEY Labs 12/04/23 05:20 12/04/23 05:20 Labs: Laboratory Results - last 24 hr 12/03/23 12/03/23 12/03/23 11:54 16:02 20:44 MCV MCH MCHC RDW Plt Count MPV Immature Gran % (Auto) Neut % (Auto) Lymph % (Auto) [place] % (Auto) Eos % (Auto) Baso % (Auto) Lymph # (Auto) [place] # (Auto) Eos # (Auto) Baso # (Auto) Abs Immat Gran (auto) Absolute Neuts (auto) Absolute Nucleated RBC Nucleated RBC % (auto) Anion Gap Estim Creat Clear Calc Estimated GFR POC Glucose 211 H 131 H 152 H Random Glucose Fasting Glucose Calcium Magnesium B-Natriuretic Peptide 12/04/23 12/04/23 05:20 07:15 MCV 72.6 L MCH 21.0 L MCHC 28.9 L RDW 24.3 H Plt Count 354 MPV 10.6 Immature Gran % (Auto) 0.3 Neut % (Auto) 61.4 Lymph % (Auto) 24.3 [place] % (Auto) 9.6 Eos % (Auto) 3.6 Baso % (Auto) 0.8 Lymph # (Auto) 1.8 [place] # (Auto) 0.7 Eos # (Auto) 0.3 Baso # (Auto) 0.1 Abs Immat Gran (auto) 0.02 Absolute Neuts (auto) 4.7 Absolute Nucleated RBC 0.000 Nucleated RBC % (auto) 0.0 Anion Gap 14 Estim Creat Clear Calc 41.0 Estimated GFR 47 POC Glucose 143 H Random Glucose 136 H Fasting Glucose 136 H Calcium 10.1 Magnesium 2.4 B-Natriuretic Peptide 337 H Assessment and Plan (1) Iron deficiency anemia: Status: Acute (2) CHF (congestive heart failure): Status: Acute (3) Anemia: Status: Acute Plan d6 83yo F with CAD s/p PCI on clopidogrel, AF on apixaban, HFpEF, HTN, DM2, SSS s/p PPM, HTN, HLD, GERD presenting with 2d of exertional dyspnea, found to have severe anemia likely from UGIB chronic blood loss/iron deficiency anemia due to likely UGIB - improved after 2u pRBCs transfused - underlying hx of GERD + Gill's esophagus - repleting iron PO - EGD done 12/[address] Ramires showin. 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 No esophagitis nor any lesions. Biopsies not taken. Hiatal hernia mucosa WNL. 2. Minimal gastric erythema 3. Minimal duodenitis - declined colonoscopy - was on clopidogrel + apixaban, which were held; resume apixaban and does not need clopidogrel per Cardiology - H+H stable; repeat in 1 week acute/chronic HFpEF - appears euvolemic; continue torsemide 20 mg daily - TTE 12/01: - The left ventricular systolic function is hyperdynamic. The visually estimated ejection fraction is >70%. - Slight intraventricular and LVOT gradient. Peak resting LVOT gradient 18 mm Hg; no significant increase with Valsalva. - There is mild aortic valve regurgitation. - There is mild tricuspid valve regurgitation. - Cardiology consulted; no further preoperative workup needed - continue metoprolol succinate hypoK - repleted AHRF due to CHF vs COPD/asthma - hypoxia resolved metabolic alkalosis likely due to chronic respiratory acidosis - improved after acetazolamide AF - resume apixaban; continue metoprolol succinate CAD - discontinued clopidogrel per Cardiology; continue ranolazine, ezetimibite, atorvastatin DM2 - luisito-dose lispro mood disorder - duloxetine + lamotrigine + aripiprazole VTE ppx - apixaban dispo - plan STR In my clinical judgment, the patient requires continued inpatient hospitalization for the following reasons: placement Total time managing care of this patient today: 35 minutes. Quality Stroke Does the patient have a stroke diagnosis?: No VTE Prior VTE?: No VTE Risk Level:: Medical - moderate - high VTE Device Contraindication: Treatment Not Indicated VTE Drug Contraindication: N/A - Med Ordered
--- NOTE | 2023-12-04 11:06 | P.DS_ITS ---
DS: Providers Provider Date of Service: 12/04/23 Date of admission: 11/29/23 16:23 Date of discharge: 12/04/23 Primary care physician: Yobany Weinberg MD Consults: 11/29/23 16:27 Consult to Gastroenterology Routine Consulting Provider: Jatin Ramires Reason for consultation: Symptomatic anemia H&H 7.1/26.4, ?GI bleed 12/01/23 09:30 Consult to Cardiology Routine Consulting Provider: [facility] Reason for consultation: chf/preop Has provider been notified: No DS: Diagnosis Discharge Diagnosis (1) Iron deficiency anemia: Status: Acute (2) Anemia: Status: Acute (3) Chronic blood loss anemia: Status: Acute (4) Acute on chronic heart failure with preserved ejection fraction (HFpEF): Status: Acute (5) Atrial fibrillation: Status: Acute DS: Summary Hospital Course Hospital Course: From the history and physical by the admitting hospitalist, JINA Hogan, 11/29/23: Pt is an 83-year-old female with a PMH significant for?CAD, NSTEMI on Plavix, AFib on Eliquis, unspecified CHF, HTN, [id number] type 2 diabetes, SSS s/p pacemaker in place, HTN, HLD, and GERD who presents to the ED with?SOB, MACIAS, and malaise x2 days. Patient reports symptoms began shortly after receiving a COVID booster shot on Saturday. Initially felt sore in both of her upper arms, but then began experiencing shortness a breath, dyspnea, and unsteadiness on her feet especially with exertion. Also perhaps has had worsening lightheadedness and dizziness, though patient admits these symptoms are chronic and is difficult for her to say. Has been experiencing dark colored stools for a long time though unable to further specify length. Denies any nausea, vomiting, abdominal pain. No chest pain/pressure or palpitations. Denies any GERD like symptoms. No hematemesis, hemoptysis, or hematochezia. Denies any NSAID use. No recent falls at home. Denies lower leg edema. Follows with [facility]. In the ED pt was tachypneic up to 28 and soft BP as low as 111/51. Labs were significant for microcytic anemia of 7.1/26.4 and MCV 69, BNP 726, and procalcitonin of 0.13. No leukocytosis No significant electrolyte abnormalities. Renal function and hepatic function baseline. Stool negative for occult blood. UA with small amount of leukocyte esterase and wbc's 21-50, but no bacteria seen. Tested negative for flu, COVID, RSV. CXR showed no acute cardiopulmonary. EKG demonstrated atrial paced rhythm with prolonged AV conduction with RBBB, but no significant ST elevations or depressions. Pt was treated with furosemide 20 mg IV, Protonix, and transfused 1 unit PRBCs. Pt will be admitted to the hospital for treatment and further evaluation of symptomatic anemia likely from UGIB. 83yo F with CAD s/p PCI on clopidogrel, AF on apixaban, HFpEF, HTN, DM2, SSS s/p PPM, HTN, HLD, and GERD presenting with 2d of exertional dyspnea, found to have severe anemia likely from UGIB. She was admitted to the medical-surgical unit. Hospital course by problem: chronic blood loss/iron deficiency anemia due to likely UGIB - improved after 2u pRBCs transfused - underlying hx of GERD + Gill's esophagus - EGD done 12/02/[address] Jatin Ramires showed: 1. 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 No esophagitis nor any lesions. Biopsies not taken. Hiatal hernia mucosa WNL. 2. Minimal gastric erythema 3. Minimal duodenitis - declined colonoscopy - was on clopidogrel + apixaban, which were held; resumed apixaban and does not need clopidogrel per Cardiology - H+H stable [11.2 at discharge]; repeat in 1 week acute/chronic HFpEF - diuresed to euvolemia with IV furosemide and IV acetazolamide and restarted home torsemide - TTE 12/02/23: - The left ventricular systolic function is hyperdynamic. The visually estimated ejection fraction is >70%. - Slight intraventricular and LVOT gradient. Peak resting LVOT gradient 18 mm Hg; no significant increase with Valsalva. - There is mild aortic valve regurgitation. - There is mild tricuspid valve regurgitation. - Cardiology consulted; no further preoperative workup needed acute hypoxic respiratory failure due to CHF - hypoxia resolved and did not qualify for home oxygen atrial fibrillation - resumed apixabad as above CAD - discontinued clopidogrel per Cardiology She was discharged to [facility] for short-term rehabilitation and should have Cardiology follow-up in 2 weeks and Primary Care follow up 1 week after discharge from [facility]. The anticipated length of stay at the SNF is less than 30 days. Time Attestation Discharge Coordination Time (in mins): 45 Quality: Safe Use of Opioids Does Pt have an Active Cancer Diagnosis on the Problem List?: No Quality: Stroke Does the patient have a stroke diagnosis?: No Physical Exam Vital Signs: Vital Signs: Last Vital Signs Temp 96.8 F 12/04/23 07:15 Pulse 62 12/04/23 09:32 Resp 20 12/04/23 07:15 BP 135/65 12/04/23 08:04 Pulse Ox 90 L 12/04/23 09:32 O2 Del Method Room Air 12/04/23 08:08 O2 Flow Rate 2 12/04/23 07:15 BMI result Body Mass Index 28.0 Gen: in no acute distress HEENT: sclera anicteric, moist mucus membranes Neck: supple, no JVD Lungs: clear bilaterally Heart: regular rate and rhythm, no murmurs Abd: soft, non-tender, non-distended Ext: no edema Skin: warm/well-perfused Neuro: alert and oriented x3, no focal findings Psych: appropriate affect DS: Data Data Completed and Pending Completed studies during hospitalization [Text1]: Laboratory Results WBC 7.6 X10*3/uL (4.8-10.8) 12/04/23 05:20 RBC 5.33 X10*6/uL (4.20-5.50) 12/04/23 05:20 Hgb 11.2 g/dl (12.0-16.0) L 12/04/23 05:20 Hct 38.7 % (37.0-47.0) 12/04/23 05:20 MCV 72.6 fL (80.0-98.0) L 12/04/23 05:20 MCH 21.0 pg (27.0-33.0) L 12/04/23 05:20 MCHC 28.9 g/dl (31.0-35.0) L 12/04/23 05:20 RDW 24.3 % (11.0-16.0) H 12/04/23 05:20 Plt Count 354 X10*3/uL (160-400) 12/04/23 05:20 MPV 10.6 fL (9.4-12.3) 12/04/23 05:20 Immature Gran % (Auto) 0.3 % (0.0-0.4) 12/04/23 05:20 Neut % (Auto) 61.4 % (45-73) 12/04/23 05:20 Lymph % (Auto) 24.3 % (20-40) 12/04/23 05:20 [place] % (Auto) 9.6 % (2-11) 12/04/23 05:20 Eos % (Auto) 3.6 % (0-4) 12/04/23 05:20 Baso % (Auto) 0.8 % (0-2) 12/04/23 05:20 Lymph # (Auto) 1.8 X10*3/uL (1.2-4.9) 12/04/23 05:20 [place] # (Auto) 0.7 X10*3/uL (0.1-1.2) 12/04/23 05:20 Eos # (Auto) 0.3 X10*3/uL (0.0-0.4) 12/04/23 05:20 Baso # (Auto) 0.1 X10*3/uL (0.0-0.2) 12/04/23 05:20 Abs Immat Gran (auto) 0.02 X10*3/uL (0.00-0.03) 12/04/23 05:20 Absolute Neuts (auto) 4.7 x10*3/uL (2.0-8.3) 12/04/23 05:20 Absolute Nucleated RBC 0.000 X10*3/uL (0.0-0.012) 12/04/23 05:20 Nucleated RBC % (auto) 0.0 /100WBC (0.0-0.2) 12/04/23 05:20 PT 12.0 SEC (10.9-12.4) 12/03/23 05:37 INR 1.0 (0.9-1.1) 12/03/23 05:37 VBG pH 7.47 (7.32-7.43) H 12/03/23 05:45 VBG pCO2 55 mmHg 12/03/23 05:45 VBG pO2 79 mmHg 12/03/23 05:45 VBG HCO3 40 mmol/L (22-26) H 12/03/23 05:45 VBG O2 Saturation 98.0 % 12/03/23 05:45 VBG Base Excess 14.5 mmol/L 12/03/23 05:45 Sodium 141 mmol/L (135-145) 12/04/23 05:20 Potassium 3.7 mmol/L (3.3-5.1) D 12/04/23 05:20 Chloride 97 mmol/L (96-108) 12/04/23 05:20 Carbon Dioxide 34 mmol/L (22-29) H 12/04/23 05:20 Anion Gap 14 (12-20) 12/04/23 05:20 BUN 21 mg/dL (9-16) H 12/04/23 05:20 Creatinine 1.10 mg/dL (0.5-1.4) 12/04/23 05:20 Estim Creat Clear Calc 41.0 12/04/23 05:20 Estimated GFR 47 12/04/23 05:20 POC Glucose 143 mg/dL (60-115) H 12/04/23 07:15 Random Glucose 136 mg/dL (60-115) H 12/04/23 05:20 Fasting Glucose 136 mg/dL (60-99) H 12/04/23 05:20 Calcium 10.1 mg/dL (8.4-10.2) 12/04/23 05:20 Magnesium 2.4 mg/dL (1.6-2.6) 12/04/23 05:20 Iron 11 mcg/dL (30-160) L 11/29/23 10:05 TIBC 384 mcg/dL (228-428) 11/29/23 10:05 % Saturation 3 % (15-50) L 11/29/23 10:05 Unsat Iron Binding 373 ug/dL 11/29/23 10:05 Total Bilirubin 0.5 mg/dL (0.0-1.0) 11/29/23 10:05 Direct Bilirubin 0.2 mg/dL (0.0-0.5) 11/29/23 10:05 AST 15 U/L (5-31) 11/29/23 10:05 ALT 12 U/L (0-31) 11/29/23 10:05 Alkaline Phosphatase 100 U/L (39-117) 11/29/23 10:05 Troponin I High Sens 9.8 ng/L (<3.5-17.0) 11/29/23 10:05 C-Reactive Protein 1.22 mg/dL (< or = 0.50) H 11/29/23 10:05 B-Natriuretic Peptide 337 pg/mL (<100) H 12/04/23 05:20 Total Protein 6.7 g/dL (6.5-8.0) 11/29/23 10:05 Albumin 3.8 g/dL (3.5-5.0) 11/29/23 10:05 Lipase 19 U/L (8-78) 11/29/23 10:05 Procalcitonin 0.13 ng/mL 11/29/23 10:05 Urine Color Yellow 11/29/23 10:12 Urine Appearance Clear 11/29/23 10:12 Urine pH 5.5 (5.0-9.0) 11/29/23 10:12 Ur Specific [place] 1.015 (1.005-1.025) 11/29/23 10:12 Urine Protein Trace mg/dL (Neg-Trace) 11/29/23 10:12 Urine Glucose (UA) >=1000 mg/dL (Negative) H 11/29/23 10:12 Urine Ketones Negative mg/dL (Negative) 11/29/23 10:12 Urine Blood Negative (Negative) 11/29/23 10:12 Urine Nitrite Negative (Negative) 11/29/23 10:12 Ur Leukocyte Esterase Small (1+) (Negative) H 11/29/23 10:12 Urine RBC 0-2 /HPF (0-2) 11/29/23 10:12 Urine WBC 21-50 /HPF (0-5) H 11/29/23 10:12 Ur Squamous Epith Cells 3-5 /HPF (0-2) 11/29/23 10:12 Urine Bacteria None Seen (None Seen) 11/29/23 10:12 Hyaline Casts 0-2 /LPF (0-2) 11/29/23 10:12 Stool Occult Blood NEGATIVE (NEGATIVE) 11/29/23 10:30 Influenza Type A (PCR) NEGATIVE (Negative) 11/29/23 10:05 Influenza Type B (PCR) NEGATIVE (Negative) 11/29/23 10:05 RSV RNA Qual (PCR) NEGATIVE (Negative) 11/29/23 10:05 SARS-CoV-2 RNA (RT-PCR) NEGATIVE (Negative) 11/29/23 10:05 Blood Type A Positive 12/02/23 10:48 Antibody Screen NEGATIVE 12/02/23 10:48 Crossmatch See Detail 11/29/23 10:30 Impressions Chest X-Ray 12/01/23 09:38 IMPRESSION: No acute cardiopulmonary findings. Electronically signed by: Naman James MD 12/01/2023 09:51 AM EDT RP Discharge Plan Discharge Anticipated Discharge Date/Time: 12/04/23 10:59 Patient Disposition: [facility] Discharge Diagnosis: chronic blood loss/iron deficiency anemia hypoxia [resolved] due to CHF exacerbation atrial fibrillation coronary artery disease [facility] Week (TRANSFER FOR SHORT TERM REHAB) Yobany Weinberg MD [Primary Care Provider] - 1 Week Bruce Sharpe MD [Physician] - 2 Weeks Discharge Medications: New ferrous sulfate 324 mg (65 mg iron) Tablet,Delayed Release (Dr/Ec) 324 mg PO DAILY Qty: 30 0RF Continued metoprolol succinate 100 mg tablet extended release 24 hr 50 mg PO DAILY glipizide 5 mg tablet extended release 24hr 5 mg PO DAILY torsemide 10 mg tablet 20 mg PO DAILY pantoprazole 40 mg tablet,delayed release (DR/EC) 40 mg PO BID lamotrigine 100 mg tablet 100 mg PO BEDTIME ezetimibe 10 mg tablet 10 mg PO DAILY aripiprazole 10 mg tablet 10 mg PO BEDTIME rosuvastatin 40 mg tablet 40 mg PO DAILY duloxetine 60 mg capsule,delayed release(DR/EC) 120 mg PO DAILY ranolazine 500 mg tablet extended release 12 hr 500 mg PO BID Januvia 100 mg tablet 100 mg PO DAILY Eliquis 5 mg tablet 5 mg PO BID Jardiance 25 mg tablet 25 mg PO DAILY Discontinued clopidogrel 75 mg tablet 75 mg PO DAILY Diet: Advance to usual diet Activity on Discharge: As tolerated Stand Alone Forms: Patient Portal Discharge page Print Language: German Care Plan Goals: safe anticoagulation cardiovascular health Health Concerns: chronic blood loss/iron deficiency anemia hypoxia [resolved] due to CHF exacerbation atrial fibrillation coronary artery disease Plan of Treatment: STOP clopidogrel [Plavix] CONTINUE apixaban [Eliquis] take ferrous sulfate [iron] 325 mg once daily repeat hemoglobin/hematocrit in 1 week transfer to short-term rehab at [facility] Please follow up with your primary care doctor within 1 week of discharge from short-term rehabilitation. Return to the hospital if you experience recurrent or worsening symptoms. Assessment: See Discharge Summary.
[2023-12-04 11:53] LABS: Glucose, Whole Blood 171 mg/dL (60-115)
[2023-12-04] MEDS: Insulin Lispro 100 UNIT/ML 3 ML VIAL SUBCUT ×2 (12:02→20:46)
[2023-12-04 16:08] LABS: Glucose, Whole Blood 118 mg/dL (60-115)
[2023-12-04 20:38] LABS: Glucose, Whole Blood 160 mg/dL (60-115)
[2023-12-04] MEDS: ARIPiprazole 10 MG TABLET PO (20:43)
[2023-12-04] MEDS: lamoTRIgine 100 MG TABLET PO (20:44)
[2023-12-05] VITALS (7 sets, daily range): BP systolic 105–140; BP diastolic 53–79; PULSE 70–80; RESP 14–18; TEMP 36–37.1; O2SAT 92–94
[2023-12-05] MEDS: Omeprazole 40 MG CAPSULE.DR PO (05:47)
[2023-12-05 07:49] LABS: Glucose, Whole Blood 118 mg/dL (60-115)
[2023-12-05] MEDS: Apixaban 5 MG TABLET PO ×2 (08:46→20:40)
[2023-12-05] MEDS: DULoxetine HCl 60 MG CAPSULE.DR 120 MG PO (08:46)
[2023-12-05] MEDS: Metoprolol Succinate ER 50 MG TAB.ER.24H PO (08:46)
[2023-12-05] MEDS: Ezetimibe 10 MG TABLET PO (08:46)
[2023-12-05] MEDS: Atorvastatin Calcium 80 MG TABLET PO (08:47)
[2023-12-05] MEDS: Ranolazine 500 MG TAB.ER.12H PO ×2 (08:47→20:40)
[2023-12-05] MEDS: 0.9 % Sodium Chloride Flush 3 ML SYRINGE IVFLUSH ×2 (08:47→17:08)
[2023-12-05] MEDS: Torsemide 20 MG TABLET PO (08:50)
[2023-12-05] MEDS: Ferrous Sulfate 324 MG TABLET.DR PO (08:51)
[2023-12-05 11:42] LABS: Glucose, Whole Blood 252 mg/dL (60-115)
[2023-12-05] MEDS: Insulin Lispro 100 UNIT/ML 3 ML VIAL SUBCUT ×2 (11:51→20:40)
--- NOTE | 2023-12-05 12:45 | HO.PM.IMPN ---
Subjective Subjective Date of Service: 12/05/23 Interval History: no GI bleeding no leg swelling or dyspnea awaiting authorization for STR from [facility] Review of Systems Review of Systems: Yes all other systems are reviewed and are negative Physical Exam Vital Signs: Vital Signs: Last Vital Signs Temp 98.6 F 12/05/23 07:38 Pulse 80 12/05/23 08:46 Resp 18 12/05/23 07:38 BP 123/60 12/05/23 08:46 Pulse Ox 93 12/05/23 07:38 O2 Del Method Room Air 12/05/23 07:38 O2 Flow Rate 2 12/04/23 07:15 BMI result Body Mass Index 28.0 Gen: in no acute distress HEENT: sclera anicteric, moist mucus membranes Neck: supple, no JVD Lungs: clear bilaterally Heart: regular rate and rhythm, no murmurs Abd: soft, non-tender, non-distended Ext: no edema Skin: warm/well-perfused Neuro: alert and oriented x3, no focal findings Psych: appropriate affect Objective Data Active Medications Acetaminophen (Acetaminophen 325 Mg Tablet) 650 mg PO Q6H PRN PRN Reason: Pain, Mild (Pain Scale 1-3), fever or headache Last Admin: 12/01/23 20:19 Dose: 650 mg Documented By: CHRISTOPHE Apixaban (Apixaban 5 Mg Tablet) 5 mg PO BID [facility] Last Admin: 12/05/23 08:46 Dose: 5 mg Documented By: CHIKI Aripiprazole (Aripiprazole 10 Mg Tablet) 10 mg PO BEDTIME [facility] Last Admin: 12/04/23 20:43 Dose: 10 mg Documented By: CAMRYN Atorvastatin Calcium (Atorvastatin Calcium 80 Mg Tablet) 80 mg PO DAILY [facility] Last Admin: 12/05/23 08:47 Dose: 80 mg Documented By: CHIKI Benzonatate (Benzonatate 100 Mg Capsule) 100 mg PO TID PRN PRN Reason: Cough Calcium Carbonate (Calcium Carbonate 750 Mg Tab.Chew) 750 mg PO Q4H PRN PRN Reason: Heartburn Duloxetine HCl (Duloxetine Hcl 60 Mg Capsule.Dr) 120 mg PO DAILY [facility] Last Admin: 12/05/23 08:46 Dose: 120 mg Documented By: CHIKI Ezetimibe (Ezetimibe 10 Mg Tablet) 10 mg PO DAILY [facility] Last Admin: 12/05/23 08:46 Dose: 10 mg Documented By: CHIKI Ferrous Sulfate (Ferrous Sulfate 324 Mg Tablet.) 324 mg PO DAILY [facility] Last Admin: 12/05/23 08:51 Dose: 324 mg Documented By: CHIKI Glucose (Glucose Gel 15 Gm Gel..Gram.) 15 gm PO Q15M PRN; Protocol PRN Reason: per Hypoglycemia Standing Ord. Dextrose (D10) 250 mls @ 750 mls/hr IV Q15M PRN; Protocol PRN Reason: per Hypoglycemia Standing Ord. Insulin Human Lispro (Insulin Lispro 100 Unit/Ml 3 Ml Vial) 0 unit SUBCUT QIDACHS [facility]; Protocol Last Admin: 12/05/23 11:51 Dose: 6 unit Documented By: CHIKI Lamotrigine (Lamotrigine 100 Mg Tablet) 100 mg PO BEDTIME [facility] Last Admin: 12/04/23 20:44 Dose: 100 mg Documented By: CAMRYN Magnesium Hydroxide (Milk Of Magnesia 30 Ml Oral.Susp) 30 ml PO DAILY PRN PRN Reason: Constipation Melatonin (Melatonin 3 Mg Tablet) 6 mg PO BEDTIME PRN PRN Reason: Insomnia Metoprolol Succinate (Metoprolol Succinate Er 50 Mg Tab.Er.24h) 50 mg PO DAILY [facility]; Protocol Last Admin: 12/05/23 08:46 Dose: 50 mg Documented By: CHIKI Naloxone HCl (Naloxone Hcl 0.4 Mg/Ml Vial) 0.04 mg IVPUSH Q5M PRN PRN Reason: Excessive sedation or RR < 8 Omeprazole (Omeprazole 40 Mg Capsule.) 40 mg PO DAILY@0630 [facility] Last Admin: 12/05/23 05:47 Dose: 40 mg Documented By: ANTWES Ondansetron HCl (Ondansetron Hcl 4 Mg/2 Ml Vial) 4 mg IVPUSH Q8H PRN PRN Reason: Nausea and Vomiting Ranolazine (Ranolazine 500 Mg Tab.Er.12h) 500 mg PO BID [facility] Last Admin: 12/05/23 08:47 Dose: 500 mg Documented By: CHIKI Sodium Chloride (0.9 % Sodium Chloride Flush 3 Ml Syringe) 3 ml IVFLUSH QSHIFT [facility] Last Admin: 12/05/23 08:47 Dose: 3 ml Documented By: CHIKI Torsemide (Torsemide 20 Mg Tablet) 20 mg PO DAILY [facility]; Protocol Last Admin: 12/05/23 08:50 Dose: 20 mg Documented By: CHIKI Labs 12/04/23 05:20 12/04/23 05:20 Labs: Laboratory Results - last 24 hr 12/04/23 12/04/23 12/05/23 15:59 20:35 07:37 POC Glucose 118 H 160 H 118 H 12/05/23 11:34 POC Glucose 252 H Assessment and Plan (1) Iron deficiency anemia: Status: Acute (2) CHF (congestive heart failure): Status: Acute (3) Anemia: Status: Acute Plan d7 83yo F with CAD s/p PCI on clopidogrel, AF on apixaban, HFpEF, HTN, DM2, SSS s/p PPM, HTN, HLD, GERD presenting with 2d of exertional dyspnea, found to have severe anemia likely from UGIB chronic blood loss/iron deficiency anemia due to likely UGIB - improved after 2u pRBCs transfused - underlying hx of GERD + Gill's esophagus - repleting iron PO - EGD done 12/[address] Ramires showin. 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 No esophagitis nor any lesions. Biopsies not taken. Hiatal hernia mucosa WNL. 2. Minimal gastric erythema 3. Minimal duodenitis - declined colonoscopy - was on clopidogrel + apixaban, which were held; resume apixaban and does not need clopidogrel per Cardiology - H+H stable; repeat in 1 week acute/chronic HFpEF - appears euvolemic; continue torsemide 20 mg daily - TTE 12/01: - The left ventricular systolic function is hyperdynamic. The visually estimated ejection fraction is >70%. - Slight intraventricular and LVOT gradient. Peak resting LVOT gradient 18 mm Hg; no significant increase with Valsalva. - There is mild aortic valve regurgitation. - There is mild tricuspid valve regurgitation. - Cardiology consulted; no further preoperative workup needed - continue metoprolol succinate hypoK - repleted AHRF due to CHF vs COPD/asthma - hypoxia resolved metabolic alkalosis likely due to chronic respiratory acidosis - improved after acetazolamide AF - resumed apixaban; continue metoprolol succinate CAD - discontinued clopidogrel per Cardiology; continue ranolazine, ezetimibite, atorvastatin DM2 - luisito-dose lispro mood disorder - duloxetine + lamotrigine + aripiprazole VTE ppx - apixaban dispo - STR highly recommended due to gross deconditioning, impaired gait pattern, impaired safety, impaired standing balance, muscle weakness, postural Asymmetry; awaiting authorization from [facility]; we have left messages and are still awaiting call-back; PT follow-up assessment still highly recommends STR due to lightheadedness and requiring verbal cues for safety awareness In my clinical judgment, the patient requires continued inpatient hospitalization for the following reasons: placement Total time managing care of this patient today: 35 minutes. Quality Stroke Does the patient have a stroke diagnosis?: No VTE Prior VTE?: No VTE Risk Level:: Medical - moderate - high VTE Device Contraindication: Treatment Not Indicated VTE Drug Contraindication: N/A - Med Ordered
--- NOTE | 2023-12-05 15:45 | MHC.CM.PN ---
DID PEER TO PEER WITH MD FROM [facility], WILL APPEAL . YOEL UPDATED VIA [employer]. CM WILL CONTINUE TO AWAIT DECISION. PT AWARE OF PLAN
[2023-12-05 16:26] LABS: Glucose, Whole Blood 112 mg/dL (60-115)
[2023-12-05 19:58] LABS: Glucose, Whole Blood 167 mg/dL (60-115)
[2023-12-05] MEDS: lamoTRIgine 100 MG TABLET PO (20:40)
[2023-12-05] MEDS: ARIPiprazole 10 MG TABLET PO (20:40)
[2023-12-06] VITALS (8 sets, daily range): BP systolic 109–147; BP diastolic 56–83; PULSE 67–77; RESP 16–18; TEMP 36.1–36.6; O2SAT 93–97
[2023-12-06] MEDS: 0.9 % Sodium Chloride Flush 3 ML SYRINGE IVFLUSH ×4 (00:25→20:54)
[2023-12-06] MEDS: Omeprazole 40 MG CAPSULE.DR PO (06:17)
[2023-12-06 07:25] LABS: Glucose, Whole Blood 137 mg/dL (60-115)
[2023-12-06] MEDS: Atorvastatin Calcium 80 MG TABLET PO (09:21)
[2023-12-06] MEDS: Ferrous Sulfate 324 MG TABLET.DR PO (09:21)
[2023-12-06] MEDS: Apixaban 5 MG TABLET PO ×2 (09:21→20:53)
[2023-12-06] MEDS: DULoxetine HCl 60 MG CAPSULE.DR 120 MG PO (09:21)
[2023-12-06] MEDS: Torsemide 20 MG TABLET PO (09:21)
[2023-12-06] MEDS: Ezetimibe 10 MG TABLET PO (09:21)
[2023-12-06] MEDS: Metoprolol Succinate ER 50 MG TAB.ER.24H PO (09:21)
[2023-12-06] MEDS: Ranolazine 500 MG TAB.ER.12H PO ×2 (09:21→20:53)
--- NOTE | 2023-12-06 09:45 | P.PNIM_ITS ---
Subjective Subjective Date of Service: 12/06/23 Interval History: no dyspnea at rest No hematemesis, hematochezia, or melena. appealing STR denial Review of Systems Review of Systems: Yes all other systems are reviewed and are negative Physical Exam 2 Vital Signs: Vital Signs: Last Vital Signs Temp 97.1 F 12/06/23 07:17 Pulse 71 12/06/23 07:17 Resp 18 12/06/23 07:17 BP 147/83 H 12/06/23 07:17 Pulse Ox 95 12/06/23 07:17 O2 Del Method Room Air 12/06/23 07:17 O2 Flow Rate 2 12/04/23 07:15 BMI result Body Mass Index 28.0 Gen: in no acute distress HEENT: sclera anicteric, moist mucus membranes Neck: supple, no JVD Lungs: clear bilaterally Heart: regular rate and rhythm, no murmurs Abd: soft, non-tender, non-distended Ext: no edema Skin: warm/well-perfused Neuro: alert and oriented x3, no focal findings Psych: appropriate affect Objective Data Active Medications Acetaminophen (Acetaminophen 325 Mg Tablet) 650 mg PO Q6H PRN PRN Reason: Pain, Mild (Pain Scale 1-3), fever or headache Last Admin: 12/01/23 20:19 Dose: 650 mg Documented By: CHRISTOPHE Apixaban (Apixaban 5 Mg Tablet) 5 mg PO BID [facility] Last Admin: 12/06/23 09:21 Dose: 5 mg Documented By: CHIKI Aripiprazole (Aripiprazole 10 Mg Tablet) 10 mg PO BEDTIME [facility] Last Admin: 12/05/23 20:40 Dose: 10 mg Documented By: LYSSA Atorvastatin Calcium (Atorvastatin Calcium 80 Mg Tablet) 80 mg PO DAILY [facility] Last Admin: 12/06/23 09:21 Dose: 80 mg Documented By: CHIKI Benzonatate (Benzonatate 100 Mg Capsule) 100 mg PO TID PRN PRN Reason: Cough Calcium Carbonate (Calcium Carbonate 750 Mg Tab.Chew) 750 mg PO Q4H PRN PRN Reason: Heartburn Duloxetine HCl (Duloxetine Hcl 60 Mg Capsule.Dr) 120 mg PO DAILY [facility] Last Admin: 12/06/23 09:21 Dose: 120 mg Documented By: CHIKI Ezetimibe (Ezetimibe 10 Mg Tablet) 10 mg PO DAILY [facility] Last Admin: 12/06/23 09:21 Dose: 10 mg Documented By: CHIKI Ferrous Sulfate (Ferrous Sulfate 324 Mg Tablet.) 324 mg PO DAILY [facility] Last Admin: 12/06/23 09:21 Dose: 324 mg Documented By: CHIKI Glucose (Glucose Gel 15 Gm Gel..Gram.) 15 gm PO Q15M PRN; Protocol PRN Reason: per Hypoglycemia Standing Ord. Dextrose (D10) 250 mls @ 750 mls/hr IV Q15M PRN; Protocol PRN Reason: per Hypoglycemia Standing Ord. Insulin Human Lispro (Insulin Lispro 100 Unit/Ml 3 Ml Vial) 0 unit SUBCUT QIDACHS [facility]; Protocol Last Admin: 12/06/23 07:41 Dose: Not Given Documented By: CHIKI Non-Admin Reason: No Insulin Coverage Lamotrigine (Lamotrigine 100 Mg Tablet) 100 mg PO BEDTIME [facility] Last Admin: 12/05/23 20:40 Dose: 100 mg Documented By: LYSSA Magnesium Hydroxide (Milk Of Magnesia 30 Ml Oral.Susp) 30 ml PO DAILY PRN PRN Reason: Constipation Melatonin (Melatonin 3 Mg Tablet) 6 mg PO BEDTIME PRN PRN Reason: Insomnia Metoprolol Succinate (Metoprolol Succinate Er 50 Mg Tab.Er.24h) 50 mg PO DAILY [facility]; Protocol Last Admin: 12/06/23 09:21 Dose: 50 mg Documented By: CHIKI Naloxone HCl (Naloxone Hcl 0.4 Mg/Ml Vial) 0.04 mg IVPUSH Q5M PRN PRN Reason: Excessive sedation or RR < 8 Omeprazole (Omeprazole 40 Mg Capsule.) 40 mg PO DAILY@0630 [facility] Last Admin: 12/06/23 06:17 Dose: 40 mg Documented By: LYSSA Ondansetron HCl (Ondansetron Hcl 4 Mg/2 Ml Vial) 4 mg IVPUSH Q8H PRN PRN Reason: Nausea and Vomiting Ranolazine (Ranolazine 500 Mg Tab.Er.12h) 500 mg PO BID [facility] Last Admin: 12/06/23 09:21 Dose: 500 mg Documented By: CHIKI Sodium Chloride (0.9 % Sodium Chloride Flush 3 Ml Syringe) 3 ml IVFLUSH QSHIFT [facility] Last Admin: 12/06/23 09:21 Dose: 3 ml Documented By: CHIKI Torsemide (Torsemide 20 Mg Tablet) 20 mg PO DAILY [facility]; Protocol Last Admin: 12/06/23 09:21 Dose: 20 mg Documented By: CHIKI Labs 12/04/23 05:20 12/04/23 05:20 Labs: Laboratory Results - last 24 hr 12/05/23 12/05/23 12/05/23 11:34 16:03 19:25 POC Glucose 252 H 112 167 H 12/06/23 07:21 POC Glucose 137 H Assessment and Plan (1) Iron deficiency anemia: Status: Acute (2) CHF (congestive heart failure): Status: Acute (3) Anemia: Status: Acute Plan d8 83yo F with CAD s/p PCI on clopidogrel, AF on apixaban, HFpEF, HTN, DM2, SSS s/p PPM, HTN, HLD, GERD presenting with 2d of exertional dyspnea, found to have severe anemia likely from UGIB chronic blood loss/iron deficiency anemia due to likely UGIB - improved after 2u pRBCs transfused - underlying hx of GERD + Gill's esophagus - repleting iron PO - EGD done 12/[address] Ramires showin. 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 No esophagitis nor any lesions. Biopsies not taken. Hiatal hernia mucosa WNL. 2. Minimal gastric erythema 3. Minimal duodenitis - declined colonoscopy - was on clopidogrel + apixaban, which were held; resume apixaban and does not need clopidogrel per Cardiology - H+H stable; repeat in 1 week acute/chronic HFpEF - appears euvolemic; continue torsemide 20 mg daily - TTE 12/01: - The left ventricular systolic function is hyperdynamic. The visually estimated ejection fraction is >70%. - Slight intraventricular and LVOT gradient. Peak resting LVOT gradient 18 mm Hg; no significant increase with Valsalva. - There is mild aortic valve regurgitation. - There is mild tricuspid valve regurgitation. - Cardiology consulted; no further preoperative workup needed - continue metoprolol succinate hypoK - repleted AHRF due to CHF vs COPD/asthma - hypoxia resolved metabolic alkalosis likely due to chronic respiratory acidosis - improved after acetazolamide AF - resumed apixaban; continue metoprolol succinate CAD - discontinued clopidogrel per Cardiology; continue ranolazine, ezetimibite, atorvastatin DM2 - luisito-dose lispro mood disorder - duloxetine + lamotrigine + aripiprazole VTE ppx - apixaban dispo - STR highly recommended due to gross deconditioning, impaired gait pattern, impaired safety, impaired standing balance, muscle weakness, postural Asymmetry; PT follow-up assessment still highly recommends STR due to lightheadedness and requiring verbal cues for safety awareness - insurance denied STR and we are submitting appeal. Pt lives with with advanced dementia and would benefit from STR In my clinical judgment, the patient requires continued inpatient hospitalization for the following reasons: placement Total time managing care of this patient today: 35 minutes. Quality Stroke Does the patient have a stroke diagnosis?: No VTE Prior VTE?: No VTE Risk Level:: Medical - moderate - high VTE Device Contraindication: Treatment Not Indicated VTE Drug Contraindication: N/A - Med Ordered
--- NOTE | 2023-12-06 10:40 | MHC.CM.PN ---
APPEAL PROCESS UNDERWAY WITH [facility]. MEDICAL RECORD FAXED TO [phone] REQUEST ID # [id number], PT AWARE.
[2023-12-06 11:10] LABS: Glucose, Whole Blood 284 mg/dL (60-115)
[2023-12-06] MEDS: Insulin Lispro 100 UNIT/ML 3 ML VIAL SUBCUT ×2 (11:33→20:53)
[2023-12-06 16:22] LABS: Glucose, Whole Blood 100 mg/dL (60-115)
[2023-12-06 20:29] LABS: Glucose, Whole Blood 172 mg/dL (60-115)
[2023-12-06] MEDS: lamoTRIgine 100 MG TABLET PO (20:53)
[2023-12-06] MEDS: ARIPiprazole 10 MG TABLET PO (20:53)
[2023-12-07] VITALS (9 sets, daily range): BP systolic 92–150; BP diastolic 53–69; PULSE 70–74; RESP 16–18; TEMP 36.1–36.8; O2SAT 95–98
[2023-12-07] MEDS: Omeprazole 40 MG CAPSULE.DR PO (05:32)
[2023-12-07 07:15] LABS: Glucose, Whole Blood 146 mg/dL (60-115)
[2023-12-07] MEDS: DULoxetine HCl 60 MG CAPSULE.DR 120 MG PO (09:24)
[2023-12-07] MEDS: Metoprolol Succinate ER 50 MG TAB.ER.24H PO (09:25)
[2023-12-07] MEDS: Ezetimibe 10 MG TABLET PO (09:27)
[2023-12-07] MEDS: Atorvastatin Calcium 80 MG TABLET PO (09:27)
[2023-12-07] MEDS: Ferrous Sulfate 324 MG TABLET.DR PO (09:27)
[2023-12-07] MEDS: 0.9 % Sodium Chloride Flush 3 ML SYRINGE IVFLUSH ×3 (09:27→20:24)
[2023-12-07] MEDS: Apixaban 5 MG TABLET PO ×2 (09:27→20:24)
[2023-12-07] MEDS: Torsemide 20 MG TABLET PO (09:27)
[2023-12-07] MEDS: Ranolazine 500 MG TAB.ER.12H PO ×2 (09:27→20:24)
[2023-12-07 09:33] LABS: Hematocrit 40.3 % (37.0-47.0); Hemoglobin 11.7 g/dl (12.0-16.0)
--- NOTE | 2023-12-07 09:35 | HO.PM.IMPN ---
Subjective Subjective Date of Service: 12/07/23 Interval History: some exertional dyspnea; otherwise feels well; no hematemesis, hematochezia, or melena. Review of Systems Review of Systems: Yes all other systems are reviewed and are negative Physical Exam Vital Signs: Vital Signs: Last Vital Signs Temp 97.6 F 12/07/23 07:41 Pulse 71 12/07/23 07:41 Resp 17 12/07/23 07:41 BP 150/69 H 12/07/23 07:41 Pulse Ox 96 12/07/23 07:41 O2 Del Method Room Air 12/07/23 07:41 O2 Flow Rate 2 12/04/23 07:15 BMI result Body Mass Index 28.0 Gen: in no acute distress HEENT: sclera anicteric, moist mucus membranes Neck: supple, no JVD Lungs: clear bilaterally Heart: regular rate and rhythm, no murmurs Abd: soft, non-tender, non-distended Ext: no edema Skin: warm/well-perfused Neuro: alert and oriented x3, no focal findings Psych: appropriate affect Objective Data Active Medications Acetaminophen (Acetaminophen 325 Mg Tablet) 650 mg PO Q6H PRN PRN Reason: Pain, Mild (Pain Scale 1-3), fever or headache Last Admin: 12/01/23 20:19 Dose: 650 mg Documented By: CHRISTOPHE Apixaban (Apixaban 5 Mg Tablet) 5 mg PO BID [facility] Last Admin: 12/07/23 09:27 Dose: 5 mg Documented By: GAVIN Aripiprazole (Aripiprazole 10 Mg Tablet) 10 mg PO BEDTIME [facility] Last Admin: 12/06/23 20:53 Dose: 10 mg Documented By: MARTHA Atorvastatin Calcium (Atorvastatin Calcium 80 Mg Tablet) 80 mg PO DAILY [facility] Last Admin: 12/07/23 09:27 Dose: 80 mg Documented By: GAVIN Benzonatate (Benzonatate 100 Mg Capsule) 100 mg PO TID PRN PRN Reason: Cough Calcium Carbonate (Calcium Carbonate 750 Mg Tab.Chew) 750 mg PO Q4H PRN PRN Reason: Heartburn Duloxetine HCl (Duloxetine Hcl 60 Mg Capsule.Dr) 120 mg PO DAILY [facility] Last Admin: 12/07/23 09:24 Dose: 120 mg Documented By: GAVIN Ezetimibe (Ezetimibe 10 Mg Tablet) 10 mg PO DAILY [facility] Last Admin: 12/07/23 09:27 Dose: 10 mg Documented By: GAVIN Ferrous Sulfate (Ferrous Sulfate 324 Mg Tablet.) 324 mg PO DAILY [facility] Last Admin: 12/07/23 09:27 Dose: 324 mg Documented By: GAVIN Glucose (Glucose Gel 15 Gm Gel..Gram.) 15 gm PO Q15M PRN; Protocol PRN Reason: per Hypoglycemia Standing Ord. Dextrose (D10) 250 mls @ 750 mls/hr IV Q15M PRN; Protocol PRN Reason: per Hypoglycemia Standing Ord. Insulin Human Lispro (Insulin Lispro 100 Unit/Ml 3 Ml Vial) 0 unit SUBCUT QIDACHS [facility]; Protocol Last Admin: 12/07/23 09:31 Dose: Not Given Documented By: GAVIN Non-Admin Reason: No Insulin Coverage Lamotrigine (Lamotrigine 100 Mg Tablet) 100 mg PO BEDTIME [facility] Last Admin: 12/06/23 20:53 Dose: 100 mg Documented By: MARTHA Magnesium Hydroxide (Milk Of Magnesia 30 Ml Oral.Susp) 30 ml PO DAILY PRN PRN Reason: Constipation Melatonin (Melatonin 3 Mg Tablet) 6 mg PO BEDTIME PRN PRN Reason: Insomnia Metoprolol Succinate (Metoprolol Succinate Er 50 Mg Tab.Er.24h) 50 mg PO DAILY [facility]; Protocol Last Admin: 12/07/23 09:25 Dose: 50 mg Documented By: GAVIN Naloxone HCl (Naloxone Hcl 0.4 Mg/Ml Vial) 0.04 mg IVPUSH Q5M PRN PRN Reason: Excessive sedation or RR < 8 Omeprazole (Omeprazole 40 Mg Capsule.) 40 mg PO DAILY@0630 [facility] Last Admin: 12/07/23 05:32 Dose: 40 mg Documented By: MARTHA Ondansetron HCl (Ondansetron Hcl 4 Mg/2 Ml Vial) 4 mg IVPUSH Q8H PRN PRN Reason: Nausea and Vomiting Ranolazine (Ranolazine 500 Mg Tab.Er.12h) 500 mg PO BID [facility] Last Admin: 12/07/23 09:27 Dose: 500 mg Documented By: GAVIN Sodium Chloride (0.9 % Sodium Chloride Flush 3 Ml Syringe) 3 ml IVFLUSH QSHIFT [facility] Last Admin: 12/07/23 09:27 Dose: 3 ml Documented By: GAVIN Torsemide (Torsemide 20 Mg Tablet) 20 mg PO DAILY [facility]; Protocol Last Admin: 12/07/23 09:27 Dose: 20 mg Documented By: GAVIN Labs 12/07/23 08:29 12/04/23 05:20 Labs: Laboratory Results - last 24 hr 12/06/23 12/06/23 12/06/23 11:02 16:18 20:24 POC Glucose 284 H 100 172 H 12/07/23 07:09 POC Glucose 146 H Assessment and Plan (1) Iron deficiency anemia: Status: Acute (2) CHF (congestive heart failure): Status: Acute (3) Anemia: Status: Acute Plan d8 83yo F with CAD s/p PCI on clopidogrel, AF on apixaban, HFpEF, HTN, DM2, SSS s/p PPM, HTN, HLD, GERD presenting with 2d of exertional dyspnea, found to have severe anemia likely from UGIB chronic blood loss/iron deficiency anemia due to likely UGIB - improved after 2u pRBCs transfused - underlying hx of GERD + Gill's esophagus - repleting iron PO - EGD done 12/[address] Ramires showin. 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 No esophagitis nor any lesions. Biopsies not taken. Hiatal hernia mucosa WNL. 2. Minimal gastric erythema 3. Minimal duodenitis - declined colonoscopy - was on clopidogrel + apixaban, which were held; resume apixaban and does not need clopidogrel per Cardiology - H+H stable, 11.7 today; repeat in 1 week acute/chronic HFpEF - appears euvolemic; continue torsemide 20 mg daily - TTE 12/01: - The left ventricular systolic function is hyperdynamic. The visually estimated ejection fraction is >70%. - Slight intraventricular and LVOT gradient. Peak resting LVOT gradient 18 mm Hg; no significant increase with Valsalva. - There is mild aortic valve regurgitation. - There is mild tricuspid valve regurgitation. - Cardiology consulted; no further preoperative workup needed - continue metoprolol succinate hypoK - repleted AHRF due to CHF vs COPD/asthma - hypoxia resolved metabolic alkalosis likely due to chronic respiratory acidosis - improved after acetazolamide AF - resumed apixaban; continue metoprolol succinate CAD - discontinued clopidogrel per Cardiology; continue ranolazine, ezetimibite, atorvastatin DM2 - luisito-dose lispro mood disorder - duloxetine + lamotrigine + aripiprazole VTE ppx - apixaban dispo - STR highly recommended due to gross deconditioning, impaired gait pattern, impaired safety, impaired standing balance, muscle weakness, postural Asymmetry; PT follow-up assessment still highly recommends STR due to lightheadedness and requiring verbal cues for safety awareness - insurance denied STR and we are submitting appeal. Pt lives with with advanced dementia and would benefit from STR In my clinical judgment, the patient requires continued inpatient hospitalization for the following reasons: placement Total time managing care of this patient today: 35 minutes. Quality Stroke Does the patient have a stroke diagnosis?: No VTE Prior VTE?: No VTE Risk Level:: Medical - moderate - high VTE Device Contraindication: Treatment Not Indicated VTE Drug Contraindication: N/A - Med Ordered
[2023-12-07 11:21] LABS: Glucose, Whole Blood 286 mg/dL (60-115)
[2023-12-07] MEDS: Insulin Lispro 100 UNIT/ML 3 ML VIAL SUBCUT ×3 (11:41→20:24)
[2023-12-07 16:07] LABS: Glucose, Whole Blood 152 mg/dL (60-115)
[2023-12-07] MEDS: Albuterol Sulfate (0.083%) 2.5 MG/3 ML VIAL.NEB INHALE (17:37)
[2023-12-07] MEDS: Furosemide 40 MG/4 ML VIAL IVPUSH (17:37)
[2023-12-07 20:05] LABS: Glucose, Whole Blood 184 mg/dL (60-115)
[2023-12-07] MEDS: ARIPiprazole 10 MG TABLET PO (20:24)
[2023-12-07] MEDS: lamoTRIgine 100 MG TABLET PO (20:24)
[2023-12-08 04:00] VITALS: BP 120/59; PULSE 70; RESP 16; TEMP 36; O2SAT 94
[2023-12-08] MEDS: Omeprazole 40 MG CAPSULE.DR PO (05:34)
[2023-12-08 07:16] LABS: Glucose, Whole Blood 149 mg/dL (60-115)
[2023-12-08 07:33] VITALS: BP 117/56; PULSE 70; RESP 16; TEMP 36.7; O2SAT 92
[2023-12-08] MEDS: Apixaban 5 MG TABLET PO ×2 (08:31→21:08)
[2023-12-08] MEDS: Ranolazine 500 MG TAB.ER.12H PO ×2 (08:31→21:08)
[2023-12-08] MEDS: Metoprolol Succinate ER 50 MG TAB.ER.24H PO (08:31)
[2023-12-08] MEDS: Torsemide 20 MG TABLET PO (08:31)
[2023-12-08] MEDS: Ferrous Sulfate 324 MG TABLET.DR PO (08:31)
[2023-12-08] MEDS: Atorvastatin Calcium 80 MG TABLET PO (08:31)
[2023-12-08] MEDS: Ezetimibe 10 MG TABLET PO (08:31)
[2023-12-08] MEDS: DULoxetine HCl 60 MG CAPSULE.DR 120 MG PO (08:32)
[2023-12-08] MEDS: 0.9 % Sodium Chloride Flush 3 ML SYRINGE IVFLUSH ×3 (08:36→21:08)
--- NOTE | 2023-12-08 09:56 | HO.PM.IMPN ---
Subjective Subjective Date of Service: 12/08/23 Interval History: c/o dyspnea with any exertion no chest pain Review of Systems Review of Systems: Yes all other systems are reviewed and are negative Physical Exam Vital Signs: Vital Signs: Last Vital Signs Temp 98.0 F 12/08/23 07:33 Pulse 70 12/08/23 07:33 Resp 16 12/08/23 07:33 BP 117/56 L 12/08/23 07:33 Pulse Ox 92 12/08/23 07:33 O2 Del Method Room Air 12/08/23 07:33 O2 Flow Rate 2 12/04/23 07:15 BMI result Body Mass Index 28.0 Gen: in no acute distress HEENT: sclera anicteric, moist mucus membranes Neck: supple, no JVD Lungs: diminished Heart: regular rate and rhythm, no murmurs Abd: soft, non-tender, non-distended Ext: no edema Skin: warm/well-perfused Neuro: alert and oriented x3, no focal findings Psych: appropriate affect Objective Data Active Medications Acetaminophen (Acetaminophen 325 Mg Tablet) 650 mg PO Q6H PRN PRN Reason: Pain, Mild (Pain Scale 1-3), fever or headache Last Admin: 12/01/23 20:19 Dose: 650 mg Documented By: CHRISTOPHE Apixaban (Apixaban 5 Mg Tablet) 5 mg PO BID [facility] Last Admin: 12/08/23 08:31 Dose: 5 mg Documented By: GAVIN Aripiprazole (Aripiprazole 10 Mg Tablet) 10 mg PO BEDTIME [facility] Last Admin: 12/07/23 20:24 Dose: 10 mg Documented By: MARTHA Atorvastatin Calcium (Atorvastatin Calcium 80 Mg Tablet) 80 mg PO DAILY [facility] Last Admin: 12/08/23 08:31 Dose: 80 mg Documented By: GAVIN Benzonatate (Benzonatate 100 Mg Capsule) 100 mg PO TID PRN PRN Reason: Cough Calcium Carbonate (Calcium Carbonate 750 Mg Tab.Chew) 750 mg PO Q4H PRN PRN Reason: Heartburn Duloxetine HCl (Duloxetine Hcl 60 Mg Capsule.Dr) 120 mg PO DAILY [facility] Last Admin: 12/08/23 08:32 Dose: 120 mg Documented By: GAVIN Ezetimibe (Ezetimibe 10 Mg Tablet) 10 mg PO DAILY [facility] Last Admin: 12/08/23 08:31 Dose: 10 mg Documented By: GAVIN Ferrous Sulfate (Ferrous Sulfate 324 Mg Tablet.) 324 mg PO DAILY [facility] Last Admin: 12/08/23 08:31 Dose: 324 mg Documented By: GAVIN Glucose (Glucose Gel 15 Gm Gel..Gram.) 15 gm PO Q15M PRN; Protocol PRN Reason: per Hypoglycemia Standing Ord. Dextrose (D10) 250 mls @ 750 mls/hr IV Q15M PRN; Protocol PRN Reason: per Hypoglycemia Standing Ord. Insulin Human Lispro (Insulin Lispro 100 Unit/Ml 3 Ml Vial) 0 unit SUBCUT QIDACHS [facility]; Protocol Last Admin: 12/08/23 08:35 Dose: Not Given Documented By: GAVIN Non-Admin Reason: No Insulin Coverage Lamotrigine (Lamotrigine 100 Mg Tablet) 100 mg PO BEDTIME [facility] Last Admin: 12/07/23 20:24 Dose: 100 mg Documented By: MARTHA Magnesium Hydroxide (Milk Of Magnesia 30 Ml Oral.Susp) 30 ml PO DAILY PRN PRN Reason: Constipation Melatonin (Melatonin 3 Mg Tablet) 6 mg PO BEDTIME PRN PRN Reason: Insomnia Metoprolol Succinate (Metoprolol Succinate Er 50 Mg Tab.Er.24h) 50 mg PO DAILY [facility]; Protocol Last Admin: 12/08/23 08:31 Dose: 50 mg Documented By: GAVIN Naloxone HCl (Naloxone Hcl 0.4 Mg/Ml Vial) 0.04 mg IVPUSH Q5M PRN PRN Reason: Excessive sedation or RR < 8 Omeprazole (Omeprazole 40 Mg Capsule.) 40 mg PO DAILY@0630 [facility] Last Admin: 12/08/23 05:34 Dose: 40 mg Documented By: MARTHA Ondansetron HCl (Ondansetron Hcl 4 Mg/2 Ml Vial) 4 mg IVPUSH Q8H PRN PRN Reason: Nausea and Vomiting Ranolazine (Ranolazine 500 Mg Tab.Er.12h) 500 mg PO BID [facility] Last Admin: 12/08/23 08:31 Dose: 500 mg Documented By: GAVIN Sodium Chloride (0.9 % Sodium Chloride Flush 3 Ml Syringe) 3 ml IVFLUSH QSHIFT [facility] Last Admin: 12/08/23 08:36 Dose: 3 ml Documented By: GAVIN Torsemide (Torsemide 20 Mg Tablet) 20 mg PO DAILY [facility]; Protocol Last Admin: 12/08/23 08:31 Dose: 20 mg Documented By: GAVIN Labs 12/07/23 08:29 12/04/23 05:20 Labs: Laboratory Results - last 24 hr 12/07/23 12/07/23 12/07/23 11:05 15:48 19:57 POC Glucose 286 H 152 H 184 H 12/08/23 07:10 POC Glucose 149 H Assessment and Plan (1) Iron deficiency anemia: Status: Acute (2) CHF (congestive heart failure): Status: Acute (3) Anemia: Status: Acute Plan d9 83yo F with CAD s/p PCI on clopidogrel, AF on apixaban, HFpEF, HTN, DM2, SSS s/p PPM, HTN, HLD, GERD presenting with 2d of exertional dyspnea, found to have severe anemia likely from UGIB chronic blood loss/iron deficiency anemia due to likely UGIB - improved after 2u pRBCs transfused - underlying hx of GERD + Gill's esophagus - repleting iron PO - EGD done 12/[address] Ramires showin. 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 No esophagitis nor any lesions. Biopsies not taken. Hiatal hernia mucosa WNL. 2. Minimal gastric erythema 3. Minimal duodenitis - declined colonoscopy - was on clopidogrel + apixaban, which were held; resume apixaban and does not need clopidogrel per Cardiology - H+H stable, 11.7 on 12/07/23; repeat in 1 week acute/chronic HFpEF - continue torsemide 20 mg daily; got 1 dose of IV furosemide yesterday; check CXR now given exertional dyspnea - TTE 12/01: - The left ventricular systolic function is hyperdynamic. The visually estimated ejection fraction is >70%. - Slight intraventricular and LVOT gradient. Peak resting LVOT gradient 18 mm Hg; no significant increase with Valsalva. - There is mild aortic valve regurgitation. - There is mild tricuspid valve regurgitation. - Cardiology consulted; no further preoperative workup needed - continue metoprolol succinate hypoK - repleted AHRF due to CHF vs COPD/asthma - hypoxia resolved metabolic alkalosis likely due to chronic respiratory acidosis - improved after acetazolamide AF - resumed apixaban; continue metoprolol succinate CAD - discontinued clopidogrel per Cardiology; continue ranolazine, ezetimibite, atorvastatin DM2 - luisito-dose lispro mood disorder - duloxetine + lamotrigine + aripiprazole VTE ppx - apixaban dispo - STR highly recommended due to gross deconditioning, impaired gait pattern, impaired safety, impaired standing balance, muscle weakness, postural Asymmetry; PT follow-up assessment still highly recommends STR due to lightheadedness and requiring verbal cues for safety awareness - insurance denied STR and we are submitting appeal. Pt lives with with advanced dementia and would benefit from STR In my clinical judgment, the patient requires continued inpatient hospitalization for the following reasons: placement Total time managing care of this patient today: 35 minutes. Quality Stroke Does the patient have a stroke diagnosis?: No VTE Prior VTE?: No VTE Risk Level:: Medical - moderate - high VTE Device Contraindication: Treatment Not Indicated VTE Drug Contraindication: N/A - Med Ordered
[2023-12-08 10:47] LABS: Anion Gap 12 (12-20); Blood Urea Nitrogen 19 mg/dL (9-16); Calcium 9.7 mg/dL (8.4-10.2); Carbon Dioxide 32 mmol/L (22-29); Chloride 99 mmol/L (96-108); Creatinine Clr Calc Pharmacy 51.9; Estimated Glomerular Filt Rate > 60; Glucose Random 230 mg/dL (60-115); Potassium 3.6 mmol/L (3.3-5.1); Sodium 139 mmol/L (135-145)
[2023-12-08 10:53] LABS: B Type Natriuretic Peptide 361 pg/mL (<100)
[2023-12-08 11:19] LABS: Glucose, Whole Blood 234 mg/dL (60-115)
[2023-12-08] MEDS: Insulin Lispro 100 UNIT/ML 3 ML VIAL SUBCUT ×2 (11:27→21:07)
[2023-12-08 12:00] VITALS: BP 135/64; PULSE 70; RESP 18; TEMP 36.7; O2SAT 96
[2023-12-08 13:10] VITALS: O2SAT 94
[2023-12-08 14:48] VITALS: BP 136/67; PULSE 71; RESP 18; TEMP 36.6; O2SAT 97
[2023-12-08 16:19] LABS: Glucose, Whole Blood 128 mg/dL (60-115)
[2023-12-08 19:51] VITALS: BP 124/67; PULSE 70; RESP 18; TEMP 36.4; O2SAT 93
[2023-12-08 20:38] LABS: Glucose, Whole Blood 198 mg/dL (60-115)
[2023-12-08] MEDS: ARIPiprazole 10 MG TABLET PO (21:08)
[2023-12-08] MEDS: lamoTRIgine 100 MG TABLET PO (21:08)
[2023-12-09] VITALS: BP 126/70; PULSE 72; RESP 18; TEMP 36.4; O2SAT 98
[2023-12-09 03:58] VITALS: BP 119/65; PULSE 70; RESP 18; TEMP 36.3; O2SAT 95
[2023-12-09] MEDS: Omeprazole 40 MG CAPSULE.DR PO (05:31)
[2023-12-09 07:26] LABS: Glucose, Whole Blood 150 mg/dL (60-115)
[2023-12-09 07:28] VITALS: BP 128/72; PULSE 76; RESP 18; TEMP 36.3; O2SAT 91
[2023-12-09] MEDS: Atorvastatin Calcium 80 MG TABLET PO (08:46)
[2023-12-09] MEDS: Ranolazine 500 MG TAB.ER.12H PO (08:46)
[2023-12-09] MEDS: Torsemide 20 MG TABLET PO (08:46)
[2023-12-09] MEDS: Apixaban 5 MG TABLET PO (08:46)
[2023-12-09] MEDS: Metoprolol Succinate ER 50 MG TAB.ER.24H PO (08:46)
[2023-12-09] MEDS: Ferrous Sulfate 324 MG TABLET.DR PO (08:46)
[2023-12-09] MEDS: Ezetimibe 10 MG TABLET PO (08:46)
[2023-12-09] MEDS: DULoxetine HCl 60 MG CAPSULE.DR 120 MG PO (08:46)
[2023-12-09 09:02] VITALS: PULSE 73; O2SAT 94
[2023-12-09 11:29] LABS: Glucose, Whole Blood 257 mg/dL (60-115)
[2023-12-09] MEDS: Insulin Lispro 100 UNIT/ML 3 ML VIAL SUBCUT (11:35)
--- NOTE | 2023-12-09 11:50 | MHC.CM.PN ---
Addendum entered by Kristin Andersen 12/09/23 12:21: CM MET WITH PT TO DISCUSS DC PLANS PT IS AWARE OF BLS TRANSPORT TIME SHE REPORTS SHE WILL UPDATE FRIENDS/FAMILY Original Note: [facility] HAS INDICATED THEY HAVE AUTH AND WOULD LIKE TO TAKE PT EARLY POSSIBLE NEXT AVAILABLE BLS IS 1500 HOURS MD AWARE
--- NOTE | 2023-12-09 14:11 | PM.DS ---
DS: Providers Provider Date of Service: 12/09/23 Date of admission: 11/29/23 16:23 Date of discharge: 12/09/23 Primary care physician: Yobany Weinberg MD Consults: 11/29/23 16:27 Consult to Gastroenterology Routine Consulting Provider: Jatin Ramires Reason for consultation: Symptomatic anemia H&H 7.1/26.4, ?GI bleed 12/01/23 09:30 Consult to Cardiology Routine Consulting Provider: [facility] Reason for consultation: chf/preop Has provider been notified: No DS: Diagnosis Discharge Diagnosis (1) Iron deficiency anemia: Status: Acute (2) CHF (congestive heart failure): Status: Acute (3) Anemia: Status: Acute DS: Summary Hospital Course Hospital Course: From the history and physical by the admitting hospitalist, JINA Hogan, 11/29/23: Pt is an 83-year-old female with a PMH significant for?CAD, NSTEMI on Plavix, AFib on Eliquis, unspecified CHF, HTN, qts-izscoso-kmeimplvz type 2 diabetes, SSS s/p pacemaker in place, HTN, HLD, and GERD who presents to the ED with?SOB, MACIAS, and malaise x2 days. Patient reports symptoms began shortly after receiving a COVID booster shot on Saturday. Initially felt sore in both of her upper arms, but then began experiencing shortness a breath, dyspnea, and unsteadiness on her feet especially with exertion. Also perhaps has had worsening lightheadedness and dizziness, though patient admits these symptoms are chronic and is difficult for her to say. Has been experiencing dark colored stools for a long time though unable to further specify length. Denies any nausea, vomiting, abdominal pain. No chest pain/pressure or palpitations. Denies any GERD like symptoms. No hematemesis, hemoptysis, or hematochezia. Denies any NSAID use. No recent falls at home. Denies lower leg edema. Follows with [facility]. In the ED pt was tachypneic up to 28 and soft BP as low as 111/51. Labs were significant for microcytic anemia of 7.1/26.4 and MCV 69, BNP 726, and procalcitonin of 0.13. No leukocytosis No significant electrolyte abnormalities. Renal function and hepatic function baseline. Stool negative for occult blood. UA with small amount of leukocyte esterase and wbc's 21-50, but no bacteria seen. Tested negative for flu, COVID, RSV. CXR showed no acute cardiopulmonary. EKG demonstrated atrial paced rhythm with prolonged AV conduction with RBBB, but no significant ST elevations or depressions. Pt was treated with furosemide 20 mg IV, Protonix, and transfused 1 unit PRBCs. Pt will be admitted to the hospital for treatment and further evaluation of symptomatic anemia likely from UGIB. 83yo F with CAD s/p PCI on clopidogrel, AF on apixaban, HFpEF, HTN, DM2, SSS s/p PPM, HTN, HLD, and GERD presenting with 2d of exertional dyspnea, found to have severe anemia likely from UGIB. She was admitted to the medical-surgical unit. Hospital course by problem: chronic blood loss/iron deficiency anemia due to likely UGIB - improved after 2u pRBCs transfused - underlying hx of GERD + Glil's esophagus - EGD done 12/02/[address] Jatin Ramires showed: 1. 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 No esophagitis nor any lesions. Biopsies not taken. Hiatal hernia mucosa WNL. 2. Minimal gastric erythema 3. Minimal duodenitis - declined colonoscopy - was on clopidogrel + apixaban, which were held; resumed apixaban and does not need clopidogrel per Cardiology - H+H stable [11.2 at discharge]; repeat in 1 week acute/chronic HFpEF - diuresed to euvolemia with IV furosemide and IV acetazolamide and restarted home torsemide - TTE 12/02/23: - The left ventricular systolic function is hyperdynamic. The visually estimated ejection fraction is >70%. - Slight intraventricular and LVOT gradient. Peak resting LVOT gradient 18 mm Hg; no significant increase with Valsalva. - There is mild aortic valve regurgitation. - There is mild tricuspid valve regurgitation. - Cardiology consulted; no further preoperative workup needed acute hypoxic respiratory failure due to CHF - hypoxia resolved and did not qualify for home oxygen atrial fibrillation - resumed apixabad as above CAD - discontinued clopidogrel per Cardiology She was discharged to [facility] for short-term rehabilitation and should have Cardiology follow-up in 2 weeks and Primary Care follow up 1 week after discharge from [facility]. The anticipated length of stay at the SNF is less than 30 days. Time Attestation Discharge Coordination Time (in mins): 35 Quality: Safe Use of Opioids Does Pt have an Active Cancer Diagnosis on the Problem List?: No Quality: Stroke Does the patient have a stroke diagnosis?: No Physical Exam Vital Signs: Vital Signs: Last Vital Signs Temp 97.4 F 12/09/23 07:28 Pulse 73 12/09/23 09:02 Resp 18 12/09/23 07:28 BP 128/72 12/09/23 07:28 Pulse Ox 94 12/09/23 09:02 O2 Del Method Room Air 12/09/23 13:33 O2 Flow Rate 2 12/04/23 07:15 BMI result Body Mass Index 28.0 Const: Other: Awake alert no acute distress Resp: Other: Clear to auscultation bilaterally no rales rhonchi or wheezes Cardio: Other: No S4; positive S1-S2; no S3 murmurs rubs or gallops GI: Other: Soft nontender nondistended normoactive bowel sounds Extrem: Other: No edema bilaterally DS: Data Data Completed and Pending Labs on day of discharge: Laboratory Results - last 24 hr 12/08/23 12/08/23 12/09/23 16:04 20:32 07:16 POC Glucose 128 H 198 H 150 H 12/09/23 11:25 POC Glucose 257 H Discharge Plan Discharge Anticipated Discharge Date/Time: 12/04/23 10:59 Patient Disposition: Xfer SNF Discharge Diagnosis: chronic blood loss/iron deficiency anemia hypoxia [resolved] due to CHF exacerbation atrial fibrillation coronary artery disease Referrals: [facility] [Outside] - 1 Week (TRANSFER FOR SHORT TERM REHAB) Yobany Weinberg MD [Primary Care Provider] - 1 Week Bruce Sharpe MD [Physician] - 2 Weeks Discharge Medications: New ferrous sulfate 324 mg (65 mg iron) Tablet,Delayed Release (Dr/Ec) 324 mg PO DAILY Qty: 30 0RF Continued metoprolol succinate 100 mg tablet extended release 24 hr 50 mg PO DAILY glipizide 5 mg tablet extended release 24hr 5 mg PO DAILY torsemide 10 mg tablet 20 mg PO DAILY pantoprazole 40 mg tablet,delayed release (DR/EC) 40 mg PO BID lamotrigine 100 mg tablet 100 mg PO BEDTIME ezetimibe 10 mg tablet 10 mg PO DAILY aripiprazole 10 mg tablet 10 mg PO BEDTIME rosuvastatin 40 mg tablet 40 mg PO DAILY duloxetine 60 mg capsule,delayed release(DR/EC) 120 mg PO DAILY ranolazine 500 mg tablet extended release 12 hr 500 mg PO BID Januvia 100 mg tablet 100 mg PO DAILY Eliquis 5 mg tablet 5 mg PO BID Jardiance 25 mg tablet 25 mg PO DAILY Discontinued clopidogrel 75 mg tablet 75 mg PO DAILY Discharge Orders: Discharge Order (Routine); Ordered 12/09/23 Ordered By: Tom Katz Diet: Advance to usual diet Activity on Discharge: As tolerated Stand Alone Forms: Patient Portal Discharge page Print Language: Lithuanian Other Ambulatory Orders: Hemoglobin and Hematocrit (Routine) Timeframe: 1 Week Facility: [facility] - Location: Laboratory Ordered By: Adolfo Mayfield Care Plan Goals: safe anticoagulation cardiovascular health Health Concerns: chronic blood loss/iron deficiency anemia hypoxia [resolved] due to CHF exacerbation atrial fibrillation coronary artery disease Plan of Treatment: STOP clopidogrel [Plavix] CONTINUE apixaban [Eliquis] take ferrous sulfate [iron] 325 mg once daily repeat hemoglobin/hematocrit in 1 week transfer to short-term rehab at [facility] Please follow up with your primary care doctor within 1 week of discharge from short-term rehabilitation. Return to the hospital if you experience recurrent or worsening symptoms. Assessment: See Discharge Summary.
[2023-12-09 15:12] VITALS: BP 117/61; PULSE 69; RESP 16; TEMP 36.1; O2SAT 98
== END 2023-12-09 15:40 | disposition skilled nursing facility (03) | DRG 377 ==
LOC: HO.ED 10:38 → HO.EDOVER 16:29 → HO.S3 16:49
PROVIDERS: Family Medicine; Hospitalist; Internal Medicine; Admitting Provider Student in an Organized Health Care Education/Training Program; Emergency Provider Emergency Medicine; PCP Internal Medicine; Visit Provider Hospitalist
PROC: 0DJ08ZZ Inspection of Upper Intestinal Tract, Via Natural or Artificial Opening Endoscopic (ICD-10-PCS; CPT 43235; principal; 2023-12-02 14:30)
DX: K29.81 Duodenitis with bleeding (principal); I50.33 Acute on chronic diastolic (congestive) heart failure; J96.01 Acute respiratory failure with hypoxia; E87.4 Mixed disorder of acid-base balance; I25.10 Atherosclerotic heart disease of native coronary artery without angina pectoris; I49.5 Sick sinus syndrome; D50.0 Iron deficiency anemia secondary to blood loss (chronic); F39 Unspecified mood [affective] disorder; K22.70 Barrett's esophagus without dysplasia; K44.9 Diaphragmatic hernia without obstruction or gangrene; E87.6 Hypokalemia; J44.9 Chronic obstructive pulmonary disease, unspecified; Z20.822 Contact with and (suspected) exposure to COVID-19; I48.0 Paroxysmal atrial fibrillation; Z66 Do not resuscitate; E11.9 Type 2 diabetes mellitus without complications; I25.2 Old myocardial infarction; Z95.0 Presence of cardiac pacemaker; Z87.74 Personal history of (corrected) congenital malformations of heart and circulatory system; Z79.01 Long term (current) use of anticoagulants; Z79.02 Long term (current) use of antithrombotics/antiplatelets; Z79.84 Long term (current) use of oral hypoglycemic drugs; Z79.899 Other long term (current) drug therapy
CPT/HCPCS: 0241U; 36415; 71045; 80048; 80076; 81001; 82272; 82803; 82947; 83540; 83690; 83735; 83880; 84145; 84484; 85014; 85018; 85025; 85027; 85610; 86140; 86850; 86900; 86901; 86923; 87086; 93005; 93306; 94640; 97110; 97116; 97162; 99285; J1940; J2470; J2704; J3480; J7120; P9016; Q9957

== ENCOUNTER 2023-11-29 16:23 | Outpatient (BNV) | payer MEDICARE, SELFPAY | END 2023-12-02 07:00 | PROVIDERS: Admitting Provider Student in an Organized Health Care Education/Training Program; Emergency Provider Emergency Medicine; PCP Internal Medicine; Visit Provider Internal Medicine | DX: I35.1 Nonrheumatic aortic (valve) insufficiency (principal); I34.0 Nonrheumatic mitral (valve) insufficiency; I36.1 Nonrheumatic tricuspid (valve) insufficiency | CPT/HCPCS: 93306 ==

== ENCOUNTER → 2023-11-29 16:23 | Outpatient (BNV) | payer OTHER, SELFPAY | PROVIDERS: Admitting Provider Student in an Organized Health Care Education/Training Program; Emergency Provider Emergency Medicine; PCP Internal Medicine; Visit Provider Student in an Organized Health Care Education/Training Program | DX: I50.33 Acute on chronic diastolic (congestive) heart failure (principal); D50.9 Iron deficiency anemia, unspecified | CPT/HCPCS: 99223; 99232; 99233; 99239 ==

== ENCOUNTER → 2023-11-29 16:23 | Outpatient (BNV) | payer MEDICARE, SELFPAY | PROVIDERS: Admitting Provider Student in an Organized Health Care Education/Training Program; Emergency Provider Emergency Medicine; PCP Internal Medicine; Visit Provider Internal Medicine | DX: Z01.810 Encounter for preprocedural cardiovascular examination (principal); D50.9 Iron deficiency anemia, unspecified; I50.9 Heart failure, unspecified | CPT/HCPCS: 99223 ==

== ENCOUNTER 2023-12-24 12:35 | Inpatient (IN) | payer MEDICARE, SELFPAY ==
[2023-12-24] VITALS (7 sets, daily range): BP systolic 104–153; BP diastolic 58–98; PULSE 67–71; RESP 14–20; TEMP 36.2–37.1; O2SAT 92–99; BMI 24.3
--- NOTE | ~2023-12-24 | XR_ITS ---
EXAMINATION: XR CHEST CLINICAL INFORMATION: Shortness of breath COMPARISON: Chest x-ray December 08, 2023 TECHNIQUE: 2 views of the chest were obtained. FINDINGS: Status post median sternotomy. No change position pacemaker leads in right atrium and right ventricle. No pulmonary vascular congestion. No focal consolidation. Small volume right pleural effusion blunting costophrenic angle new since prior chest x-ray. XR/XR chest 2V IMPRESSION: Small volume right pleural effusion. Electronically signed by: Jonn Faria MD 12/24/2023 03:59 PM EDT
--- NOTE | 2023-12-24 13:02 | ED.SOB ---
HPI - SOB/Dyspnea General Chief Complaint: Dyspnea Stated Complaint: SOB 97% RA PER EMS Time Seen by Provider: 12/24/23 13:00 Source: patient Mode of arrival: EMS Limitations: no limitations History of Present Illness ED Provider: Dr. Mehul Beverly HPI Narrative: 83-year-old female with a PMH significant for CAD, NSTEMI on Plavix, AFib on Eliquis, unspecified CHF, HTN, ggq-ypblhyr-iztfvdsok type 2 diabetes, SSS s/p pacemaker in place, HTN, HLD, and GERD who presents to emergency department for evaluation of shortness of breath and dyspnea on exertion since yesterday. The patient states that she was chronically short of breath but her symptoms have gotten worse since yesterday. She states that the shortness of breath got worse overnight and this morning was severe. She states she was only able to walk a short distance before she becomes short of breath. She has an occasional cough which is nonproductive. She denied fever, chills, rhinorrhea or sore throat. She denied chest pain, nausea, vomiting or diarrhea. She was not noticed any dark tarry stools or bloody stools. She denied frequency, urgency or dysuria. The patient was 11/29/2023 until 12/09/2023 for for shortness of breath and dyspnea on exertion. She was found to have anemia with an H&H of 7.1 and 26.4 with a MCV of 69 and a BNP of 726. She did have an endoscopy 12/02/2023 which revealed small area of Gill's esophagitis with hiatal hernia, minimal gastric erythema, minimal duodenitis. She did not have a colonoscopy, but it was felt that her blood loss was secondary to a slow upper GI bleed. She was transfuse 2 units of packed red blood cells. She was diuresed with IV furosemide. Echocardiogram revealed hyperdynamic LVEF greater than 70%. Related Data Home Medications ?Medication ?Instructions ?Recorded ?Confirmed apixaban 5 mg tablet (Eliquis) 5 mg PO BID 11/29/23 12/24/23 aripiprazole 10 mg tablet 10 mg PO BEDTIME 11/29/23 12/24/23 duloxetine 60 mg capsule,delayed 120 mg PO DAILY 11/29/23 12/24/23 release empagliflozin 25 mg tablet 25 mg PO DAILY 11/29/23 12/24/23 (Jardiance) ezetimibe 10 mg tablet 10 mg PO DAILY 11/29/23 12/24/23 glipizide 5 mg tablet, extended 5 mg PO DAILY 11/29/23 12/24/23 release 24 hr lamotrigine 100 mg tablet 100 mg PO BEDTIME 11/29/23 12/24/23 metoprolol succinate 100 mg 50 mg PO DAILY 11/29/23 12/24/23 tablet,extended release 24 hr pantoprazole 40 mg tablet,delayed 40 mg PO BID@0630,1630 11/29/23 12/24/23 release ranolazine 500 mg tablet,extended 500 mg PO BID 11/29/23 12/24/23 release,12 hr rosuvastatin 40 mg tablet 40 mg PO DAILY 11/29/23 12/24/23 sitagliptin phosphate 100 mg 100 mg PO DAILY 11/29/23 12/24/23 tablet (Januvia) torsemide 10 mg tablet 20 mg PO DAILY 11/29/23 12/24/23 Previous Rx's ?Medication ?Instructions ?Recorded ferrous sulfate 324 mg (65 mg 324 mg PO DAILY #30 tabs 12/04/23 iron) tablet,delayed release Allergies Allergy/AdvReac Type Severity Reaction Status Date / Time Penicillins Allergy Anaphylaxis Verified 12/24/23 13:06 vancomycin Allergy Hives Verified 12/24/23 13:06 Review of Systems Review of Systems: Yes all other systems are reviewed and are negative [facility] Past Medical History Medical History Preoperative cardiovascular examination Sick sinus syndrome Pacemaker Diabetes Hyperlipidemia HTN (hypertension) Pulmonary embolus ASD (atrial septal defect) CAD (coronary artery disease) Social History Social History Household Members: Spouse Housing: Apartment Housing Other:: four stairs up to apartment Are you a primary child day care provider to a significant other at home: Yes Do you presently have visiting nurse or other home services: Yes (PT/OT/Nurse -d/c from rehab 1 week ago.) Patient Tobacco Use Status: Never used Tobacco Smoked in Last 30 Days: No Use of substances other than those prescribed or required for medical reasons: No Currently Displaying Signs/Symptoms of Drug Intoxication Withdrawal: No Have you been hit, kicked, punched, or otherwise hurt by someone within the past year? If so, by whom?: No Do you feel safe in your current relationship?: Yes Is there a partner from a previous relationship who is making you feel unsafe now?: No Are you made to feel afraid or neglected: No Advance Directives: Yes Advance Directives on File: Yes Advance Directives Date on File: 11/29/23 Do you have a plan to hurt others: No Plan Recently lost weight without trying: No How much weight loss: Not applicable Eating poorly because of decreased appetite: Yes Nutrition screen score: 1 Nutrition Risks: No Nutritional Risk Patient : No : No Poor oral hygiene: No service: No Physical Exam Vital Signs: Vital Signs: Last Vital Signs Temp 97.8 F 12/26/23 19:54 Pulse 76 12/26/23 19:54 Resp 19 12/26/23 19:54 BP 113/60 12/26/23 19:54 Pulse Ox 95 12/26/23 19:54 O2 Del Method Nasal Cannula 12/26/23 19:54 O2 Flow Rate 1 12/26/23 19:54 BMI result Body Mass Index 24.3 Medications Administered Generic Name Dose Route Start Last Admin Trade Name Freq PRN Reason Stop Dose Admin Acetaminophen 650 mg 12/24/23 18:05 12/25/23 04:30 Acetaminophen 325 Mg Tablet PO 650 mg Q6H PRN Administration Pain, Mild (Pain Scale 1-3), fever or headache Albuterol/Ipratropium 3 ml 12/26/23 12:00 12/26/23 20:00 Albuterol/Iprat 2.5/0.5mg 3 Ml Ampul.Neb INHALE 3 ml RQ4H WHILE AWAKE MC Administration Apixaban 5 mg 12/25/23 09:00 12/26/23 09:45 Apixaban 5 Mg Tablet PO 5 mg BID MC Administration Aripiprazole 10 mg 12/25/23 21:00 12/25/23 20:50 Aripiprazole 10 Mg Tablet PO 10 mg BEDTIME MC Administration Atorvastatin Calcium 80 mg 12/25/23 09:00 12/26/23 09:45 Atorvastatin Calcium 80 Mg Tablet PO 80 mg DAILY MC Administration Duloxetine HCl 120 mg 12/25/23 09:00 12/26/23 09:45 Duloxetine Hcl 60 Mg Capsule. PO 120 mg DAILY MC Administration Ezetimibe 10 mg 12/25/23 09:00 12/26/23 09:44 Ezetimibe 10 Mg Tablet PO 10 mg DAILY MC Administration Empagliflozin 25 mg 12/25/23 09:00 12/26/23 09:45 Empagliflozin 25 Mg Tablet PO 25 mg DAILY MC Administration Ferrous Sulfate 324 mg 12/25/23 09:00 12/26/23 09:44 Ferrous Sulfate 324 Mg Tablet. PO 324 mg DAILY MC Administration Glipizide 5 mg 12/25/23 08:00 12/26/23 09:45 Glipizide Xl 5 Mg Tab.Er.24 PO 5 mg DAILY@0800 [facility] Administration Insulin Human Lispro 0 unit 12/25/23 07:30 12/26/23 16:32 Insulin Lispro 100 Unit/Ml 3 Ml Vial SUBCUT 4 unit QIDACHS [facility] Administration Protocol Lamotrigine 100 mg 12/25/23 21:00 12/25/23 20:50 Lamotrigine 100 Mg Tablet PO 100 mg BEDTIME MC Administration Metoprolol Succinate 50 mg 12/25/23 09:00 12/26/23 09:44 Metoprolol Succinate Er 50 Mg Tab.Er.24h PO 50 mg DAILY [facility] Administration Protocol Omeprazole 20 mg 12/25/23 06:30 12/26/23 16:32 Omeprazole 20 Mg Capsule. PO 20 mg BID@0630,1630 MC Administration Ranolazine 500 mg 12/25/23 09:00 12/26/23 09:44 Ranolazine 500 Mg Tab.Er.12h PO 500 mg BID MC Administration Sitagliptin Phosphate 100 mg 12/25/23 09:00 12/26/23 09:45 Sitagliptin Phosphate 100 Mg Tablet PO 100 mg DAILY MC Administration Sodium Chloride 3 ml 12/25/23 00:00 12/26/23 16:32 0.9 % Sodium Chloride Flush 3 Ml Syringe IVFLUSH 3 ml QSHIFT [facility] Administration Discontinued Medications Generic Name Dose Route Start Last Admin Trade Name Freq PRN Reason Stop Dose Admin Furosemide 20 mg 12/24/23 15:56 12/24/23 18:12 Furosemide 20 Mg/2 Ml Vial IVPUSH 12/24/23 15:57 20 mg ONCE ONE Administration Protocol Furosemide 20 mg 12/25/23 09:00 12/25/23 10:07 Furosemide 20 Mg/2 Ml Vial IVPUSH 20 mg BID@0900,1800 MC Administration Protocol Furosemide 40 mg 12/25/23 18:00 12/26/23 09:44 Furosemide 20 Mg/2 Ml Vial IVPUSH 40 mg BID@0900,1800 MC Administration Protocol Lidocaine HCl 5 ml 12/24/23 17:29 12/24/23 18:08 Lidocaine Hcl 1 % Mpf 5 Ml Vial INFILTRATI 12/24/23 17:30 Not Given ONCE STA Methylprednisolone Sodium Succinate 40 mg 12/26/23 09:00 12/26/23 09:44 Methylprednisolone Sod Succ 40 Mg/Ml Vial IVPUSH 40 mg Q24H MC Administration Medical Decision Making Medical Decision Making [facility] Narrative: 83-year-old female with a PMH significant for CAD, NSTEMI on Plavix, AFib on Eliquis, unspecified CHF, HTN, vny-dycimov-gefwprehu type 2 diabetes, SSS s/p pacemaker in place, HTN, HLD, and GERD who presents to emergency department for evaluation of shortness of breath and dyspnea on exertion which started yesterday and became progressively worse last night and this morning. The patient states that she was chronically short of breath but her symptoms have gotten worse since yesterday to the point where she was not able to walk secondary to dyspnea. She denied fever, chest pain or shortness of breath. She was recently hospitalized 11/29/2023 until 12/09/2023 for similar symptoms-she was found to be severely anemic and was transfused 2 units of packed red blood cells and also treated with IV diuretics. Echocardiogram revealed a hyperdynamic LVEF greater than 70%. Physical examination revealed that she was afebrile but she did have O2 saturations that were as low as 87% on room air. Exam was otherwise unremarkable Differential diagnosis: ?Includes but is not limited to myocardial infarction, myocardial ischemia, pulmonary edema, pneumonia, anemia, electrolyte abnormalities Course: 16:50 My interpretation patient's laboratory evaluation as follows microcytic anemia with an H&H of 10.4 and 36.6-significantly improved from her previous admission. Elevated INR 1.7. Elevated PTT of 39.2. Elevated CO2 32. LFTs were normal. High sensitive troponin I was detectable but not elevated at 7.1. Lipase was normal. BNP was elevated 510. My interpretation patient's chest x-ray was no acute disease. Radiologist states that there is a small right pleural effusion. Given hypoxia and elevated and elevated BNP patient was ordered to get Lasix 20 mg IV. I did discuss admission over tiger text with the covering hospitalist, Dr. Bronson Admission/Observation Consideration of admission/observation: Escalation of care including admission/observation considered (Yes) Consult Healthcare Provider Management of the patient was discussed with: Hospitalist Lab Data MDM Lab Attestation statement: I reviewed the patient's lab results. 12/25/23 06:51 12/26/23 06:11 Labs: Lab Results 12/24/23 12/24/23 12/24/23 Range/Units 13:48 15:46 17:17 WBC 7.2 (4.8-10.8) X10*3/uL RBC 4.77 (4.20-5.50) X10*6/uL Hgb 10.4 L (12.0-16.0) g/dl Hct 36.6 L (37.0-47.0) % MCV 76.7 L (80.0-98.0) fL MCH 21.8 L (27.0-33.0) pg MCHC 28.4 L (31.0-35.0) g/dl RDW 27.9 H (11.0-16.0) % Plt Count 271 (160-400) X10*3/uL MPV 10.1 (9.4-12.3) fL Immature Gran % (Auto) 0.3 (0.0-0.4) % Neut % (Auto) 76.2 H (45-73) % Lymph % (Auto) 14.1 L (20-40) % [place] % (Auto) 7.0 (2-11) % Eos % (Auto) 1.8 (0-4) % Baso % (Auto) 0.6 (0-2) % Lymph # (Auto) 1.0 L (1.2-4.9) X10*3/uL [place] # (Auto) 0.5 (0.1-1.2) X10*3/uL Eos # (Auto) 0.1 (0.0-0.4) X10*3/uL Baso # (Auto) 0.0 (0.0-0.2) X10*3/uL Abs Immat Gran (auto) 0.02 (0.00-0.03) X10*3/uL Absolute Neuts (auto) 5.5 (2.0-8.3) x10*3/uL Absolute Nucleated RBC 0.000 (0.0-0.012) X10*3/uL Nucleated RBC % (auto) 0.0 (0.0-0.2) /100WBC PT 20.1 H D (10.9-12.4) SEC INR 1.7 H (0.9-1.1) APTT 39.2 H (26.0-36.8) SEC Sodium 145 (135-145) mmol/L Potassium 3.7 (3.3-5.1) mmol/L Chloride 108 (96-108) mmol/L Carbon Dioxide 32 H (22-29) mmol/L Anion Gap 9 L (12-20) BUN 13 (9-16) mg/dL Creatinine 0.84 (0.5-1.4) mg/dL Estim Creat Clear Calc 51.2 Estimated GFR > 60 Random Glucose 98 (60-115) mg/dL Calcium 9.0 D (8.4-10.2) mg/dL Total Bilirubin 0.6 (0.0-1.0) mg/dL AST 19 (5-31) U/L ALT 15 (0-31) U/L Alkaline Phosphatase 100 (39-117) U/L Troponin I High Sens 7.1 Cancelled (<3.5-17.0) ng/L B-Natriuretic Peptide 510 H (<100) pg/mL Total Protein 6.3 L (6.5-8.0) g/dL Albumin 3.5 (3.5-5.0) g/dL Lipase 12 (8-78) U/L Urine Color Yellow Urine Appearance Clear Urine pH 5.5 (5.0-9.0) Ur Specific [place] 1.020 (1.005-1.025) Urine Protein Trace (Neg-Trace) mg/dL Urine Glucose (UA) >=1000 H (Negative) mg/dL Urine Ketones Negative (Negative) mg/dL Urine Blood Negative (Negative) Urine Nitrite Negative (Negative) Ur Leukocyte Esterase Moderate (2+) H (Negative) Urine RBC 0-2 (0-2) /HPF Urine WBC >50 H (0-5) /HPF Ur Squamous Epith Cells 3-5 (0-2) /HPF Urine Bacteria None Seen (None Seen) Hyaline Casts 0-2 (0-2) /LPF Independent Interpretation I performed an independent interpretation of an: EKG Interpretation: My interpretation of the patient's 12 lead EKG is as follows: Paced rhythm with a rate of 70 Radiology Impression Discussion of test interpretation with radiology: I have reviewed the radiologist's reading. Radiologist Impression: XR chest 2V IMPRESSION: Small volume right pleural effusion. Electronically signed by: Jonn Faria MD 12/24/2023 03:59 PM Independent Historian Clinical information obtained from an independent historian. History obtained from or confirmed by: Spouse External Record Review External record reviewed: Inpatient record Chronic Conditions Patient?s care impacted by: Other (Congestive heart failure) Critical Care Time Critical Care Time Critical Care Time: Yes Total Critical Care Time: 45 Attestation: Critical Care: The patient was critically ill with a high probability of imminent or life threatening deterioration. I spent greater than 30 minutes of discontinuous time evaluating the patient,delivering critical care at the bedside, discussing and evaluating pertinent data with consultants. Critical care time does not include time spent performing separately billable procedures or teaching. Total time spent performing critical care was 45 minutes. Discharge Plan Discharge Clinical Impression: Congestive heart failure, Hypoxia Patient Disposition: Admitted As Inpatient Interventions: Admission Worksheet (ED) Last Done: 12/24/23 19:32 Discharge Date/Time: 12/24/23 19:32
--- NOTE | 2023-12-24 13:37 | ECG_ITS ---
Test Reason : dyspnea Blood Pressure : / mmHG Vent. Rate : 070 BPM Atrial Rate : 075 BPM P-R Int : 000 ms QRS Dur : 168 ms QT Int : 470 ms P-R-T Axes : 000 -72 096 degrees QTc Int : 507 ms Ventricular-paced rhythm Abnormal ECG When compared with ECG of 29-NOV-2023 09:24, Electronic ventricular pacemaker has replaced Electronic atrial pacemaker Referred By: Mehul Beverly Electronically Signed By:MARK GUTHRIE
[2023-12-24 13:53] LABS: MANUAL DIFF FLAG NO
[2023-12-24 13:54] LABS: Basophils Percent Auto 0.6 % (0-2); Eosinophils Absolute Auto 0.1 X10*3/uL (0.0-0.4); Eosinophils Percent Auto 1.8 % (0-4); Hematocrit 36.6 % (37.0-47.0); Hemoglobin 10.4 g/dl (12.0-16.0); Imm Gran Abs Auto 0.02 X10*3/uL (0.00-0.03); Imm Gran Pct Auto 0.3 % (0.0-0.4); Lymphocytes Percent Auto 14.1 % (20-40); Mean Corpuscular HGB Conc 28.4 g/dl (31.0-35.0); Mean Corpuscular Hemoglobin 21.8 pg (27.0-33.0); Mean Corpuscular Volume 76.7 fL (80.0-98.0); Mean Platelet Volume 10.1 fL (9.4-12.3); Monocytes Absolute Auto 0.5 X10*3/uL (0.1-1.2); Neutrophils Absolute Auto 5.5 x10*3/uL (2.0-8.3); Neutrophils Percent Auto 76.2 % (45-73); Platelet Count 271 X10*3/uL (160-400); Red Blood Count 4.77 X10*6/uL (4.20-5.50); Red Cell Distribution Width 27.9 % (11.0-16.0); White Blood Count 7.2 X10*3/uL (4.8-10.8)
[2023-12-24 14:01] LABS: INTERNATIONAL NORM RATIO 1.7 (0.9-1.1); Prothrombin Time 20.1 SEC (10.9-12.4)
[2023-12-24 14:03] LABS: Partial Thromboplastin Time 39.2 SEC (26.0-36.8)
[2023-12-24 14:11] LABS: Alanine Aminotransferase 15 U/L (0-31); Albumin Level 3.5 g/dL (3.5-5.0); Alkaline Phosphatase 100 U/L (39-117); Anion Gap 9 (12-20); Aspartate Amino Transferase 19 U/L (5-31); Bilirubin Total 0.6 mg/dL (0.0-1.0); Blood Urea Nitrogen 13 mg/dL (9-16); Carbon Dioxide 32 mmol/L (22-29); Chloride 108 mmol/L (96-108); Creatinine Clr Calc Pharmacy 51.2; Estimated Glomerular Filt Rate > 60; Glucose Random 98 mg/dL (60-115); Lipase 12 U/L (8-78); Potassium 3.7 mmol/L (3.3-5.1); Sodium 145 mmol/L (135-145); Total Protein 6.3 g/dL (6.5-8.0)
[2023-12-24 14:15] LABS: B Type Natriuretic Peptide 510 pg/mL (<100)
[2023-12-24 14:16] LABS: Troponin-I High Sensitivity 7.1 ng/L (<3.5-17.0)
[2023-12-24 15:56] LABS: Appearance Urine Clear; Color Urine Yellow; Glucose Urine UA >=1000 mg/dL (Negative); Leukocyte Esterase Urine Moderate (2+) (Negative); Nitrite Urine Negative (Negative); PH 5.5 (5.0-9.0); UMIC TRIGGER UACC YES; Urine Blood Negative (Negative); Urine Ketones Negative (Negative); Urine Protein Trace mg/dL (Neg-Trace)
--- NOTE | 2023-12-24 16:54 | PC.NURSE ---
IV lasix admin delay d/t difficult IV access
[2023-12-24 17:10] LABS: Bacteria Urine None Seen (None Seen); Hyaline Casts Urine 0-2 /LPF (0-2); RBC Urine 0-2 /HPF (0-2); UACC Culture Trigger YES; WBC Urine >50 /HPF (0-5)
--- NOTE | 2023-12-24 17:13 | P.HPHOSP_ITS ---
History of Present Illness Date of Service: 12/24/23 Attending physician on admission: Jay Bronson Chief Complaint: SOB, MACIAS Pt is a 83-year-old female with a PMH significant for?CAD, NSTEMI, AFib on Eliquis, unspecified CHF, HTN, zoz-drhotyi-fgtrkmmoe type 2 diabetes, SSS s/p pacemaker in place, HTN, HLD, and GERD?who presents to the ED with?worsening SOB and MACIAS times 2-3 days. Patient was recently hospitalized here from 11/28-12/08 for similar symptoms and found to be anemic likely secondary to UGIB that improved with transfusion of 2 units PRBCs. Had been on both Plavix and Eliquis; Plavix was discontinued upon discharge per Cardiology. Was also diuresed with IV Lasix and IV acetazolamide acetazolamide. Echocardiogram then found LV systolic function hyperdynamic with EF >70% with mild aortic and tricuspid valve regurgitation. Pt was discharged to [facility] and then discharged home 8 days ago. Patient reports SOB and MACIAS continued to worsen after discharge, especially in the past 2-3 days. Uses a 4 wheeled walker at baseline for ambulation and reports becomes short of breath with the least amount of exertion such as standing up or taking even a few steps. Describes it as ?feeling like an boa constrictor is around my chest?. Feels increasingly fatigued. Chronic nonproductive cough at baseline. Denies recent weight gain or lower leg edema. No fever, chills, nausea, vomiting, abdominal pain. Denies chest pain/pressure or palpitations. No polyuria or dysuria. Does not carry any formal pulmonary diagnosis but has a 20+ pack year smoking history, quit 30 years ago. Not on home O2. In the ED pt was mildly hypertensive up to 153/61 and hypoxic as low as 87% on RA. Labs were significant for elevated BNP 510 (elevated from 361 at time of last discharge), otherwise grossly unremarkable and around baseline. No leukocytosis. Stable H&H or 10.4/36.6. No significant electrolyte abnormalities. Renal function baseline. Hepatic function WNL. UA not convincingly positive with leukocyte esterase and wbc's, but no bacteria or nitrites. CXR showed new small right pleural effusion. EKG demonstrated ventricular paced rhythm with QTc of 507. Pt was treated with Lasix 20mg IV. Pt will be admitted to the hospital for treatment and further evaluation of acute hypoxic respiratory failure in the setting of HFpEF exacerbation. Review of Systems 2 Review of Systems: Yes all other systems are reviewed and are negative [facility] Medical History Preoperative cardiovascular examination Sick sinus syndrome Pacemaker Diabetes Hyperlipidemia HTN (hypertension) Pulmonary embolus ASD (atrial septal defect) CAD (coronary artery disease) Social History Household Members: Spouse Housing: Apartment Housing Other:: four stairs up to apartment Are you a primary critical care nurse to a significant other at home: Yes Do you presently have visiting nurse or other home services: Yes (PT/OT/Nurse - d/c from rehab 1 week ago.) Patient Tobacco Use Status: Never used Tobacco Smoked in Last 30 Days: No Use of substances other than those prescribed or required for medical reasons: No Currently Displaying Signs/Symptoms of Drug Intoxication Withdrawal: No Have you been hit, kicked, punched, or otherwise hurt by someone within the past year? If so, by whom?: No Do you feel safe in your current relationship?: Yes Is there a partner from a previous relationship who is making you feel unsafe now?: No Are you made to feel afraid or neglected: No Advance Directives: Yes Advance Directives on File: Yes Advance Directives Date on File: 11/29/23 Do you have a plan to hurt others: No Plan Recently lost weight without trying: No How much weight loss: Not applicable Eating poorly because of decreased appetite: Yes Nutrition screen score: 1 Nutrition Risks: No Nutritional Risk Patient : No : No Poor oral hygiene: No service: No Meds Allergies Allergy/AdvReac Type Severity Reaction Status Date / Time Penicillins Allergy Anaphylaxis Verified 12/24/23 13:06 vancomycin Allergy Hives Verified 12/24/23 13:06 Home Medications ?Medication ?Instructions ?Recorded ?Confirmed ?Last Taken ?Type apixaban 5 mg tablet (Eliquis) 5 mg PO BID 11/29/23 12/24/23 12/24/23 09:00 History aripiprazole 10 mg tablet 10 mg PO BEDTIME 11/29/23 12/24/23 12/23/23 History duloxetine 60 mg capsule,delayed 120 mg PO DAILY 11/29/23 12/24/23 12/24/23 09:00 History release empagliflozin 25 mg tablet 25 mg PO DAILY 11/29/23 12/24/23 12/24/23 09:00 History (Jardiance) ezetimibe 10 mg tablet 10 mg PO DAILY 11/29/23 12/24/23 12/24/23 09:00 History glipizide 5 mg tablet, extended 5 mg PO DAILY 11/29/23 12/24/23 12/24/23 09:00 History release 24 hr lamotrigine 100 mg tablet 100 mg PO BEDTIME 11/29/23 12/24/23 12/23/23 History metoprolol succinate 100 mg 50 mg PO DAILY 11/29/23 12/24/23 12/24/23 09:00 History tablet,extended release 24 hr pantoprazole 40 mg tablet,delayed 40 mg PO BID@0630,1630 11/29/23 12/24/23 12/24/23 09:00 History release ranolazine 500 mg tablet,extended 500 mg PO BID 11/29/23 12/24/23 12/24/23 09:00 History release,12 hr rosuvastatin 40 mg tablet 40 mg PO DAILY 11/29/23 12/24/23 12/24/23 09:00 History sitagliptin phosphate 100 mg 100 mg PO DAILY 11/29/23 12/24/23 12/24/23 09:00 History tablet (Januvia) torsemide 10 mg tablet 20 mg PO DAILY 11/29/23 12/24/23 12/24/23 09:00 History Physical Exam 2 Vital Signs and Narrative: Vital Signs: Last Vital Signs Temp 97.7 F 12/24/23 16:49 Pulse 71 12/24/23 16:49 Resp 16 12/24/23 16:49 BP 153/61 H 12/24/23 16:49 Pulse Ox 99 12/24/23 16:49 O2 Del Method Room Air 12/24/23 16:49 O2 Flow Rate 2 12/24/23 13:07 BMI result Body Mass Index 24.3 General: AOx3, no acute distress Resp: CTA bilaterally CVS: S1, S2, RRR GI: +BS, NT, no distention Skin: Warm, dry Neuro: Cranial nerves II-XII grossly intact bilaterally. Motor grossly intact bilaterally Extremities: No edema Psych: Appropriate affect Results Labs 12/25/23 06:51 12/25/23 06:51 Labs: Laboratory Results - last 24 hr 12/24/23 12/24/23 13:48 15:46 MCV 76.7 L MCH 21.8 L MCHC 28.4 L RDW 27.9 H Plt Count 271 MPV 10.1 Immature Gran % (Auto) 0.3 Neut % (Auto) 76.2 H Lymph % (Auto) 14.1 L Gilmer % (Auto) 7.0 Eos % (Auto) 1.8 Baso % (Auto) 0.6 Lymph # (Auto) 1.0 L Gilmer # (Auto) 0.5 Eos # (Auto) 0.1 Baso # (Auto) 0.0 Abs Immat Gran (auto) 0.02 Absolute Neuts (auto) 5.5 Absolute Nucleated RBC 0.000 Nucleated RBC % (auto) 0.0 PT 20.1 H D INR 1.7 H APTT 39.2 H Anion Gap 9 L Estim Creat Clear Calc 51.2 Estimated GFR > 60 Random Glucose 98 Calcium 9.0 D Total Bilirubin 0.6 AST 19 ALT 15 Alkaline Phosphatase 100 Troponin I High Sens 7.1 B-Natriuretic Peptide 510 H Total Protein 6.3 L Albumin 3.5 Lipase 12 Urine Color Yellow Urine Appearance Clear Urine pH 5.5 Ur Specific Carver 1.020 Urine Protein Trace Urine Glucose (UA) >=1000 H Urine Ketones Negative Urine Blood Negative Urine Nitrite Negative Ur Leukocyte Esterase Moderate (2+) H Urine RBC 0-2 Urine WBC >50 H Ur Squamous Epith Cells 3-5 Urine Bacteria None Seen Hyaline Casts 0-2 Imaging Radiologist's Impressions: Impressions Chest X-Ray 12/24/23 14:10 IMPRESSION: Small volume right pleural effusion. Electronically signed by: Jonn Faria MD 12/24/2023 03:59 PM EDT RP Assessment and Plan (1) Hypoxia: Status: Acute (2) Acute on chronic heart failure with preserved ejection fraction (HFpEF): Status: Acute Plan Pt is a 83-year-old female with a PMH significant for?CAD, NSTEMI, AFib on Eliquis, unspecified CHF, HTN, vwh-ngeftnp-fuzmjzdzx type 2 diabetes, SSS s/p pacemaker in place, HTN, HLD, and GERD?who presents to the ED with?worsening SOB and MACIAS times 2-3 days. Pt will be admitted to the hospital for treatment and further evaluation of acute hypoxic respiratory failure in the setting of HFpEF exacerbation. Acute hypoxic respiratory failure in the setting of acute HFpEF exacerbation Pt with SOB, MACIAS, non-productive cough, elevated BNP, CXR with new right pleural effusion Pt noted to be desatting to 88% on RA during interview and exam Echo on 12/01 showed hyperdynamic LV EF >70% Will treat with Lasix 20mg IV b.i.d. Follow lytes, mag, I/O Daily weights, low-salt diet Titrate supplemental O2 >92, wean as tolerated Monitor on telemetry Generalized weakness In the setting of above Pt with recent 10-day hospital stay and then PT consult Paroxysmal AFib Continue Eliquis, metoprolol CAD/HLD Continue ezetimibe, statin, ranolazine Ppi-sivlxup-cbhfyfoek type 2 diabetes Continue glipizide, Januvia Sliding-scale insulin Diabetic diet Mood disorder Continue aripirazole, duloxetine, lamotrigine GERD Continue PPI DNR/DNI, confirmed with pt Attending:?Dr. Bronson DVT Prophylaxis: On Eliquis Pt will require a hospitalization of at least two nights for treatment of?generalized weakness in the setting of acute hypoxic respiratory failure in the setting of acute HFpEF exacerbation. Pt will require administration of IV diuretics, supplemental O2, and close monitoring of labs and respiratory status. Quality Stroke Does the patient have a stroke diagnosis?: No VTE Prior VTE?: No VTE Risk Level:: Medical - moderate - high VTE Device Contraindication: Treatment Not Indicated VTE Drug Contraindication: N/A - Med Ordered
--- NOTE | 2023-12-24 17:44 | PHA.MEDREC ---
Addendum entered by Susy Razo RPh 12/24/23 18:25: Reviewed by [facility] Original Note: Pharmacy Consult ? Medication Reconciliation Pharmacy has completed the medication reconciliation. Confirmed medications with patient. She confirmed her Eliquis 5mg tab BID and she last took that this AM @0900. She confirmed she is taking Glipizide 5mg tabs and she is due to refill it. She confirmed she took her morning medications today @0900.
--- NOTE | 2023-12-24 18:08 | PC.NURSE ---
Addendum entered by Brigitte Barnett LPN 12/24/23 18:11: *correction access established 1745- Pt medicated per MAY Original Note: IV access obtained at 1645, 2nd trop obtained
[2023-12-24] MEDS: Furosemide 20 MG/2 ML VIAL IVPUSH (18:12)
[2023-12-25] VITALS (8 sets, daily range): BP systolic 119–138; BP diastolic 60–74; PULSE 69–75; RESP 16–20; TEMP 36.1–36.4; O2SAT 96–100
[2023-12-25 01:34] LABS: Glucose, Whole Blood 119 mg/dL (60-115)
[2023-12-25 04:13] LABS: Influenza A PCR NEGATIVE (Negative); Influenza B PCR NEGATIVE (Negative); Resp Syncy Virus RNA Qual PCR NEGATIVE (Negative); SARS COV2 PCR INHOUSE NEGATIVE (Negative)
[2023-12-25] MEDS: Acetaminophen 325 MG TABLET 650 MG PO (04:30)
[2023-12-25] MEDS: Omeprazole 20 MG CAPSULE.DR PO ×2 (06:05→17:05)
[2023-12-25 07:01] LABS: Hemoglobin 10.1 g/dl (12.0-16.0); Mean Corpuscular HGB Conc 28.1 g/dl (31.0-35.0); Mean Corpuscular Hemoglobin 21.8 pg (27.0-33.0); Mean Corpuscular Volume 77.8 fL (80.0-98.0); Mean Platelet Volume 10.1 fL (9.4-12.3); Platelet Count 271 X10*3/uL (160-400); Red Blood Count 4.63 X10*6/uL (4.20-5.50); Red Cell Distribution Width 27.7 % (11.0-16.0); White Blood Count 8.2 X10*3/uL (4.8-10.8)
[2023-12-25 07:15] LABS: Anion Gap 12 (12-20); Blood Urea Nitrogen 11 mg/dL (9-16); Calcium 9.6 mg/dL (8.4-10.2); Carbon Dioxide 31 mmol/L (22-29); Chloride 106 mmol/L (96-108); Creatinine Clr Calc Pharmacy 55.8; Estimated Glomerular Filt Rate > 60; Glucose Random 82 mg/dL (60-115); Magnesium 2.1 mg/dL (1.6-2.6); Potassium 3.5 mmol/L (3.3-5.1); Sodium 145 mmol/L (135-145)
[2023-12-25 07:19] LABS: Glucose, Whole Blood 69 mg/dL (60-115)
--- NOTE | 2023-12-25 09:30 | MHC.CM.PN ---
IMM 12/25/23, Pt lives with her (he has Dementia, is still ind.) She was in this hosp. 11/28 - 12/08, and was DC'd to [facility], which she said was Wonderful. She was DC's from there to home and had VNA services from [facility]: nsg, Pt and OT. She has housekeeping and MOW services from [facility]. For DME: walker, tub bench, grab bars. Her home has 4 steep steps to get in with one railing. DCP: home, resume services. HCP on file and confirmed, her son Ace, PCP confirmed: Yobany Jennyjanel. CM to follow and assist with DC plan.
[2023-12-25] MEDS: Ferrous Sulfate 324 MG TABLET.DR PO (09:49)
[2023-12-25] MEDS: Empagliflozin 25 MG TABLET PO (09:49)
[2023-12-25] MEDS: Metoprolol Succinate ER 50 MG TAB.ER.24H PO (09:49)
[2023-12-25] MEDS: Apixaban 5 MG TABLET PO ×2 (09:49→20:50)
[2023-12-25] MEDS: SITagliptin Phosphate 100 MG TABLET PO (09:49)
[2023-12-25] MEDS: Atorvastatin Calcium 80 MG TABLET PO (09:50)
[2023-12-25] MEDS: Ezetimibe 10 MG TABLET PO (09:50)
[2023-12-25] MEDS: Ranolazine 500 MG TAB.ER.12H PO ×2 (09:50→20:50)
[2023-12-25] MEDS: glipiZIDE XL 5 MG TAB.ER.24 PO (09:50)
[2023-12-25] MEDS: 0.9 % Sodium Chloride Flush 3 ML SYRINGE IVFLUSH ×3 (10:01→20:53)
[2023-12-25] MEDS: DULoxetine HCl 60 MG CAPSULE.DR 120 MG PO (10:01)
[2023-12-25] MEDS: Furosemide 20 MG/2 ML VIAL IVPUSH (10:07)
[2023-12-25 11:39] LABS: Glucose, Whole Blood 125 mg/dL (60-115)
--- NOTE | 2023-12-25 15:53 | HO.PM.IMPN ---
Subjective Subjective Date of Service: 12/25/23 Interval History: chf execerbation Review of Systems sob somewhat improving i/o reviewed-dis not much produced much urine yet. Physical Exam Vital Signs: Vital Signs: Last Vital Signs Temp 96.9 F 12/25/23 11:13 Pulse 74 12/25/23 11:13 Resp 20 12/25/23 11:13 BP 130/60 12/25/23 11:13 Pulse Ox 100 12/25/23 11:13 O2 Del Method Nasal Cannula 12/25/23 11:13 O2 Flow Rate 2 12/25/23 11:13 BMI result Body Mass Index 24.3 General: AOx3, no acute distress Resp: air entry fair ,somewhat diminshed at bases , few scattered rales CVS: S1, S2, RRR GI: +BS, NT, no distention Skin: Warm, dry Neuro: Cranial nerves II-XII grossly intact bilaterally. Motor grossly intact bilaterally Extremities: 1+edema Objective Data Active Medications Acetaminophen (Acetaminophen 325 Mg Tablet) 650 mg PO Q6H PRN PRN Reason: Pain, Mild (Pain Scale 1-3), fever or headache Last Admin: 12/25/23 04:30 Dose: 650 mg Documented By: JUAN DIEGO Apixaban (Apixaban 5 Mg Tablet) 5 mg PO BID [facility] Last Admin: 12/25/23 09:49 Dose: 5 mg Documented By: LUDA Aripiprazole (Aripiprazole 10 Mg Tablet) 10 mg PO BEDTIME [facility] Atorvastatin Calcium (Atorvastatin Calcium 80 Mg Tablet) 80 mg PO DAILY [facility] Last Admin: 12/25/23 09:50 Dose: 80 mg Documented By: LUDA Benzonatate (Benzonatate 100 Mg Capsule) 100 mg PO TID PRN PRN Reason: Cough Calcium Carbonate (Calcium Carbonate 750 Mg Tab.Chew) 750 mg PO Q4H PRN PRN Reason: Heartburn Duloxetine HCl (Duloxetine Hcl 60 Mg Capsule.) 120 mg PO DAILY [facility] Last Admin: 12/25/23 10:01 Dose: 120 mg Documented By: LUDA Ezetimibe (Ezetimibe 10 Mg Tablet) 10 mg PO DAILY [facility] Last Admin: 12/25/23 09:50 Dose: 10 mg Documented By: LUDA Empagliflozin (Empagliflozin 25 Mg Tablet) 25 mg PO DAILY [facility] Last Admin: 12/25/23 09:49 Dose: 25 mg Documented By: LUDA Ferrous Sulfate (Ferrous Sulfate 324 Mg Tablet.) 324 mg PO DAILY [facility] Last Admin: 12/25/23 09:49 Dose: 324 mg Documented By: LUDA Furosemide (Furosemide 20 Mg/2 Ml Vial) 40 mg IVPUSH BID@0900,1800 [facility]; Protocol Glipizide (Glipizide Xl 5 Mg Tab.Er.24) 5 mg PO DAILY@0800 [facility] Last Admin: 12/25/23 09:50 Dose: 5 mg Documented By: LUDA Glucose (Glucose Gel 15 Gm Gel..Gram.) 15 gm PO Q15M PRN; Protocol PRN Reason: per Hypoglycemia Standing Ord. Dextrose (D10) 250 mls @ 750 mls/hr IV Q15M PRN; Protocol PRN Reason: per Hypoglycemia Standing Ord. Insulin Human Lispro (Insulin Lispro 100 Unit/Ml 3 Ml Vial) 0 unit SUBCUT QIDACHS [facility]; Protocol Last Admin: 12/25/23 11:40 Dose: Not Given Documented By: LUDA Non-Admin Reason: No Insulin Coverage Lamotrigine (Lamotrigine 100 Mg Tablet) 100 mg PO BEDTIME [facility] Magnesium Hydroxide (Milk Of Magnesia 30 Ml Oral.Susp) 30 ml PO DAILY PRN PRN Reason: Constipation Melatonin (Melatonin 3 Mg Tablet) 6 mg PO BEDTIME PRN PRN Reason: Insomnia Metoprolol Succinate (Metoprolol Succinate Er 50 Mg Tab.Er.24h) 50 mg PO DAILY [facility]; Protocol Last Admin: 12/25/23 09:49 Dose: 50 mg Documented By: LUDA Omeprazole (Omeprazole 20 Mg Capsule.) 20 mg PO BID@0630,1630 [facility] Last Admin: 12/25/23 06:05 Dose: 20 mg Documented By: JUAN DIEGO Ondansetron HCl (Ondansetron Hcl 4 Mg/2 Ml Vial) 4 mg IVPUSH Q8H PRN PRN Reason: Nausea and Vomiting Ranolazine (Ranolazine 500 Mg Tab.Er.12h) 500 mg PO BID [facility] Last Admin: 12/25/23 09:50 Dose: 500 mg Documented By: LUDA Sitagliptin Phosphate (Sitagliptin Phosphate 100 Mg Tablet) 100 mg PO DAILY [facility] Last Admin: 12/25/23 09:49 Dose: 100 mg Documented By: LUDA Sodium Chloride (0.9 % Sodium Chloride Flush 3 Ml Syringe) 3 ml IVFLUSH QSHIFT [facility] Last Admin: 12/25/23 10:01 Dose: 3 ml Documented By: LUDA Labs 12/25/23 06:51 12/25/23 06:51 Labs: Laboratory Results - last 24 hr 12/24/23 12/24/23 12/24/23 15:46 17:17 23:31 MCV MCH MCHC RDW Plt Count MPV Absolute Nucleated RBC Nucleated RBC % (auto) Anion Gap Estim Creat Clear Calc Estimated GFR POC Glucose 119 H Random Glucose Calcium Magnesium Troponin I High Sens Cancelled Urine Color Yellow Urine Appearance Clear Urine pH 5.5 Ur Specific Hendley 1.020 Urine Protein Trace Urine Glucose (UA) >=1000 H Urine Ketones Negative Urine Blood Negative Urine Nitrite Negative Ur Leukocyte Esterase Moderate (2+) H Urine RBC 0-2 Urine WBC >50 H Ur Squamous Epith Cells 3-5 Urine Bacteria None Seen Hyaline Casts 0-2 Influenza Type A (PCR) Influenza Type B (PCR) RSV RNA Qual (PCR) SARS-CoV-2 RNA (RT-PCR) 12/25/23 12/25/23 12/25/23 03:25 06:51 07:10 MCV 77.8 L MCH 21.8 L MCHC 28.1 L RDW 27.7 H Plt Count 271 MPV 10.1 Absolute Nucleated RBC 0.000 Nucleated RBC % (auto) 0.0 Anion Gap 12 Estim Creat Clear Calc 55.8 Estimated GFR > 60 POC Glucose 69 Random Glucose 82 Calcium 9.6 D Magnesium 2.1 Troponin I High Sens Urine Color Urine Appearance Urine pH Ur Specific [place] Urine Protein Urine Glucose (UA) Urine Ketones Urine Blood Urine Nitrite Ur Leukocyte Esterase Urine RBC Urine WBC Ur Squamous Epith Cells Urine Bacteria Hyaline Casts Influenza Type A (PCR) NEGATIVE Influenza Type B (PCR) NEGATIVE RSV RNA Qual (PCR) NEGATIVE SARS-CoV-2 RNA (RT-PCR) NEGATIVE 12/25/23 11:34 MCV MCH MCHC RDW Plt Count MPV Absolute Nucleated RBC Nucleated RBC % (auto) Anion Gap Estim Creat Clear Calc Estimated GFR POC Glucose 125 H Random Glucose Calcium Magnesium Troponin I High Sens Urine Color Urine Appearance Urine pH Ur Specific [place] Urine Protein Urine Glucose (UA) Urine Ketones Urine Blood Urine Nitrite Ur Leukocyte Esterase Urine RBC Urine WBC Ur Squamous Epith Cells Urine Bacteria Hyaline Casts Influenza Type A (PCR) Influenza Type B (PCR) RSV RNA Qual (PCR) SARS-CoV-2 RNA (RT-PCR) Microbiology Microbiology Results: Microbiology 12/24/23 15:46 Urine Culture - Preliminary Urine clean catch - Clean Catch Midstream Culture in progress. Assessment and Plan (1) Hypoxia: Status: Acute (2) Congestive heart failure: Status: Acute Assessment and Plan: 83-year-old female with a PMH significant for?CAD, NSTEMI, AFib on Eliquis, unspecified CHF, HTN, hpq-eybvnau-cqfhiuscj type 2 diabetes, SSS s/p pacemaker in place, HTN, HLD, and GERD?who presents to the ED with?worsening SOB and MACIAS times 2-3 days. Pt will be admitted to the hospital for treatment and further evaluation of acute hypoxic respiratory failure in the setting of HFpEF exacerbation. Acute hypoxic respiratory failure in the setting of acute HFpEF exacerbation SOB, MACIAS, non-productive cough somewhat improving elevated BNP, CXR with new right pleural effusion Echo on 12/01 showed hyperdynamic LV EF >70% plan: Follow lytes, mag, I/O so afr 250 ml negative Daily weights, low-salt diet adjusted iv lasix 40 mg bid Titrate supplemental O2 >92, wean as tolerated Monitor on telemetry Generalized weakness In the setting of above Pt with recent 10-day hospital stay and then PT consult Paroxysmal AFib Continue Eliquis, metoprolol CAD/HLD Continue ezetimibe, statin, ranolazine Cve-fptuuvh-afmerswsi type 2 diabetes Continue glipizide, Januvia Sliding-scale insulin Diabetic diet Mood disorder Continue aripirazole, duloxetine, lamotrigine GERD Continue PPI DNR/DNI. ongoing hospitalization need for treatment of?generalized weakness in the setting of acute hypoxic respiratory failure in the setting of acute HFpEF exacerbation. Pt will require administration of IV diuretics, supplemental O2, and close monitoring of labs and respiratory status. Quality Stroke Does the patient have a stroke diagnosis?: No VTE Prior VTE?: No VTE Risk Level:: Medical - moderate - high VTE Device Contraindication: Treatment Not Indicated VTE Drug Contraindication: N/A - Med Ordered
[2023-12-25 15:56] LABS: Glucose, Whole Blood 119 mg/dL (60-115)
[2023-12-25] MEDS: Furosemide 20 MG/2 ML VIAL 40 MG IVPUSH (17:05)
[2023-12-25] MEDS: ARIPiprazole 10 MG TABLET PO (20:50)
[2023-12-25] MEDS: lamoTRIgine 100 MG TABLET PO (20:50)
[2023-12-25 20:59] LABS: Glucose, Whole Blood 159 mg/dL (60-115)
[2023-12-25] MEDS: Insulin Lispro 100 UNIT/ML 3 ML VIAL SUBCUT (21:01)
[2023-12-26] VITALS (9 sets, daily range): BP systolic 111–129; BP diastolic 56–64; PULSE 71–76; RESP 19–20; TEMP 36.2–36.6; O2SAT 94–98
[2023-12-26] MEDS: Omeprazole 20 MG CAPSULE.DR PO ×2 (06:24→16:32)
[2023-12-26 07:04] LABS: Anion Gap 11 (12-20); Blood Urea Nitrogen 10 mg/dL (9-16); Calcium 9.9 mg/dL (8.4-10.2); Carbon Dioxide 36 mmol/L (22-29); Chloride 102 mmol/L (96-108); Estimated Glomerular Filt Rate > 60; Glucose Random 88 mg/dL (60-115); Potassium 3.9 mmol/L (3.3-5.1); Sodium 145 mmol/L (135-145)
[2023-12-26 08:08] LABS: Glucose, Whole Blood 90 mg/dL (60-115)
[2023-12-26] MEDS: Metoprolol Succinate ER 50 MG TAB.ER.24H PO (09:44)
[2023-12-26] MEDS: methylPREDNISolone Sod Succ 40 MG/ML VIAL IVPUSH (09:44)
[2023-12-26] MEDS: Ezetimibe 10 MG TABLET PO (09:44)
[2023-12-26] MEDS: Ferrous Sulfate 324 MG TABLET.DR PO (09:44)
[2023-12-26] MEDS: Ranolazine 500 MG TAB.ER.12H PO ×2 (09:44→22:44)
[2023-12-26] MEDS: Furosemide 20 MG/2 ML VIAL 40 MG IVPUSH (09:44)
[2023-12-26] MEDS: 0.9 % Sodium Chloride Flush 3 ML SYRINGE IVFLUSH ×3 (09:45→22:45)
[2023-12-26] MEDS: Apixaban 5 MG TABLET PO ×2 (09:45→22:44)
[2023-12-26] MEDS: SITagliptin Phosphate 100 MG TABLET PO (09:45)
[2023-12-26] MEDS: DULoxetine HCl 60 MG CAPSULE.DR 120 MG PO (09:45)
[2023-12-26] MEDS: glipiZIDE XL 5 MG TAB.ER.24 PO (09:45)
[2023-12-26] MEDS: Empagliflozin 25 MG TABLET PO (09:45)
[2023-12-26] MEDS: Atorvastatin Calcium 80 MG TABLET PO (09:45)
[2023-12-26 11:35] LABS: Glucose, Whole Blood 162 mg/dL (60-115)
[2023-12-26] MEDS: Insulin Lispro 100 UNIT/ML 3 ML VIAL SUBCUT ×3 (11:56→22:45)
[2023-12-26] MEDS: Albuterol/Iprat 2.5/0.5MG 3 ML AMPUL.NEB INHALE ×3 (12:18→20:00)
--- NOTE | 2023-12-26 15:09 | HO.PM.IMPN ---
Subjective Subjective Date of Service: 12/26/23 Interval History: chf execerebation Review of Systems sob somewhat improving no cough or fevers Physical Exam Vital Signs: Vital Signs: Last Vital Signs Temp 97.2 F 12/26/23 11:14 Pulse 72 12/26/23 14:46 Resp 20 12/26/23 14:46 BP 129/62 12/26/23 11:14 Pulse Ox 96 12/26/23 11:14 O2 Del Method Nasal Cannula 12/26/23 11:14 O2 Flow Rate 1 12/26/23 11:14 BMI result Body Mass Index 24.3 General: AOx3, no acute distress Resp: air entry fair ,somewhat diminshed at bases , few scattered rales CVS: S1, S2, RRR GI: +BS, NT, no distention Skin: Warm, dry Neuro: Cranial nerves II-XII grossly intact bilaterally. Motor grossly intact bilaterally Extremities: 1+edema Objective Data Active Medications Acetaminophen (Acetaminophen 325 Mg Tablet) 650 mg PO Q6H PRN PRN Reason: Pain, Mild (Pain Scale 1-3), fever or headache Last Admin: 12/25/23 04:30 Dose: 650 mg Documented By: JUAN DIEGO Albuterol/Ipratropium (Albuterol/Iprat 2.5/0.5mg 3 Ml Ampul.Neb) 3 ml INHALE RQ4H WHILE AWAKE [facility] Last Admin: 12/26/23 14:44 Dose: 3 ml Documented By: GEMMA Apixaban (Apixaban 5 Mg Tablet) 5 mg PO BID [facility] Last Admin: 12/26/23 09:45 Dose: 5 mg Documented By: LUDA Aripiprazole (Aripiprazole 10 Mg Tablet) 10 mg PO BEDTIME [facility] Last Admin: 12/25/23 20:50 Dose: 10 mg Documented By: JUAN DIEGO Atorvastatin Calcium (Atorvastatin Calcium 80 Mg Tablet) 80 mg PO DAILY [facility] Last Admin: 12/26/23 09:45 Dose: 80 mg Documented By: LUDA Benzonatate (Benzonatate 100 Mg Capsule) 100 mg PO TID PRN PRN Reason: Cough Calcium Carbonate (Calcium Carbonate 750 Mg Tab.Chew) 750 mg PO Q4H PRN PRN Reason: Heartburn Duloxetine HCl (Duloxetine Hcl 60 Mg Capsule.Dr) 120 mg PO DAILY [facility] Last Admin: 12/26/23 09:45 Dose: 120 mg Documented By: LUDA Ezetimibe (Ezetimibe 10 Mg Tablet) 10 mg PO DAILY [facility] Last Admin: 12/26/23 09:44 Dose: 10 mg Documented By: LUDA Empagliflozin (Empagliflozin 25 Mg Tablet) 25 mg PO DAILY [facility] Last Admin: 12/26/23 09:45 Dose: 25 mg Documented By: LUDA Ferrous Sulfate (Ferrous Sulfate 324 Mg Tablet.Dr) 324 mg PO DAILY [facility] Last Admin: 12/26/23 09:44 Dose: 324 mg Documented By: LUDA Furosemide (Furosemide 20 Mg/2 Ml Vial) 40 mg IVPUSH BID@0900,1800 [facility]; Protocol Last Admin: 12/26/23 09:44 Dose: 40 mg Documented By: LUDA Glipizide (Glipizide Xl 5 Mg Tab.Er.24) 5 mg PO DAILY@0800 [facility] Last Admin: 12/26/23 09:45 Dose: 5 mg Documented By: LUDA Glucose (Glucose Gel 15 Gm Gel..Gram.) 15 gm PO Q15M PRN; Protocol PRN Reason: per Hypoglycemia Standing Ord. Dextrose (D10) 250 mls @ 750 mls/hr IV Q15M PRN; Protocol PRN Reason: per Hypoglycemia Standing Ord. Insulin Human Lispro (Insulin Lispro 100 Unit/Ml 3 Ml Vial) 0 unit SUBCUT QIDACHS [facility]; Protocol Last Admin: 12/26/23 11:56 Dose: 2 unit Documented By: LUDA Lamotrigine (Lamotrigine 100 Mg Tablet) 100 mg PO BEDTIME [facility] Last Admin: 12/25/23 20:50 Dose: 100 mg Documented By: JUAN DIEGO Magnesium Hydroxide (Milk Of Magnesia 30 Ml Oral.Susp) 30 ml PO DAILY PRN PRN Reason: Constipation Melatonin (Melatonin 3 Mg Tablet) 6 mg PO BEDTIME PRN PRN Reason: Insomnia Methylprednisolone Sodium Succinate (Methylprednisolone Sod Succ 40 Mg/Ml Vial) 40 mg IVPUSH Q24H [facility] Last Admin: 12/26/23 09:44 Dose: 40 mg Documented By: LUDA Metoprolol Succinate (Metoprolol Succinate Er 50 Mg Tab.Er.24h) 50 mg PO DAILY [facility]; Protocol Last Admin: 12/26/23 09:44 Dose: 50 mg Documented By: LUDA Omeprazole (Omeprazole 20 Mg Capsule.Dr) 20 mg PO BID@0630,1630 [facility] Last Admin: 12/26/23 06:24 Dose: 20 mg Documented By: JUAN DIEGO Ondansetron HCl (Ondansetron Hcl 4 Mg/2 Ml Vial) 4 mg IVPUSH Q8H PRN PRN Reason: Nausea and Vomiting Ranolazine (Ranolazine 500 Mg Tab.Er.12h) 500 mg PO BID [facility] Last Admin: 12/26/23 09:44 Dose: 500 mg Documented By: LUDA Sitagliptin Phosphate (Sitagliptin Phosphate 100 Mg Tablet) 100 mg PO DAILY [facility] Last Admin: 12/26/23 09:45 Dose: 100 mg Documented By: LUDA Sodium Chloride (0.9 % Sodium Chloride Flush 3 Ml Syringe) 3 ml IVFLUSH QSHIFT [facility] Last Admin: 12/26/23 09:45 Dose: 3 ml Documented By: LUDA Labs 12/25/23 06:51 12/26/23 06:11 Labs: Laboratory Results - last 24 hr 12/25/23 12/25/23 12/26/23 15:48 20:47 06:11 Hold Purple Top SEE NOTE Anion Gap 11 L Estim Creat Clear Calc 53.0 Estimated GFR > 60 POC Glucose 119 H 159 H Random Glucose 88 Calcium 9.9 12/26/23 12/26/23 07:34 11:09 Hold Purple Top Anion Gap Estim Creat Clear Calc Estimated GFR POC Glucose 90 162 H Random Glucose Calcium Microbiology Microbiology Results: Microbiology 12/24/23 15:46 Urine Culture - Final Urine clean catch - Clean Catch Midstream Strep agalactiae (Grp B) Assessment and Plan (1) Hypoxia: Status: Acute (2) Congestive heart failure: Status: Acute Assessment and Plan: 83-year-old female with a PMH significant for?CAD, NSTEMI, AFib on Eliquis, unspecified CHF, HTN, [id number] type 2 diabetes, SSS s/p pacemaker in place, HTN, HLD, and GERD?who presents to the ED with?worsening SOB and MACIAS times 2-3 days. Pt will be admitted to the hospital for treatment and further evaluation of acute hypoxic respiratory failure in the setting of HFpEF exacerbation. Acute hypoxic respiratory failure in the setting of acute HFpEF exacerbation might have component of undiagnosed COPD(possible acute COPD exacerbation) SOB, MACIAS, non-productive cough somewhat improving elevated BNP, CXR with new right pleural effusion Echo on 12/01 showed hyperdynamic LV EF >70% plan: Follow lytes, mag, I/O so afr 880 ml negative Daily weights, low-salt diet adjusted iv lasix 40 mg daily,added nebs ,steriods Titrate supplemental O2 >92, wean as tolerated Monitor on telemetry Generalized weakness In the setting of above Pt with recent 10-day hospital stay and then PT consult Paroxysmal AFib Continue Eliquis, metoprolol CAD/HLD Continue ezetimibe, statin, ranolazine [id number]-[id number] type 2 diabetes Continue glipizide, Januvia Sliding-scale insulin Diabetic diet Mood disorder Continue aripirazole, duloxetine, lamotrigine GERD Continue PPI DNR/DNI. ongoing hospitalization need for treatment of?generalized weakness in the setting of acute hypoxic respiratory failure in the setting of acute HFpEF/copd exacerbation. Pt will require administration of IV diuretics, supplemental O2, and close monitoring of labs and respiratory status. Quality Stroke Does the patient have a stroke diagnosis?: No VTE Prior VTE?: No VTE Risk Level:: Medical - moderate - high VTE Device Contraindication: Treatment Not Indicated VTE Drug Contraindication: N/A - Med Ordered
[2023-12-26 16:26] LABS: Glucose, Whole Blood 241 mg/dL (60-115)
[2023-12-26 19:44] LABS: Glucose, Whole Blood 229 mg/dL (60-115)
[2023-12-26] MEDS: lamoTRIgine 100 MG TABLET PO (22:44)
[2023-12-26] MEDS: ARIPiprazole 10 MG TABLET PO (22:44)
[2023-12-27] VITALS (7 sets, daily range): BP systolic 111–125; BP diastolic 56–59; PULSE 73–97; RESP 18–20; TEMP 36.1–37; O2SAT 93–96; BMI 24.5
[2023-12-27] MEDS: Melatonin 3 MG TABLET 6 MG PO (01:17)
[2023-12-27] MEDS: Omeprazole 20 MG CAPSULE.DR PO (06:08)
[2023-12-27 06:41] LABS: Anion Gap 12 (12-20); Blood Urea Nitrogen 18 mg/dL (9-16); Carbon Dioxide 33 mmol/L (22-29); Chloride 99 mmol/L (96-108); Creatinine Clr Calc Pharmacy 48.8; Estimated Glomerular Filt Rate > 60; Glucose Random 111 mg/dL (60-115); Potassium 3.8 mmol/L (3.3-5.1); Sodium 140 mmol/L (135-145)
[2023-12-27] MEDS: Albuterol/Iprat 2.5/0.5MG 3 ML AMPUL.NEB INHALE (07:46)
[2023-12-27 07:47] LABS: Glucose, Whole Blood 109 mg/dL (60-115)
[2023-12-27] MEDS: Empagliflozin 25 MG TABLET PO (09:47)
[2023-12-27] MEDS: SITagliptin Phosphate 100 MG TABLET PO (09:47)
[2023-12-27] MEDS: DULoxetine HCl 60 MG CAPSULE.DR 120 MG PO (09:47)
[2023-12-27] MEDS: Apixaban 5 MG TABLET PO (09:47)
[2023-12-27] MEDS: Ferrous Sulfate 324 MG TABLET.DR PO (09:47)
[2023-12-27] MEDS: Atorvastatin Calcium 80 MG TABLET PO (09:48)
[2023-12-27] MEDS: 0.9 % Sodium Chloride Flush 3 ML SYRINGE IVFLUSH (09:48)
[2023-12-27] MEDS: Torsemide 20 MG TABLET PO (09:48)
[2023-12-27] MEDS: Metoprolol Succinate ER 50 MG TAB.ER.24H PO (09:48)
[2023-12-27] MEDS: glipiZIDE XL 5 MG TAB.ER.24 PO (09:48)
[2023-12-27] MEDS: Ranolazine 500 MG TAB.ER.12H PO (09:48)
[2023-12-27] MEDS: Ezetimibe 10 MG TABLET PO (09:48)
[2023-12-27] MEDS: predniSONE 10 MG TABLET 30 MG PO (09:48)
--- NOTE | 2023-12-27 10:13 | PM.DS ---
DS: Providers Provider Date of Service: 12/27/23 Date of admission: 12/24/23 18:06 Date of discharge: 12/27/23 Primary care physician: Yobany Weinberg MD Attending physician on discharge: Jay Bronson Discharging clinician: Jay Bronson DS: Diagnosis Discharge Diagnosis (1) Hypoxia: Status: Acute (2) Congestive heart failure: Status: Acute DS: Summary Hospital Course Hospital Course: 83-year-old female with a PMH significant for?CAD, NSTEMI, AFib on Eliquis, unspecified CHF, HTN, [id number] type 2 diabetes, SSS s/p pacemaker in place, HTN, HLD, and GERD?who presents to the ED with?worsening SOB and MACIAS times 2-3 days. Patient was recently hospitalized here from 11/28-12/08 for similar symptoms and found to be anemic likely secondary to UGIB that improved with transfusion of 2 units PRBCs. Had been on both Plavix and Eliquis; Plavix was discontinued upon discharge per Cardiology. Was also diuresed with IV Lasix and IV acetazolamide acetazolamide. Echocardiogram then found LV systolic function hyperdynamic with EF >70% with mild aortic and tricuspid valve regurgitation. Pt was discharged to [facility] and then discharged home 8 days ago. Patient reports SOB and MACIAS continued to worsen after discharge, especially in the past 2-3 days. Uses a 4 wheeled walker at baseline for ambulation and reports becomes short of breath with the least amount of exertion such as standing up or taking even a few steps. Describes it as ?feeling like an boa constrictor is around my chest?. Feels increasingly fatigued. Chronic nonproductive cough at baseline. Denies recent weight gain or lower leg edema. No fever, chills, nausea, vomiting, abdominal pain. Denies chest pain/pressure or palpitations. No polyuria or dysuria. Does not carry any formal pulmonary diagnosis but has a 20+ pack year smoking history, quit 30 years ago. Not on home O2. In the ED pt was mildly hypertensive up to 153/61 and hypoxic as low as 87% on RA. Labs were significant for elevated BNP 510 (elevated from 361 at time of last discharge), otherwise grossly unremarkable and around baseline. No leukocytosis. Stable H&H or 10.4/36.6. No significant electrolyte abnormalities. Renal function baseline. Hepatic function WNL. UA not convincingly positive with leukocyte esterase and wbc's, but no bacteria or nitrites. CXR showed new small right pleural effusion. EKG demonstrated ventricular paced rhythm with QTc of 507. Pt was treated with Lasix 20mg IV. Pt will be admitted to the hospital for treatment and further evaluation of acute hypoxic respiratory failure in the setting of HFpEF exacerbation. Hospital course: 83-year-old female with a PMH significant for?CAD, NSTEMI, AFib on Eliquis, unspecified CHF, HTN, yys-vqmopvm-ijogsuwld type 2 diabetes, SSS s/p pacemaker in place, HTN, HLD, and GERD?who presents to the ED with?worsening SOB and MACIAS times 2-3 days. Pt will be admitted to the hospital for treatment and further evaluation of acute hypoxic respiratory failure in the setting of HFpEF exacerbation, in addition she might have component of undiagnosed COPD(possible acute COPD exacerbation)- started on iv lasix ,has previous Echo on 12/01 showed hyperdynamic LV EF >70%, in addition added mercedes rodriguez -patient seems improved with above care, diursed well, i/o neg 1.5 liter .sob improved ,sats 97% on room air, walking better . Generalized weakness-seen by pt-recomended home pt. plan: chf education given. adjusted toracemide to 40 mg daily added albuterol prn. prednisone 30 mg po daily for 3 days consider pulm evaluation- outpatient PFT's ,sleep study Above management discussed with the patient in detail length she understand and in agreement with the above plan, time spent 40 minutes and 50% time spent on counseling. Time Attestation Total time managing care of this patient today: 40 mintues. Discharge Coordination Time (in mins): 40 min Quality: Safe Use of Opioids Does Pt have an Active Cancer Diagnosis on the Problem List?: No Quality: Stroke Does the patient have a stroke diagnosis?: No Physical Exam Vital Signs: Vital Signs: Last Vital Signs Temp 98.6 F 12/27/23 08:00 Pulse 97 12/27/23 09:48 Resp 20 12/27/23 08:00 BP 117/59 L 12/27/23 09:48 Pulse Ox 96 12/27/23 08:51 O2 Del Method Room Air 12/27/23 08:00 O2 Flow Rate 1 12/26/23 19:54 BMI result Body Mass Index 24.5 General: AOx3, no acute distress Resp: air entry fair ,no rales or wheezing CVS: S1, S2, RRR GI: +BS, NT, no distention Skin: Warm, dry Neuro: Cranial nerves II-XII grossly intact bilaterally. Motor grossly intact bilaterally Extremities:pulses present,no edema DS: Data Data Completed and Pending Completed studies during hospitalization [Text1]: Procedures Inspection of Upper Intestinal Tract, Via Natural or Artificial Opening Endoscopic (11/29/23) Transfusion of Nonautologous Red Blood Cells into Peripheral Vein, Percutaneous Approach (11/29/23) Labs on day of discharge: Laboratory Results - last 24 hr 12/26/23 12/26/23 12/26/23 11:09 15:31 19:38 Sodium Potassium Chloride Carbon Dioxide Anion Gap BUN Creatinine Estim Creat Clear Calc Estimated GFR POC Glucose 162 H 241 H 229 H Random Glucose Calcium 12/27/23 12/27/23 06:15 07:22 Sodium 140 Potassium 3.8 Chloride 99 Carbon Dioxide 33 H Anion Gap 12 BUN 18 H Creatinine 0.88 Estim Creat Clear Calc 48.8 Estimated GFR > 60 POC Glucose 109 Random Glucose 111 Calcium 10.0 Imaging Chest x-ray: Radiologist's impression: ITS Impressions Chest X-Ray 12/24/23 14:10 IMPRESSION: Small volume right pleural effusion. Electronically signed by: Jonn Faria MD 12/24/2023 03:59 PM EDT RP Discharge Plan Discharge Anticipated Discharge Date/Time: 12/27/23 07:52 Patient Disposition: Home Health Service Discharge Diagnosis: CHF Excerebation ,possible undiagnosed copd Referrals: [facility] [Outside] - 1 Week Yobany Weinberg MD [Primary Care Provider] - 1 Week Discharge Medications: New prednisone 10 mg Tablet 30 mg PO DAILY Qty: 9 0RF albuterol sulfate [Ventolin HFA] 90 mcg/actuation Hfa Aerosol Inhaler 1 puff inhalation RQ4H PRN (Reason: sob) Qty: 1 0RF benzonatate 100 mg Capsule 100 mg PO TID PRN (Reason: Cough) Qty: 14 0RF Continued metoprolol succinate 100 mg tablet extended release 24 hr 50 mg PO DAILY glipizide 5 mg tablet extended release 24hr 5 mg PO DAILY pantoprazole 40 mg tablet,delayed release (DR/EC) 40 mg PO BID@0630,1630 lamotrigine 100 mg tablet 100 mg PO BEDTIME ezetimibe 10 mg tablet 10 mg PO DAILY aripiprazole 10 mg tablet 10 mg PO BEDTIME rosuvastatin 40 mg tablet 40 mg PO DAILY duloxetine 60 mg capsule,delayed release(DR/EC) 120 mg PO DAILY ranolazine 500 mg tablet extended release 12 hr 500 mg PO BID Januvia 100 mg tablet 100 mg PO DAILY Eliquis 5 mg tablet 5 mg PO BID Jardiance 25 mg tablet 25 mg PO DAILY ferrous sulfate 324 mg (65 mg iron) Tablet,Delayed Release (Dr/Ec) 324 mg PO DAILY Qty: 30 0RF Changed torsemide 10 mg tablet 40 mg PO DAILY Qty: 120 0RF Discharge Orders: Discharge Order (Routine); Ordered 12/27/23 Ordered By: Jay Bronson Diet: Advance to usual diet Activity on Discharge: As tolerated Stand Alone Forms: Patient Portal Discharge page Print Language: Frisian Other Ambulatory Orders: Basic Metabolic Panel (Routine) Timeframe: 1 Week Facility: [facility] - Location: Laboratory Ordered By: Jay Bronson B Type Natriuretic Peptide (Routine) Timeframe: 1 Week Facility: [facility] - Location: Laboratory Ordered By: Jay Bronson Care Plan Goals: chf education given Health Concerns: adjusted toracemide to 40 mg daily added albuterol prn. prednisone 30 mg po daily for 3 days consider pulm evaluation- outpatient PFT's ,sleep study Plan of Treatment: as above . Assessment: as above. Patient Instructions: Heart Failure (DC), Chronic Lung Disease and Infection Prevention (DC) Discharge Date/Time: 12/27/23 12:28
--- NOTE | 2023-12-27 10:34 | MHC.CM.PN ---
Pt is medically cleared for discharge home with resumption of [facility] services, pts family will transport her home.
[2023-12-27 11:42] LABS: Glucose, Whole Blood 182 mg/dL (60-115)
[2023-12-27] MEDS: Insulin Lispro 100 UNIT/ML 3 ML VIAL SUBCUT (11:49)
== END 2023-12-27 12:28 | disposition home health service (06) | DRG 291 ==
LOC: HO.ED 17:00 → HO.EDOVER 18:28 → HO.IMC 19:15
PROVIDERS: Admitting Provider Student in an Organized Health Care Education/Training Program; Emergency Provider Emergency Medicine Emergency Medical Services; PCP Internal Medicine; Visit Provider Internal Medicine
DX: I11.0 Hypertensive heart disease with heart failure (principal); I50.33 Acute on chronic diastolic (congestive) heart failure; J96.01 Acute respiratory failure with hypoxia; J44.1 Chronic obstructive pulmonary disease with (acute) exacerbation; I48.0 Paroxysmal atrial fibrillation; Z66 Do not resuscitate; I25.10 Atherosclerotic heart disease of native coronary artery without angina pectoris; E78.5 Hyperlipidemia, unspecified; F39 Unspecified mood [affective] disorder; K21.9 Gastro-esophageal reflux disease without esophagitis; I49.5 Sick sinus syndrome; Z20.822 Contact with and (suspected) exposure to COVID-19; Z95.0 Presence of cardiac pacemaker; Z79.01 Long term (current) use of anticoagulants; Z79.02 Long term (current) use of antithrombotics/antiplatelets; Z79.84 Long term (current) use of oral hypoglycemic drugs; Z79.899 Other long term (current) drug therapy
CPT/HCPCS: 0241U; 36415; 71046; 80048; 80053; 81001; 81003; 82947; 83690; 83735; 83880; 84484; 85025; 85027; 85610; 85730; 87086; 87147; 93005; 97116; 97162; 99285; J1940; J2919

== ENCOUNTER → 2023-12-24 13:37 | Outpatient (BNV) | payer MEDICARE, SELFPAY | PROVIDERS: Admitting Provider Student in an Organized Health Care Education/Training Program; Emergency Provider Emergency Medicine Emergency Medical Services; PCP Internal Medicine; Visit Provider Internal Medicine | DX: R94.31 Abnormal electrocardiogram [ECG] [EKG] (principal) | CPT/HCPCS: 93010 ==

== ENCOUNTER → 2023-12-24 18:06 | Outpatient (BNV) | payer MEDICARE, SELFPAY | PROVIDERS: Admitting Provider Student in an Organized Health Care Education/Training Program; Emergency Provider Emergency Medicine Emergency Medical Services; PCP Internal Medicine; Visit Provider Student in an Organized Health Care Education/Training Program | DX: J96.01 Acute respiratory failure with hypoxia (principal); I50.33 Acute on chronic diastolic (congestive) heart failure | CPT/HCPCS: 99223; 99232; 99239 ==